=== PATIENT | male | born 1955 | race Caucasian/White ===

== ENCOUNTER 2017-08-26 13:55 | Inpatient (IN) | payer OTHER ==
[2017-08-26] MEDS ORDERED: Morphine INJ* 4 MG/ML 1 ML CARPUJECT IV ONE ×2 (16:24→23:17)
--- NOTE | 2017-08-26 18:00 | RAD ---
INDICATION: Left hip pain after fall COMPARISON: None TECHNIQUE: An AP view of the pelvis and AP views of the hip in neutral and abducted position were obtained FINDINGS: Bones: There are no acute bony findings. Joint spaces: The hips articulate normally. The joint spaces are preserved. SI joints/symphysis: The SI joints and symphysis are intact. Other: None IMPRESSION: NO ACUTE BONY FINDINGS.
--- NOTE | 2017-08-26 19:10 | RAD ---
INDICATION: Left hip pain. COMPARISON: Left hip same date. CT pelvis 2010 TECHNIQUE: Noncontrast axial source images were obtained from the iliac crests through the symphysis pubis. FINDINGS: There is a not significantly displaced fracture of the greater trochanter of the left femur. There are no other acute bony findings. There are apparent old superior and inferior pubic rami fractures. The SI joints and symphysis appear intact. The soft tissue elements about the visualized pelvis appear normal. The visualized intraperitoneal structures are remarkable for aortic intimal calcifications. The bladder and prostate appear normal. IMPRESSION: ISOLATED FRACTURE OF THE LEFT GREATER TROCHANTER.
--- NOTE | 2017-08-26 20:28 | PN ---
Progress Note - Progress Note Date of Service: 08/26/17 Note: Patient signed out by Ny ELY pending xray for disposition 61M presents with left hip pain s/p falling in his bathroom. no other injury. no numbness or tingling. copd, mi with stent PMH PE: right leg: good pulses, tender over left hip, limited ROM of hip chest: lungs CTA heart:RRR xray normal but patient states unable to bear weight so will get CT CT shows isolate fracture of left greater trochanter explained results to patient and he states that can not go home as will not be able to use just crutches. discussed with dr rolon for admission. said to road test and he failed. Dr rolon agrees to admit. He then stated to dr rolon that had a syncopal episode that caused the fall when he original said was just a mechanical fall. Dr del angel 9:00: discharge with crutches, can place some weight on area when stands, will be unable to walk on area Diagnosis: fall, left greater trochanter fracture Disposition: Admitted Condition: stable
[2017-08-26] MEDS ORDERED: oxyCODONE/Acetamin 5/325 MG* TAB PO ONE (21:18)
[2017-08-26] MEDS ORDERED: Ondansetron INJ* 2 MG/ML VIAL IV PRN (23:18)
[2017-08-26] MEDS ORDERED: Acetaminophen TAB* 325 MG PO PRN (23:18)
[2017-08-26] MEDS ORDERED: Al Hydrox/Mg Hydrox/Simet LIQ* 30 ML UDC PO PRN (23:18)
[2017-08-26] MEDS ORDERED: Mouth Piece, Nicotine* 1 EACH CARTRIDGE INH PRN (23:28)
[2017-08-26] MEDS ORDERED: Albuterol HFA INHALER* 8 gm MDI INH PRN (23:28)
[2017-08-26] MEDS ORDERED: Albuterol/Ipratropium NEB.SOL* Albuterol 2.5 MG/Ipratropium 0.5 MG 3 ML INH PRN (23:28)
[2017-08-26] MEDS ORDERED: Nicotine Inhaler* 10 MG AMP INH PRN (23:28)
[2017-08-27 00:43] LABS: Hematocrit 45 % (42-52); Mean Corpuscular HGB Conc 33 g/dl (31-36); Mean Corpuscular Hemoglobin 30 pg (27-31); Mean Corpuscular Volume 91 fL (80-94); Mean Platelet Volume 10 um3 (7.4-10.4); Red Blood Count 4.99 10^6/ul (4.0-5.4); Red Cell Distribution Width 14 % (10.5-15); White Blood Count 15.4 10^3/ul (3.5-10.8)
[2017-08-27] MEDS: oxyCODONE/Acetamin 5/325 MG* TAB PO PRN ×2 (01:50→19:45)
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
[2017-08-27] MEDS: Heparin VIAL(*) 5000 UNITS/ML VIAL (FIVE THOUSAND) SUBCUT SCH ×3 (06:11→22:46)
[2017-08-27] MEDS: Morphine INJ* 2 MG/ML 1 ML SYRINGE (TWO MG - NEW SYRINGE VERSION) IV PRN ×3 (06:12→19:49)
[2017-08-27 06:50] LABS: Urine Bilirubin Negative (Negative); Urine Glucose Negative (Negative); Urine Nitrite Negative (Negative)
[2017-08-27 06:50] LABS: BUN/Creatinine Ratio 7.8 (8-20); Calcium 9.4 mg/dL (8.6-10.3); EGFR African American 109.6 (>60); EGFR Non-African American 85.2 (>60); Globulin 2.6 g/dL (2-4); Total Bilirubin 0.8 mg/dL (0.2-1.0); Total Protein 6.6 g/dL (6.4-8.9)
[2017-08-27] MEDS ORDERED: Influenza VAC *QUAD* 2017-18* 0.5 ML SYRINGE IM ONE (09:00)
[2017-08-27] MEDS ORDERED: Pneumococcal *Vac Polyvalent 0.5 ML VIAL IM ONE (09:00)
[2017-08-27] MEDS: Aspirin EC Low Dose* 81 MG TAB.EC PO SCH (09:51)
--- NOTE | 2017-08-27 10:23 | ED ---
Lower Extremity - HPI Summary HPI Summary: Patient presents to the ED with CC of left hip pain s/p mechanical fall this afternoon. He was unable to get up or ambulate and called ambulance. He denies any other sig injuries including head injury or LOC. He remembers falling per patient. History of COPD and stent placement s/p CT. Denies other complaints at this time. Pain is 8/10 and constant, worse with movement and better with rest. There is no obvious deformity seen. No internal rotation of the leg. He states he is unable to move the extremity. No neuro deficits clearly identified on PE. - History of Current Complaint Chief Complaint: EDExtremityLower Stated Complaint: LEFT HIP PAIN, FALL Time Seen by Provider: 08/26/17 15:49 Hx Obtained From: Patient Mechanism Of Injury: Fall From A Standing Position Onset of Pain: Minutes Onset/Duration: Minutes Severity Initially: Severe Severity Currently: Severe Pain Intensity: 6 Pain Scale Used: 0-10 Numeric Timing: Constant Location: Is Discrete @ - left hip - inner thigh Associated Signs And Symptoms: Positive: Negative Aggravating Factor(s): Standing, Ambulation Alleviating Factor(s): Rest Able to Bear Weight: No - Risk Factors Gout Risk Factors: Age Over 40, Male, Hypertension Septic Arthritis Risk Factor: Negative - Allergies/Home Medications Allergies/Adverse Reactions: Allergies Allergy/AdvReac Type Severity Reaction Status Date / Time No Known Allergies Allergy Verified 05/14/15 19:33 Home Medications: Home Medications Acetylcysteine CAP (RENAL)* 600 mg PO BID 08/27/17 [History Confirmed 08/27/17] Albuterol HFA INHALER* [Ventolin HFA Inhaler*] 2 puff INH Q6H PRN 08/27/17 [ History Confirmed 08/27/17] Atenolol TAB* [Tenormin TAB* 25 MG] 25 mg PO DAILY 08/27/17 [History Confirmed 08/27/17] Carboxymethylcellulos 1% OPTH* [Celluvisc 1% OPTH*] 1 drop RIGHT EYE Q3HR [History Confirmed 08/27/17] DULoxetine DR CAP* [Cymbalta CAP*] 90 mg PO DAILY 08/27/17 [History Confirmed ] Erythromycin OPTH OINT* [Erythromycin 0.5% OPTH OINT*] 1 applic RIGHT EYE BEDTIME 08/27/17 [History Confirmed 08/27/17] Multivitamins/Minerals TAB* [Theragran/minerals TAB*] 1 tab PO DAILY 08/27/17 [ History Confirmed 08/27/17] Nutritional Supplements [Ensure] 1 pow PO TID 08/27/17 [History Confirmed ] QUEtiapine TAB* [SEROquel TAB*] 50 mg PO BEDTIME 08/27/17 [History Confirmed ] hydrOXYzine HCL TAB* [Atarax 25 MG TAB*] 25 mg PO DAILY PRN 08/27/17 [History Confirmed 08/27/17] PMH/Surg Hx/FS Hx/Imm Hx Previously Healthy: Yes Endocrine/Hematology History: Denies: Hx Diabetes Cardiovascular History: Reports: Hx Hypertension Denies: Hx Congestive Heart Failure Respiratory History: Reports: Hx Chronic Obstructive Pulmonary Disease (COPD), Hx Pneumonia, Other Respiratory Problems/Disorders - current smoker GI History: Reports: Other GI Disorders - HEP C History: Denies: Hx Renal Disease Musculoskeletal History: Reports: Hx Back Problems - chronic lower back issues Sensory History: Reports: Hx Contacts or Glasses Denies: Hx Hearing Aid Opthamlomology History: Reports: Hx Contacts or Glasses Neurological History: Reports: Other Neuro Impairments/Disorders - Pedal neuropathy, Aneurysm Psychiatric History: Reports: Hx Depression - Surgical History Surgery Procedure, Year, and Place: MANDIBLE FOR FX, LT LUNG REPAIR FOR PNEUMOTHORAX, tonsilectomy Hx Anesthesia Reactions: No - Immunization History Immunizations Up to Date: Yes Infectious Disease History: Yes Infectious Disease History: Reports: Hx Hepatitis, Hx of Known/Suspected MRSA Denies: Traveled Outside the [place] in Last 30 Days - Social History Occupation: Unemployed Lives: Alone Alcohol Use: None Hx Substance Use: Yes Substance Use Type: Reports: Marijuana Hx Tobacco Use: Yes Smoking Status (MU): Heavy Every Day Tobacco Smoker Type: Cigarettes Have You Smoked in the Last Year: Yes Review of Systems Constitutional: Negative Negative: Fever, Chills, Fatigue Eyes: Negative Cardiovascular: Negative Respiratory: Negative Genitourinary: Negative Positive: no symptoms reported, see HPI Positive: Arthralgia - left lateral hip with inner thigh pain Neurological: Negative All Other Systems Reviewed And Are Negative: Yes Physical Exam Triage Information Reviewed: Yes Vital Signs On Initial Exam: Initial Vitals Temp Pulse Resp BP Pulse Ox 97.8 F 95 17 97/60 96 08/26/17 15:49 08/26/17 15:49 08/26/17 15:49 08/26/17 15:49 08/26/17 15:49 Vital Signs Reviewed: Yes Appearance: Positive: Well-Appearing, Well-Nourished Skin: Positive: Warm, Skin Color Reflects Adequate Perfusion Head/Face: Positive: Normal Head/Face Inspection Eyes: Positive: EOMI, XIAO, Conjunctiva Clear Neck: Positive: No Lymphadenopathy Respiratory/Lung Sounds: Positive: Clear to Auscultation, Breath Sounds Present Cardiovascular: Positive: RRR, Pulses are Symmetrical in both Upper and Lower Extremities Musculoskeletal: Positive: Pain @ - inner thigh and lateral hip Neurological: Positive: Speech Normal Psychiatric: Positive: Normal - Elsi Coma Scale Coma Scale Total: 15 Diagnostics - Vital Signs Vital Signs Temp Pulse Resp BP Pulse Ox 08/26/17 21:47 19 08/26/17 21:05 97.7 F 89 16 97/60 94 08/26/17 16:36 19 08/26/17 15:49 97.8 F 95 17 97/60 96 - Laboratory Lab Results: Lab Results 08/26/17 08/26/17 08/26/17 Range/Units 06:00 16:35 16:35 WBC 15.4 H (3.5-10.8) 10^3/ul RBC 4.99 (4.0-5.4) 10^6/ul Hgb 15.0 (14.0-18.0) g/dl Hct 45 (42-52) % MCV 91 (80-94) fL MCH 30 (27-31) pg MCHC 33 (31-36) g/dl RDW 14 (10.5-15) % Plt Count 264 (150-450) 10^3/ul MPV 10 (7.4-10.4) um3 Neut % (Auto) 78.7 (38-83) % Lymph % (Auto) 12.4 L (25-47) % [place] % (Auto) 7.4 (1-9) % Eos % (Auto) 0.9 (0-6) % Baso % (Auto) 0.6 (0-2) % Absolute Neuts (auto) 12.1 H (1.5-7.7) 10^3/ul Absolute Lymphs (auto) 1.9 (1.0-4.8) 10^3/ul Absolute Monos (auto) 1.1 H (0-0.8) 10^3/ul Absolute Eos (auto) 0.1 (0-0.6) 10^3/ul Absolute Basos (auto) 0.1 (0-0.2) 10^3/ul Absolute Nucleated RBC 0.01 10^3/ul Nucleated RBC % 0 INR (Anticoag Therapy) 0.84 L (0.89-1.11) Urine Color Lexi Urine Appearance Clear Urine pH 5.0 (5-9) Ur Specific Artie 1.020 (1.010-1.030) Urine Protein Negative (Negative) Urine Ketones Trace H (Negative) Urine Blood Negative (Negative) Urine Nitrate Negative (Negative) Urine Bilirubin Negative (Negative) Urine Urobilinogen Negative (Negative) Ur Leukocyte Esterase Negative (Negative) Urine Glucose Negative (Negative) Result Diagrams: 08/26/17 16:35 08/27/17 06:06 Lab Statement: Any lab studies that have been ordered have been reviewed, and results considered in the medical decision making process. Lower Extremity Course/Dx - Course Course Of Treatment: left hip - inner thigh pain s/p fall from standing position. Patient states fall was mechanical. Denies other injuries during fall. Unable to bear weight. 05/08. 07/08 with movement. Xray of hip and pelvis obtained. Awaiting results, signed out to Rin Guallpa PA-C at 5:30pm. - Diagnoses Provider Diagnoses: Hip pain Discharge - Discharge Plan Condition: Stable Disposition: ADMITTED TO [facility]
--- NOTE | 2017-08-27 15:58 | PN ---
Subjective Date of Service: 08/27/17 Interval History: Patient seen this afternoon. Reports pain with L hip with any movement. Understands no plans for surgery at this time. Noted that Ortho placed psych consult for SI. Patient asked about this and says he has been having occasional suicidal ideations, more recently after family members have , says "why bother". Denies active plan at this time, then said "I'm all talk". Family History: Unchanged from Admission Social History: Unchanged from Admission Past Medical History: Unchanged from Admission Objective Active Medications: Acetaminophen (Tylenol Tab*) 650 mg PO Q4H PRN Al Hydrox/Mg Hydrox/Simethicone (Maalox Plus*) 30 ml PO Q6H PRN Albuterol (Ventolin Hfa Inhaler*) 2 puff INH Q4H PRN Albuterol/Ipratropium (Duoneb (Albuterol 2.5 Mg/Ipratropium 0.5 Mg)) 1 neb INH Q4H PRN Aspirin (Aspirin Ec Low Dose*) 81 mg PO DAILY [facility] Device (Nicotine Mouth Piece*) 1 each INH .USE WITH NICOTROL PRN Docusate Sodium (Colace Cap*) 100 mg PO BID PRN Heparin Sodium (Porcine) (Heparin Vial(*)) 5,000 units SUBCUT Q8HR [facility] Morphine Sulfate (Morphine Inj (Syringe)*) 2 mg IV Q4H MO Nicotine (Nicotine Inhaler*) 10 mg INH Q2H PRN Nicotine (Nicotine Patch 21 Mg/24 Hr*) 1 patch TRANSDERM DAILY@0800 [facility] Ondansetron HCl (Zofran Inj*) 4 mg IV Q4H PRN Oxycodone/Acetaminophen (Percocet 5/325 Tab*) 1 tab PO Q4H PRN Pharmacy Profile Note (Nicotine Patch Removal Note*) 1 note FOLLOW UP 2100 [facility] Senna (Senokot Tab*) 1 tab PO BID PRN Vital Signs 08/26/17 08/26/17 08/27/17 23:54 23:57 00:45 Temperature 97.3 F 97.7 F Pulse Rate 88 80 Respiratory 19 19 18 Rate Blood Pressure 99/64 99/53 (mmHg) O2 Sat by Pulse 91 91 Oximetry 08/27/17 08/27/17 08/27/17 00:54 01:50 04:23 Temperature 97.7 F Pulse Rate 82 Respiratory 18 18 20 Rate Blood Pressure 99/53 (mmHg) O2 Sat by Pulse 91 Oximetry 08/27/17 08/27/17 08/27/17 06:12 07:55 08:00 Temperature 96.5 F Pulse Rate 78 Respiratory 20 22 22 Rate Blood Pressure 118/74 (mmHg) O2 Sat by Pulse 91 Oximetry Oxygen Devices in Use Now: None Appearance: Middle-aged, disheveled, M, laying in bed in NAD Eyes: No Scleral Icterus Ears/Nose/Mouth/Throat: Mucous Membranes Moist Neck: NL Appearance and Movements; NL JVP Respiratory: Symmetrical Chest Expansion and Respiratory Effort, Clear to Auscultation Cardiovascular: NL Sounds; No Murmurs; No JVD, RRR Abdominal: NL Sounds; No Tenderness; No Distention Lymphatic: No Cervical Adenopathy Extremities: No Edema, - - Clubbing of fingers, L hip pain with movement Skin: No Rash or Ulcers Neurological: Alert and Oriented x 3 Result Diagrams: 08/26/17 16:35 08/27/17 06:06 Microbiology and Other Data: Microbiology 08/27/17 00:04 Nasal Screen MRSA (PCR)(LOAN) - Final Nasal Mrsa Negative Assess/Plan/Problems-Billing Assessment: Fall, possible syncope, L greater trochanteric fx in a 61 yo M with hx of CAD, COPD, tobacco abuse, depression - Patient Problems (1) Fracture of greater trochanter of left femur Current Visit: Yes Comment: Appreciate Ortho assistance. As per noted will plan for non-operative management. Patient is WBAT. (2) Fall Current Visit: Yes Comment: Possible syncope. Continue to monitor on tele. Cannot check orthostatics due to fx. PT eval is in. Analagesia prn (3) Passive suicidal ideations Current Visit: Yes Comment: Psych consulted (4) CAD (coronary artery disease) Current Visit: Yes Comment: Continue ASA. Holding atenolol with borderline BPs (5) COPD (chronic obstructive pulmonary disease) Current Visit: Yes Comment: Dulera, prn duoneb. No evidence of exacerbation. (6) Depression Current Visit: Yes Comment: Continue home meds (7) Tobacco abuse Current Visit: Yes Comment: NRT (8) DVT prophylaxis Current Visit: Yes Comment: HSQ Status and Disposition: Inpatient for fracture, will likely need CHARLENE
[2017-08-27] MEDS: Nicotine PATCH 21 MG/24 HR* PATCH TRANSDERM SCH (16:02)
--- NOTE | 2017-08-27 19:14 | PN ---
Progress Note - Progress Note Date of Service: 08/27/17 Note: Pt seen earlier today by ortho JHOANA. I had reviewed his x-rays yesterday when he was in the ED and only the CT scan showed the fx. D/W him that there are muscles that attach at that area and this is why it hurts trying to move the leg. The fx'd area is not part of the weight bearing portion of the femur and this is why he can put weight on the leg without restriction. D/w him the most intense period of pain is now and this will fade over the next few days. He should continue to work with PT to be mobile and follow up in the office in 10 days and we will get repeat x-rays to make sure he is still non-displaced.
[2017-08-27] MEDS: Docusate CAP* 100 MG PO PRN (19:45)
[2017-08-27] MEDS: Senna TAB PO PRN (19:45)
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
[2017-08-27] MEDS: QUEtiapine TAB* 25 MG PO SCH (21:11)
[2017-08-27] MEDS: Gabapentin CAP(*) 400 MG PO SCH (21:11)
[2017-08-28] MEDS: Mometasone/Formoter 200/5 MDI INH SCH ×2 (04:57→17:12)
[2017-08-28] MEDS: Nicotine Patch Removal NOTE FOLLOW UP SCH ×2 (04:57→21:03)
[2017-08-28] MEDS: Heparin VIAL(*) 5000 UNITS/ML VIAL (FIVE THOUSAND) SUBCUT SCH ×3 (05:32→21:00)
[2017-08-28] MEDS: Morphine INJ* 2 MG/ML 1 ML SYRINGE (TWO MG - NEW SYRINGE VERSION) IV PRN ×3 (07:26→20:55)
[2017-08-28] MEDS: DULoxetine DR CAP* 30 MG CAP.DR PO SCH (07:27)
[2017-08-28] MEDS: Docusate CAP* 100 MG PO PRN (07:27)
[2017-08-28] MEDS: Gabapentin CAP(*) 400 MG PO SCH ×3 (07:27→20:58)
[2017-08-28] MEDS: Nicotine PATCH 21 MG/24 HR* PATCH TRANSDERM SCH (07:27)
[2017-08-28] MEDS: Aspirin EC Low Dose* 81 MG TAB.EC PO SCH (07:27)
[2017-08-28] MEDS ORDERED: Nicotine PATCH 21 MG/24 HR* PATCH TRANSDERM SCH (08:00)
[2017-08-28 08:01] LABS: Hematocrit 45 % (42-52); Mean Corpuscular HGB Conc 34 g/dl (31-36); Mean Corpuscular Hemoglobin 30 pg (27-31); Mean Corpuscular Volume 90 fL (80-94); Mean Platelet Volume 8 um3 (7.4-10.4); Red Blood Count 4.94 10^6/ul (4.0-5.4); Red Cell Distribution Width 14 % (10.5-15); White Blood Count 9.5 10^3/ul (3.5-10.8)
[2017-08-28 08:27] LABS: BUN/Creatinine Ratio 8.2 (8-20); Calcium 9.2 mg/dL (8.6-10.3); EGFR African American 99.3 (>60); EGFR Non-African American 77.2 (>60); Potassium 4.3 mmol/L (3.5-5.0)
[2017-08-28] MEDS: oxyCODONE/Acetamin 5/325 MG* TAB PO PRN (09:58)
[2017-08-28] MEDS: Atenolol TAB* 25 MG PO SCH (09:59)
[2017-08-28] MEDS ORDERED: NS 0.9% 1000 ML* 1,000 ML IV ONE (10:35)
--- NOTE | 2017-08-28 13:12 | PN ---
Subjective Date of Service: 08/28/17 Interval History: Patient seen this morning. Continues to have pain, nervous about bearing weight. Says appetite has been improving, he ate all of his breakfast. Denies EtOH use. Family History: Unchanged from Admission Social History: Unchanged from Admission Past Medical History: Unchanged from Admission Objective Active Medications: Acetaminophen (Tylenol Tab*) 650 mg PO Q4H PRN PRN Reason: FEVER/PAIN Al Hydrox/Mg Hydrox/Simethicone (Maalox Plus*) 30 ml PO Q6H PRN PRN Reason: INDIGESTION Last Admin: 08/27/17 06:10 Dose: 30 ml Albuterol (Ventolin Hfa Inhaler*) 2 puff INH Q4H PRN PRN Reason: SOB/WHEEZING Albuterol/Ipratropium (Duoneb (Albuterol 2.5 Mg/Ipratropium 0.5 Mg)) 1 neb INH Q4H PRN PRN Reason: SOB/WHEEZING Aspirin (Aspirin Ec Low Dose*) 81 mg PO DAILY [facility] Last Admin: 08/28/17 07:27 Dose: 81 mg Atenolol (Tenormin Tab*) 25 mg PO DAILY [facility] Last Admin: 08/28/17 09:59 Dose: 25 mg Device (Nicotine Mouth Piece*) 1 each INH .USE WITH NICOTROL PRN PRN Reason: CRAVING Docusate Sodium (Colace Cap*) 100 mg PO BID PRN PRN Reason: CONSTIPATION Last Admin: 08/28/17 07:27 Dose: 100 mg Duloxetine HCl (Cymbalta Cap*) 90 mg PO DAILY [facility] Last Admin: 08/28/17 07:27 Dose: 90 mg Gabapentin (Neurontin Cap(*)) 1,200 mg PO TID [facility] Last Admin: 08/28/17 07:27 Dose: 1,200 mg Heparin Sodium (Porcine) (Heparin Vial(*)) 5,000 units SUBCUT Q8HR [facility] Last Admin: 08/28/17 05:32 Dose: 5,000 units Sodium Chloride (Ns 0.9% 1000 Ml*) 1,000 mls @ 1,000 mls/hr IV .PER RATE ONE Stop: 08/28/17 11:34 Mometasone Furoate/Formoterol Fumar (Dulera 200/5 Mdi*) 1 puff INH BID [facility] Last Admin: 08/28/17 04:57 Dose: Not Given Morphine Sulfate (Morphine Inj (Syringe)*) 2 mg IV Q4H PRN PRN Reason: PAIN Last Admin: 08/28/17 07:26 Dose: 2 mg Nicotine (Nicotine Inhaler*) 10 mg INH Q2H PRN PRN Reason: CRAVING Nicotine (Nicotine Patch 21 Mg/24 Hr*) 1 patch TRANSDERM DAILY@0800 [facility] Last Admin: 08/28/17 07:27 Dose: 1 patch Ondansetron HCl (Zofran Inj*) 4 mg IV Q4H PRN PRN Reason: NAUSEA/VOMITING Last Admin: 08/27/17 19:46 Dose: 4 mg Oxycodone/Acetaminophen (Percocet 5/325 Tab*) 1 tab PO Q4H PRN PRN Reason: Pain Last Admin: 08/28/17 09:58 Dose: 1 tab Pharmacy Profile Note (Nicotine Patch Removal Note*) 1 note FOLLOW UP 2100 [facility] Last Admin: 08/28/17 04:57 Dose: Not Given Quetiapine Fumarate (Seroquel Tab*) 50 mg PO BEDTIME [facility] Last Admin: 08/27/17 21:11 Dose: 50 mg Senna (Senokot Tab*) 1 tab PO BID PRN PRN Reason: CONSTIPATION Last Admin: 08/27/17 19:45 Dose: 1 tab Vital Signs 08/27/17 08/27/17 08/27/17 15:21 17:45 19:21 Temperature 97.8 F 97.4 F Pulse Rate 81 73 Respiratory 16 16 16 Rate Blood Pressure 118/64 117/64 (mmHg) O2 Sat by Pulse 94 95 Oximetry 08/28/17 08/28/17 08/28/17 09:44 09:58 10:05 Temperature 98 F Pulse Rate 133 Respiratory 20 18 18 Rate Blood Pressure 99/69 (mmHg) O2 Sat by Pulse 92 Oximetry Oxygen Devices in Use Now: None Appearance: Middle-aged, disheveled M, laying in bed in NAD Eyes: No Scleral Icterus Ears/Nose/Mouth/Throat: - - Dry MM Neck: NL Appearance and Movements; NL JVP Respiratory: Symmetrical Chest Expansion and Respiratory Effort, Clear to Auscultation Cardiovascular: NL Sounds; No Murmurs; No JVD, - - Tachycardic Abdominal: NL Sounds; No Tenderness; No Distention Lymphatic: No Cervical Adenopathy Extremities: No Edema Skin: No Rash or Ulcers Neurological: Alert and Oriented x 3 Result Diagrams: 08/28/17 07:54 08/28/17 07:54 Additional Lab and Data: . Microbiology and Other Data: . Assess/Plan/Problems-Billing Assessment: Fall, possible syncope, L greater trochanteric fx in a 61 yo M with hx of CAD, COPD, tobacco abuse, depression - Patient Problems (1) Fracture of greater trochanter of left femur Current Visit: Yes Comment: Appreciate Ortho assistance. As per noted will plan for non-operative management. Patient is WBAT. PT eval. (2) Tachycardia Current Visit: Yes Comment: Sinus. May be combination of dehydration, pain and rebound-tachycardia from holding beta-kari. Resume Atenolol, will bolus 1L NS. (3) Fall Current Visit: Yes Comment: Possible syncope. Continue to monitor on tele. PT eval. Analagesia prn (4) Passive suicidal ideations Current Visit: Yes Comment: Psych consulted (5) CAD (coronary artery disease) Current Visit: Yes Comment: Continue ASA. Resume atenolol. (6) COPD (chronic obstructive pulmonary disease) Current Visit: Yes Comment: Dulera, prn duoneb. No evidence of exacerbation. (7) Depression Current Visit: Yes Comment: Continue home meds (8) Tobacco abuse Current Visit: Yes Comment: NRT (9) DVT prophylaxis Current Visit: Yes Comment: HSQ Status and Disposition: Inpatient for fracture, will likely need [facility]LEN[facility]
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
[2017-08-28] MEDS: QUEtiapine TAB* 25 MG PO SCH (20:59)
[2017-08-29] MEDS: oxyCODONE/Acetamin 5/325 MG* TAB PO PRN ×2 (04:11→08:10)
[2017-08-29] MEDS ORDERED: NS 0.9% 250 ML* 250 ML IV ONE (05:04)
[2017-08-29] MEDS: Heparin VIAL(*) 5000 UNITS/ML VIAL (FIVE THOUSAND) SUBCUT SCH ×3 (05:17→23:18)
[2017-08-29] MEDS: Mometasone/Formoter 200/5 MDI INH SCH ×4 (07:44→21:39)
[2017-08-29] MEDS: Nicotine PATCH 21 MG/24 HR* PATCH TRANSDERM SCH (08:08)
[2017-08-29] MEDS: Gabapentin CAP(*) 400 MG PO SCH ×3 (08:09→23:13)
[2017-08-29] MEDS: DULoxetine DR CAP* 30 MG CAP.DR PO SCH (08:09)
[2017-08-29] MEDS: Aspirin EC Low Dose* 81 MG TAB.EC PO SCH (08:10)
[2017-08-29] MEDS: Atenolol TAB* 25 MG PO SCH (08:10)
--- NOTE | 2017-08-29 10:29 | PN ---
Subjective Date of Service: 08/29/17 Interval History: HOSPITALIST PROGRESS NOTE Patient seen and examined at bedside. He's trying to work with PT, but experiencing severe thigh pain and spasms. Family History: Unchanged from Admission Social History: Unchanged from Admission Past Medical History: Unchanged from Admission Objective Active Medications: Acetaminophen (Tylenol Tab*) 650 mg PO Q4H PRN PRN Reason: FEVER/PAIN Al Hydrox/Mg Hydrox/Simethicone (Maalox Plus*) 30 ml PO Q6H PRN PRN Reason: INDIGESTION Last Admin: 08/27/17 06:10 Dose: 30 ml Albuterol (Ventolin Hfa Inhaler*) 2 puff INH Q4H PRN PRN Reason: SOB/WHEEZING Albuterol/Ipratropium (Duoneb (Albuterol 2.5 Mg/Ipratropium 0.5 Mg)) 1 neb INH Q4H PRN PRN Reason: SOB/WHEEZING Aspirin (Aspirin Ec Low Dose*) 81 mg PO DAILY [facility] Last Admin: 08/29/17 08:10 Dose: 81 mg Atenolol (Tenormin Tab*) 25 mg PO DAILY [facility] Last Admin: 08/29/17 08:10 Dose: 25 mg Device (Nicotine Mouth Piece*) 1 each INH .USE WITH NICOTROL PRN PRN Reason: CRAVING Docusate Sodium (Colace Cap*) 100 mg PO BID PRN PRN Reason: CONSTIPATION Last Admin: 08/28/17 07:27 Dose: 100 mg Duloxetine HCl (Cymbalta Cap*) 90 mg PO DAILY [facility] Last Admin: 08/29/17 08:09 Dose: 90 mg Gabapentin (Neurontin Cap(*)) 1,200 mg PO TID [facility] Last Admin: 08/29/17 08:09 Dose: 1,200 mg Heparin Sodium (Porcine) (Heparin Vial(*)) 5,000 units SUBCUT Q8HR [facility] Last Admin: 08/29/17 05:17 Dose: 5,000 units Mometasone Furoate/Formoterol Fumar (Dulera 200/5 Mdi*) 1 puff INH BID [facility] Last Admin: 08/29/17 07:44 Dose: Not Given Morphine Sulfate (Morphine Inj (Syringe)*) 2 mg IV Q4H PRN PRN Reason: PAIN Last Admin: 08/28/17 20:55 Dose: 2 mg Nicotine (Nicotine Inhaler*) 10 mg INH Q2H PRN PRN Reason: CRAVING Nicotine (Nicotine Patch 21 Mg/24 Hr*) 1 patch TRANSDERM DAILY@0800 [facility] Last Admin: 08/29/17 08:08 Dose: 1 patch Ondansetron HCl (Zofran Inj*) 4 mg IV Q4H PRN PRN Reason: NAUSEA/VOMITING Last Admin: 08/27/17 19:46 Dose: 4 mg Oxycodone/Acetaminophen (Percocet 5/325 Tab*) 1 tab PO Q4H PRN PRN Reason: Pain Last Admin: 08/29/17 08:10 Dose: 1 tab Pharmacy Profile Note (Nicotine Patch Removal Note*) 1 note FOLLOW UP 2100 [facility] Last Admin: 08/28/17 21:03 Dose: Not Given Quetiapine Fumarate (Seroquel Tab*) 50 mg PO BEDTIME [facility] Last Admin: 08/28/17 20:59 Dose: 50 mg Senna (Senokot Tab*) 1 tab PO BID PRN PRN Reason: CONSTIPATION Last Admin: 08/27/17 19:45 Dose: 1 tab Vital Signs 08/29/17 08/29/17 08/29/17 04:11 07:28 07:43 Temperature 98.8 F Pulse Rate 67 Respiratory 18 14 16 Rate Blood Pressure 104/59 (mmHg) O2 Sat by Pulse 94 Oximetry Oxygen Devices in Use Now: None Appearance: Elderly male lying in bed in moderate distress due to pain. Eyes: No Scleral Icterus Ears/Nose/Mouth/Throat: Mucous Membranes Moist Neck: Trachea Midline Respiratory: Symmetrical Chest Expansion and Respiratory Effort, Clear to Auscultation Cardiovascular: RRR - Normal S1 and S2 Abdominal: NL Sounds; No Tenderness; No Distention Extremities: No Edema Neurological: Alert and Oriented x 3, NL Muscle Strength and Tone Result Diagrams: 08/28/17 07:54 08/28/17 07:54 Assess/Plan/Problems-Billing Assessment: Mr Juares is a 61 yo M with hx of CAD, COPD, tobacco abuse, depression who presented to ED after a fall vs syncope, found to have left greater trochanteric fracture. - Patient Problems (1) Fracture of greater trochanter of left femur Comment: - Appreciate Ortho input - non-operative management. - Continue WBAT and PT as tolerated. - Continue pain management. - Start Robaxin for muscle spasms. (2) Tachycardia Comment: - Secondary to dehydration, pain and rebound-tachycardia - resolved. - Continue Atenolol. (3) Fall Comment: - Fall vs syncope. No significant arrhythmias on Telemetry. - Check echocardiogarm. (4) Passive suicidal ideations Comment: - Psych input appreciated - continue Duloxetine. (5) CAD (coronary artery disease) Comment: - Continue ASA and atenolol. (6) COPD (chronic obstructive pulmonary disease) Comment: - No evidence of exacerbation. - Continue bronchodilators. (7) DVT prophylaxis Comment: - SQ heparin. (8) DNR (do not resuscitate) Status and Disposition: Inpatient for management of great trochanter fracture, will likely need CHARLENE.
[2017-08-29] MEDS: Methocarbamol TAB* 500 MG PO PRN ×2 (13:58→23:29)
--- NOTE | 2017-08-29 14:35 | PN ---
Progress Note - Progress Note Date of Service: 08/29/17 SOAP: Subjective: 61 y/o male s/p fall with greater troch fx, non-op, seen by DR. Velarde. Patient has been trying to walk, howevere increased pain, muscle spasm with walking. vss febrile. Objective: General- well appearing, NAD AO MSK- tenderness over mid femur anteriorly and over greater troch region on L left. + DF/PF b/l, neg homans b/l. Vital Signs Temp Pulse Resp BP Pulse Ox 98.4 F 76 18 85/53 94 08/29/17 12:22 08/29/17 12:22 08/29/17 13:58 08/29/17 12:22 08/29/17 12:22 Assessment: Stable s/p greater troch fx, non-op, day #3 Plan: - Continue pain management. Patient had muscle relaxer added o regimen, has not tried. As well will add lidocaine patches for local pain control. - Patient admitted for muliple over co-morbidities, will continue to follow. Active Medications Generic Name Dose Route Start Last Admin Trade Name Freq PRN Reason Stop Dose Admin Acetaminophen 650 mg 08/26/17 23:18 08/29/17 13:58 Tylenol Tab* PO 650 mg Q4H PRN Administration FEVER/PAIN Al Hydrox/Mg Hydrox/Simethicone 30 ml 08/26/17 23:18 08/27/17 06:10 Maalox Plus* PO 30 ml Q6H PRN Administration INDIGESTION Albuterol 2 puff 08/26/17 23:28 Ventolin Hfa Inhaler* INH Q4H PRN SOB/WHEEZING Albuterol/Ipratropium 1 neb 08/26/17 23:28 Duoneb (Albuterol 2.5 Mg/Ipratropium 0.5 Mg) INH Q4H PRN SOB/WHEEZING Aspirin 81 mg 08/27/17 09:00 08/29/17 08:10 Aspirin Ec Low Dose* PO 81 mg DAILY DAPHNE Administration Atenolol 25 mg 08/28/17 10:00 08/29/17 08:10 Tenormin Tab* PO 25 mg DAILY DAPHNE Administration Device 1 each 08/26/17 23:28 Nicotine Mouth Piece* INH .USE WITH NICOTROL PRN CRAVING Docusate Sodium 100 mg 08/26/17 23:18 11/30/17 07:27 Colace Cap* PO 100 mg BID PRN Administration CONSTIPATION Duloxetine HCl 90 mg 08/28/17 09:00 08/29/17 08:09 Cymbalta Cap* PO 90 mg DAILY DAPHNE Administration Gabapentin 1,200 mg 08/27/17 21:00 08/29/17 13:57 Neurontin Cap(*) PO 1,200 mg TID DAPHNE Administration Heparin Sodium (Porcine) 5,000 units 08/27/17 06:00 08/29/17 13:57 Heparin Vial(*) SUBCUT 5,000 units Q8HR DAPHNE Administration Lidocaine 1 patch 08/30/17 09:00 Lidoderm 5% Patch* TRANSDERM DAILY DAPHNE Methocarbamol 500 mg 08/29/17 10:27 08/29/17 13:58 Robaxin Tab* PO 500 mg TID PRN Administration Muscle spasm Mometasone Furoate/Formoterol Fumar 1 puff 08/29/17 11:00 08/29/17 11:23 Dulera 200/5 Mdi* INH 1 puff BID DAPHNE Administration Morphine Sulfate 2 mg 08/26/17 23:18 08/28/17 20:55 Morphine Inj (Syringe)* IV 2 mg Q4H PRN Administration PAIN Nicotine 10 mg 08/26/17 23:28 Nicotine Inhaler* INH Q2H PRN CRAVING Nicotine 1 patch 08/27/17 15:35 08/29/17 08:08 Nicotine Patch 21 Mg/24 Hr* TRANSDERM 1 patch DAILY@0800 DAPHNE Administration Ondansetron HCl 4 mg 08/26/17 23:18 08/27/17 19:46 Zofran Inj* IV 4 mg Q4H PRN Administration NAUSEA/VOMITING Oxycodone/Acetaminophen 1 tab 08/26/17 23:18 08/29/17 08:10 Percocet 5/325 Tab* PO 1 tab Q4H PRN Administration Pain Pharmacy Profile Note 1 note 08/27/17 21:00 08/28/17 21:03 Nicotine Patch Removal Note* FOLLOW UP Not Given [facility] Pharmacy Profile Note 1 note 08/29/17 21:00 Lidocaine Patch Remove* N/A [address] [facility] Quetiapine Fumarate 50 mg 08/27/17 21:00 08/28/17 20:59 Seroquel Tab* PO 50 mg BEDTIME DAPHNE Administration Senna 1 tab 08/26/17 23:18 08/27/17 19:45 Senokot Tab* PO 1 tab BID PRN Administration CONSTIPATION
[2017-08-29] MEDS: Morphine INJ* 2 MG/ML 1 ML SYRINGE (TWO MG - NEW SYRINGE VERSION) IV PRN ×2 (16:15→23:30)
[2017-08-29] MEDS: Lidocaine PATCH 5%* 1 PATCH TRANSDERM SCH (17:14)
--- NOTE | 2017-08-29 17:16 | ECHO ---
Patient: AQUILES ALEXANDRA [facility] Rec#: [id number] : 1955 Date: 08/29/2017 Age: 61y Height: 167.6 cm / 66.0 in Weight: 45.4 kg / 100.1 lbs Sex: M BSA: 1.5 Room#: [facility] Admit Date#: 08/26/2017 Type: Inpatient Referring: Mercedes Alcala MD Reading: Michael Landaverde DO Reading: Michael Landaverde DO Floor Layer: Raeann Franklin RN RDCS CC: Yonatan Barroso MD Transthoracic Echocardiogram Indication: Syncope, cardiac murmur BP: 85/53 HR: 75 Rhythm: NSR Findings History: CAD S/P PCI 2007, HTN, COPD, smoker Technical Comments: The study is technically limited due to poor acoustic windows. The study is technically limited due to patient body habitus. The study is technically limited due to the patient's history of COPD. The study is technically limited due to the patient's smoking history. No standard parasternal or apical windows were able to be obtained. Images are from low parasternal and subcostal views. Completed at 1650. Left Ventricle: The left ventricular chamber size is normal. There is no left ventricular hypertrophy. Global left ventricular wall motion and contractility are within normal limits. There is normal left ventricular systolic function. The estimated ejection fraction is 55-60%. Normal left ventricular diastolic filling is observed. Left Atrium: The left atrial chamber size is normal. Right Ventricle: The right ventricular chamber size and systolic function are within normal limits. Right Atrium: The right atrial cavity size is normal. Aortic Valve: The aortic valve is trileaflet. The aortic valve leaflets are mildly thickened. There is a trace of aortic regurgitation. There is no evidence of aortic stenosis. Mitral Valve: The mitral valve leaflets are mildly thickened. There is a trace of mitral regurgitation. There is no evidence of mitral stenosis. Tricuspid Valve: The tricuspid valve leaflets are normal. There is trace to mild tricuspid regurgitation. There is evidence of mild pulmonary hypertension. There is no tricuspid stenosis. Pulmonic Valve: The pulmonic valve appears normal. There is a trace pulmonic regurgitation. There is no pulmonic stenosis. Pericardium: There is no significant pericardial effusion. Aorta: The ascending aorta is not well visualized. The aortic arch is not well visualized. There is moderate dilatation of the aortic root.at 4.4 cm Pulmonary Artery: The main pulmonary artery is not well visualized. Venous: The inferior vena cava appears normal in size. There is a greater than 50% respiratory change in the inferior vena cava dimension. Conclusions No standard parasternal or apical windows were able to be obtained. Images are from low parasternal and subcostal views. Study is diagnostic quality. The left ventricular chamber size is normal. Normal LV wall thickness. Global left ventricular wall motion and contractility are within normal limits. There is normal left ventricular systolic function. The estimated ejection fraction is 55-60%. The left atrial chamber size is normal. The right ventricular chamber size and systolic function are within normal limits. No significant valvular abnormalities noted. There is evidence of mild pulmonary hypertension. There is moderate dilatation of the aortic root at 4.4 cm The aortic arch is not well visualized. The ascending aorta is not well visualized. No prior studies available for comparison at time of interpretation. Measurements Name Value Normal Range RVDdMajor (2D) 3.4 cm (2.2 - 4.4) RVAW (2D) 0.8 cm (0.2 - 0.5) RAd ISD 4CH 4.5 cm (3.4 - 4.9) RA (A4C)W 4.5 cm (2.9 - 4.6) IVSd (2D) 1 cm (0.6 - 1) LVPWd (2D) 0.9 cm (0.6 - 1) LVIDd (2D) 4.7 cm (3.6 - 5.4) LVIDs (2D) 3.4 cm - LV FS (2D) 28 % (25 - 45) Aortic Annulus 2.1 cm (1.4 - 2.6) Ao root diameter (2D) 4.4 cm (2.1 - 3.5) LA dimension (AP) 2D 3.2 cm (2.3 - 3.8) LAd ISD 4CH 4.7 cm (2.9 - 5.3) LA ISD 4CH W 4.5 cm (2.5 - 4.5) Name Value Normal Range MV E-wave Vmax 0.48 m/sec - MV deceleration time 179 msec - MV A-wave Vmax 0.5 m/sec - MV E:A ratio 0.98 ratio - LV septal e' Vmax 0.11 m/sec - LV lateral e' Vmax 0.11 m/sec - LV E:e' septal ratio 4.4 ratio - LV E:e' lateral ratio 4.4 ratio - Name Value Normal Range AV Vmax 1.2 m/sec - AV VTI 22 cm - AV peak gradient 6.1 mmHg - AV mean gradient 3.4 mmHg - LVOT Vmax 0.66 m/sec - LVOT VTI 13.5 cm - LVOT peak gradient 1.7 mmHg - LVOT mean gradient 0.84 mmHg - Name Value Normal Range TR Vmax 2.9 m/sec - TR peak gradient 34 mmHg - RAP 3 mmHg - RVSP 37 mmHg - IVC diameter 1.5 cm - Name Value Normal Range PV Vmax 0.62 m/sec -
[2017-08-29] MEDS: Lidocaine Patch REMOVE* 1 NOTE MISC SCH (23:17)
[2017-08-29] MEDS: Nicotine Patch Removal NOTE FOLLOW UP SCH (23:17)
[2017-08-29] MEDS: QUEtiapine TAB* 25 MG PO SCH (23:17)
[2017-08-30] MEDS: Lidocaine PATCH 5%* 1 PATCH TRANSDERM SCH (07:53)
[2017-08-30] MEDS: Morphine INJ* 2 MG/ML 1 ML SYRINGE (TWO MG - NEW SYRINGE VERSION) IV PRN ×2 (07:53→11:58)
[2017-08-30] MEDS: Nicotine PATCH 21 MG/24 HR* PATCH TRANSDERM SCH (07:54)
[2017-08-30] MEDS: DULoxetine DR CAP* 30 MG CAP.DR PO SCH (07:54)
[2017-08-30] MEDS: Atenolol TAB* 25 MG PO SCH ×2 (07:55→11:52)
[2017-08-30] MEDS: Gabapentin CAP(*) 400 MG PO SCH ×3 (07:55→21:02)
[2017-08-30] MEDS: Aspirin EC Low Dose* 81 MG TAB.EC PO SCH (07:55)
[2017-08-30] MEDS: Heparin VIAL(*) 5000 UNITS/ML VIAL (FIVE THOUSAND) SUBCUT SCH ×3 (07:57→21:10)
[2017-08-30] MEDS: Mometasone/Formoter 200/5 MDI INH SCH (07:57)
[2017-08-30] MEDS ORDERED: Lidocaine PATCH 5%* 1 PATCH TRANSDERM SCH (09:00)
--- NOTE | 2017-08-30 11:08 | PN ---
Progress Note - Progress Note Date of Service: 08/30/17 SOAP: Subjective: Pt is doing well. He continues to have pain. Denies F/C, N/T, and calf pain. Objective: PE 61 y/o WDWN M NAD, lying in bed comfortably LLE- skin intact, tender over greater troch, +DF/PF, calf soft NT, +2 DP pulse, SILT Vital Signs Temp Pulse Resp BP Pulse Ox 98.5 F 71 18 107/59 95 08/30/17 07:34 08/30/17 07:34 08/30/17 07:55 08/30/17 07:34 08/30/17 07:34 Assessment: Stable s/p left greater troch fx, non-op, day #4 Plan: - Continue pain management. Cont muscle relaxer and lidocaine patch -WBAT LLE with crutches or walker - Pt admitted for multiple comorbidities - dispo per medicine. Orthopedically stable for DC - will cont to follow
[2017-08-30] MEDS ORDERED: HYDROcodone/ACETAMIN 5-325 MG* 1 TAB PO PRN (13:19)
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
[2017-08-30] MEDS: Morphine INJ* 4 MG/ML 1 ML CARPUJECT IV PRN ×3 (14:37→21:03)
[2017-08-30] MEDS: HYDROcodone/ACETAMIN 5-325 MG* 1 TAB PO PRN (16:01)
[2017-08-30] MEDS: Methocarbamol TAB* 500 MG PO PRN (18:01)
[2017-08-30] MEDS: QUEtiapine TAB* 25 MG PO SCH (21:08)
[2017-08-30] MEDS: Lidocaine Patch REMOVE* 1 NOTE MISC SCH (21:14)
[2017-08-30] MEDS: Nicotine Patch Removal NOTE FOLLOW UP SCH (21:25)
[2017-08-31] MEDS: Morphine INJ* 4 MG/ML 1 ML CARPUJECT IV PRN ×7 (00:36→20:27)
[2017-08-31] MEDS: Mometasone/Formoter 200/5 MDI INH SCH ×3 (06:45→19:35)
[2017-08-31] MEDS: Heparin VIAL(*) 5000 UNITS/ML VIAL (FIVE THOUSAND) SUBCUT SCH ×3 (07:47→20:26)
[2017-08-31] MEDS: Atenolol TAB* 25 MG PO SCH (09:10)
[2017-08-31] MEDS: DULoxetine DR CAP* 30 MG CAP.DR PO SCH (09:34)
[2017-08-31] MEDS: Methocarbamol TAB* 500 MG PO PRN ×2 (09:34→17:26)
[2017-08-31] MEDS: Gabapentin CAP(*) 400 MG PO SCH ×3 (09:35→20:23)
[2017-08-31] MEDS: Aspirin EC Low Dose* 81 MG TAB.EC PO SCH (09:35)
[2017-08-31] MEDS: Nicotine PATCH 21 MG/24 HR* PATCH TRANSDERM SCH (09:36)
[2017-08-31] MEDS: Lidocaine PATCH 5%* 1 PATCH TRANSDERM SCH (09:37)
--- NOTE | 2017-08-31 10:41 | PN ---
Progress Note - Progress Note Date of Service: 08/31/17 SOAP: Subjective: Pt is doing well. Continued pain despite increase in pain medication. Has pain with WB but has been OOB. Denies F/C, CP/SOB or calf pain Objective: PE: 61 M WDWN LLE- SKin intact, tender over greater troch, able F/E knee. +DF/PF ankle, calf soft NT, NVI Vital Signs Temp Pulse Resp BP Pulse Ox 97.7 F 77 20 94/61 93 08/31/17 07:45 08/31/17 07:45 08/31/17 09:35 08/31/17 09:09 08/31/17 04:06 Assessment: Stable s/p left greater troch fx, non-op, day #5 Plan: - Continue pain management. -Ice pack q shift to help with pain -WBAT LLE with crutches or walker - dispo per medicine. Orthopedically stable for DC. Will likely need CHARLENE - will cont to follow
[2017-08-31] MEDS: HYDROcodone/ACETAMIN 5-325 MG* 1 TAB PO PRN (13:21)
--- NOTE | 2017-08-31 18:45 | PN ---
Subjective Date of Service: 08/31/17 Interval History: HOSPITALIST PROGRESS NOTE Patient seen and examined at bedside. He feels better today. Pain is better controlled and he was able to transfer from a chair to bed, although very slowly. Family History: Unchanged from Admission Social History: Unchanged from Admission Past Medical History: Unchanged from Admission Objective Active Medications: Acetaminophen (Tylenol Tab*) 650 mg PO Q4H PRN PRN Reason: FEVER/PAIN Last Admin: 08/29/17 13:58 Dose: 650 mg Hydrocodone Bitart/Acetaminophen ([place] 5-325 Tab*) 2 tab PO Q4H PRN PRN Reason: Moderate Pain Last Admin: 08/31/17 13:21 Dose: 2 tab Hydrocodone Bitart/Acetaminophen ([place] 5-325 Tab*) 1 tab PO Q4H PRN PRN Reason: Mild Pain Al Hydrox/Mg Hydrox/Simethicone (Maalox Plus*) 30 ml PO Q6H PRN PRN Reason: INDIGESTION Last Admin: 08/27/17 06:10 Dose: 30 ml Albuterol (Ventolin Hfa Inhaler*) 2 puff INH Q4H PRN PRN Reason: SOB/WHEEZING Albuterol/Ipratropium (Duoneb (Albuterol 2.5 Mg/Ipratropium 0.5 Mg)) 1 neb INH Q4H PRN PRN Reason: SOB/WHEEZING Aspirin (Aspirin Ec Low Dose*) 81 mg PO DAILY [facility] Last Admin: 08/31/17 09:35 Dose: 81 mg Atenolol (Tenormin Tab*) 25 mg PO DAILY [facility] Last Admin: 08/31/17 09:10 Dose: Not Given Device (Nicotine Mouth Piece*) 1 each INH .USE WITH NICOTROL PRN PRN Reason: CRAVING Docusate Sodium (Colace Cap*) 100 mg PO BID PRN PRN Reason: CONSTIPATION Last Admin: 08/28/17 07:27 Dose: 100 mg Duloxetine HCl (Cymbalta Cap*) 90 mg PO DAILY [facility] Last Admin: 08/31/17 09:34 Dose: 90 mg Gabapentin (Neurontin Cap(*)) 1,200 mg PO TID [facility] Last Admin: 08/31/17 13:20 Dose: 1,200 mg Heparin Sodium (Porcine) (Heparin Vial(*)) 5,000 units SUBCUT Q8HR [facility] Last Admin: 08/31/17 13:21 Dose: 5,000 units Lidocaine (Lidoderm 5% Patch*) 1 patch TRANSDERM DAILY [facility] Last Admin: 08/31/17 09:37 Dose: 1 patch Methocarbamol (Robaxin Tab*) 500 mg PO TID PRN PRN Reason: Muscle spasm Last Admin: 08/31/17 17:26 Dose: 500 mg Mometasone Furoate/Formoterol Fumar (Dulera 200/5 Mdi*) 1 puff INH BID [facility] Last Admin: 08/31/17 08:11 Dose: 1 puff Morphine Sulfate (Morphine Inj (Syringe)*) 4 mg IV Q2H PRN PRN Reason: SEVERE PAIN Last Admin: 08/31/17 17:21 Dose: 4 mg Nicotine (Nicotine Inhaler*) 10 mg INH Q2H PRN PRN Reason: CRAVING Nicotine (Nicotine Patch 21 Mg/24 Hr*) 1 patch TRANSDERM DAILY@0800 [facility] Last Admin: 08/31/17 09:36 Dose: 1 patch Ondansetron HCl (Zofran Inj*) 4 mg IV Q4H PRN PRN Reason: NAUSEA/VOMITING Last Admin: 08/27/17 19:46 Dose: 4 mg Pharmacy Profile Note (Nicotine Patch Removal Note*) 1 note FOLLOW UP 2099 [facility] Last Admin: 08/30/17 21:25 Dose: Not Given Pharmacy Profile Note (Lidocaine Patch Remove*) 1 note N/A 2099 [facility] Last Admin: 08/30/17 21:14 Dose: 1 note Quetiapine Fumarate (Seroquel Tab*) 50 mg PO BEDTIME [facility] Last Admin: 08/30/17 21:08 Dose: 50 mg Senna (Senokot Tab*) 1 tab PO BID PRN PRN Reason: CONSTIPATION Last Admin: 08/27/17 19:45 Dose: 1 tab Vital Signs 08/31/17 08/31/17 08/31/17 13:21 14:55 15:44 Temperature 98.4 F Pulse Rate 86 Respiratory 18 18 16 Rate Blood Pressure 104/66 117/74 (mmHg) O2 Sat by Pulse 95 Oximetry Oxygen Devices in Use Now: None Appearance: Pleasant gentleman lying in bed in [facility]. Eyes: No Scleral Icterus Ears/Nose/Mouth/Throat: Mucous Membranes Moist Neck: Trachea Midline Respiratory: Symmetrical Chest Expansion and Respiratory Effort, Clear to Auscultation Cardiovascular: RRR - Normal S1 and S2 Abdominal: NL Sounds; No Tenderness; No Distention Neurological: Alert and Oriented x 3, NL Muscle Strength and Tone Result Diagrams: 08/28/17 07:54 08/28/17 07:54 Assess/Plan/Problems-Billing Assessment: Mr Juares is a 61 yo M with hx of CAD, COPD, tobacco abuse, depression who presented to ED after a fall vs syncope, found to have left greater trochanteric fracture. - Patient Problems (1) Fracture of greater trochanter of left femur Comment: - Appreciate Ortho input - non-operative management. - Continue WBAT and PT as tolerated. - Continue pain management - continue Robaxin, [place], and IV Morphine. (2) Tachycardia Comment: - Secondary to dehydration, pain and rebound-tachycardia - resolved. - Continue Atenolol. (3) Fall Comment: - Fall vs syncope. No significant arrhythmias on Telemetry. - Echocardiogarm showed EF 55-60% with no wall motion abnormalities. (4) Passive suicidal ideations Comment: - Psych input appreciated - continue Duloxetine. (5) CAD (coronary artery disease) Comment: - Continue ASA and atenolol. (6) COPD (chronic obstructive pulmonary disease) Comment: - No evidence of exacerbation. - Continue bronchodilators. (7) DVT prophylaxis Comment: - SQ heparin. (8) DNR (do not resuscitate) Status and Disposition: Inpatient for management of great trochanter fracture, will need CHARLENE.
[2017-08-31] MEDS: Lidocaine Patch REMOVE* 1 NOTE MISC SCH (20:24)
[2017-08-31] MEDS: QUEtiapine TAB* 25 MG PO SCH (20:25)
[2017-08-31] MEDS: Nicotine Patch Removal NOTE FOLLOW UP SCH (20:25)
[2017-09-01] MEDS: Morphine INJ* 4 MG/ML 1 ML CARPUJECT IV PRN ×8 (00:31→23:27)
[2017-09-01] MEDS: HYDROcodone/ACETAMIN 5-325 MG* 1 TAB PO PRN ×5 (03:34→22:27)
[2017-09-01] MEDS: Heparin VIAL(*) 5000 UNITS/ML VIAL (FIVE THOUSAND) SUBCUT SCH ×3 (05:44→20:55)
[2017-09-01] MEDS: Methocarbamol TAB* 500 MG PO PRN ×2 (05:57→20:56)
[2017-09-01 06:47] LABS: Hematocrit 39 % (42-52); Hemoglobin 12.9 g/dl (14.0-18.0); Mean Corpuscular HGB Conc 33 g/dl (31-36); Mean Corpuscular Hemoglobin 30 pg (27-31); Mean Corpuscular Volume 91 fL (80-94); Mean Platelet Volume 8 um3 (7.4-10.4); Red Cell Distribution Width 14 % (10.5-15); White Blood Count 6.2 10^3/ul (3.5-10.8)
[2017-09-01 07:02] LABS: BUN/Creatinine Ratio 20.5 (8-20); EGFR African American 120.3 (>60); EGFR Non-African American 93.6 (>60); Potassium 4.4 mmol/L (3.5-5.0)
[2017-09-01] MEDS: Mometasone/Formoter 200/5 MDI INH SCH ×2 (08:00→21:05)
[2017-09-01] MEDS: Lidocaine PATCH 5%* 1 PATCH TRANSDERM SCH (08:43)
[2017-09-01] MEDS: Nicotine PATCH 21 MG/24 HR* PATCH TRANSDERM SCH (08:43)
[2017-09-01] MEDS: Gabapentin CAP(*) 400 MG PO SCH ×3 (08:44→20:57)
[2017-09-01] MEDS: DULoxetine DR CAP* 30 MG CAP.DR PO SCH (08:44)
[2017-09-01] MEDS: Aspirin EC Low Dose* 81 MG TAB.EC PO SCH (08:45)
[2017-09-01] MEDS: Atenolol TAB* 25 MG PO SCH (08:45)
--- NOTE | 2017-09-01 09:05 | PN ---
Progress Note - Progress Note Date of Service: 09/01/17 SOAP: Subjective: []Patient seen out of bed in chair. He denies pain currently but pain may become as severe as 8/10 with movement. Objective: [] Vital Signs Temp 97.7 F 09/01/17 07:47 Pulse 80 09/01/17 08:00 Resp 18 09/01/17 11:00 BP 94/55 09/01/17 07:47 Pulse Ox 97 09/01/17 07:47 Intake & Output 08/31/17 09/01/17 09/01/17 18:59 06:59 18:59 Intake Total 1800 500 200 Output Total 1724 2024 225 Balance 75 -1525 -25 Intake: Oral 1800 500 200 Output: Urine 1724 Other: # Bowel Movements 0 # Voids 3 1 Laboratory Last Values WBC 6.2 10^3/ul (3.5-10.8) 09/01/17 06:06 RBC 4.30 10^6/ul (4.0-5.4) 09/01/17 06:06 Hgb 12.9 g/dl (14.0-18.0) L 09/01/17 06:06 Hct 39 % (42-52) L 09/01/17 06:06 MCV 91 fL (80-94) 09/01/17 06:06 MCH 30 pg (27-31) 09/01/17 06:06 MCHC 33 g/dl (31-36) 09/01/17 06:06 RDW 14 % (10.5-15) 09/01/17 06:06 Plt Count 188 10^3/ul (150-450) 09/01/17 06:06 MPV 8 um3 (7.4-10.4) 09/01/17 06:06 Neut % (Auto) 52.4 % (38-83) 09/01/17 06:06 Lymph % (Auto) 27.9 % (25-47) 09/01/17 06:06 [place] % (Auto) 14.3 % (1-9) H 09/01/17 06:06 Eos % (Auto) 5.0 % (0-6) 09/01/17 06:06 Baso % (Auto) 0.4 % (0-2) 09/01/17 06:06 Absolute Neuts (auto) 3.3 10^3/ul (1.5-7.7) 09/01/17 06:06 Absolute Lymphs (auto) 1.7 10^3/ul (1.0-4.8) 09/01/17 06:06 Absolute Monos (auto) 0.9 10^3/ul (0-0.8) H 09/01/17 06:06 Absolute Eos (auto) 0.3 10^3/ul (0-0.6) 09/01/17 06:06 Absolute Basos (auto) 0 10^3/ul (0-0.2) 09/01/17 06:06 Absolute Nucleated RBC 0 10^3/ul 09/01/17 06:06 Nucleated RBC % 0 09/01/17 06:06 INR (Anticoag Therapy) 0.84 (0.89-1.11) L 08/26/17 16:35 Sodium 139 mmol/L (133-145) 09/01/17 06:06 Potassium 4.4 mmol/L (3.5-5.0) 09/01/17 06:06 Chloride 105 mmol/L (101-111) 09/01/17 06:06 Carbon Dioxide 32 mmol/L (22-32) 09/01/17 06:06 Anion Gap 2 mmol/L (2-11) 09/01/17 06:06 BUN 17 mg/dL (6-24) 09/01/17 06:06 Creatinine 0.83 mg/dL (0.67-1.17) 09/01/17 06:06 Est GFR ( Amer) 120.3 (>60) 09/01/17 06:06 Est GFR (Non-Af Amer) 93.6 (>60) 09/01/17 06:06 BUN/Creatinine Ratio 20.5 (8-20) H 09/01/17 06:06 Glucose 84 mg/dL (70-100) 09/01/17 06:06 Calcium 9.0 mg/dL (8.6-10.3) 09/01/17 06:06 Total Bilirubin 0.80 mg/dL (0.2-1.0) 08/27/17 06:06 AST 12 U/L (13-39) L 08/27/17 06:06 ALT 9 U/L (7-52) 08/27/17 06:06 Alkaline Phosphatase 51 U/L (34-104) 08/27/17 06:06 Troponin I 0.00 ng/mL (<0.04) 08/27/17 06:06 Total Protein 6.6 g/dL (6.4-8.9) 08/27/17 06:06 Albumin 4.0 g/dL (3.2-5.2) 08/27/17 06:06 Globulin 2.6 g/dL (2-4) 08/27/17 06:06 Albumin/Globulin Ratio 1.5 (1-3) 08/27/17 06:06 Urine Color [place] 08/26/17 06:00 Urine Appearance Clear 08/26/17 06:00 Urine pH 5.0 (5-9) 08/26/17 06:00 Ur Specific [place] 1.020 (1.010-1.030) 08/26/17 06:00 Urine Protein Negative (Negative) 08/26/17 06:00 Urine Ketones Trace (Negative) H 08/26/17 06:00 Urine Blood Negative (Negative) 08/26/17 06:00 Urine Nitrate Negative (Negative) 08/26/17 06:00 Urine Bilirubin Negative (Negative) 08/26/17 06:00 Urine Urobilinogen Negative (Negative) 08/26/17 06:00 Ur Leukocyte Esterase Negative (Negative) 08/26/17 06:00 Urine Glucose Negative (Negative) 08/26/17 06:00 General: No acute distress. Calm and cooperative LLE- Skin intact, mildly tender over greater trochanter, able to F/E knee. +DF/ PF ankle, calf soft NT, PT pulses 2+ Assessment: []Left greater trochanter fracture, nonsurgical. Plan: []- Continue pain management. -Ice pack q shift to help with pain -WBAT LLE with crutches or walker - dispo per medicine. Orthopedically stable for DC. Will likely need CHARLENE - will continue to follow
[2017-09-01] MEDS: Morphine TAB Extended Release (*) 15 MG TAB.ER PO SCH (12:43)
--- NOTE | 2017-09-01 13:59 | PN ---
Subjective Date of Service: 09/01/17 Interval History: HOSPITALIST PROGRESS NOTE Patient seen and examined at bedside. Pain is better controlled today and he was able to ambulate to his room door. Willing to try PO Morphine as he won't be able to receive IV Morphine at [facility]. Family History: Unchanged from Admission Social History: Unchanged from Admission Past Medical History: Unchanged from Admission Objective Active Medications: Acetaminophen (Tylenol Tab*) 650 mg PO Q4H PRN PRN Reason: FEVER/PAIN Last Admin: 08/29/17 13:58 Dose: 650 mg Hydrocodone Bitart/Acetaminophen ([place] 5-325 Tab*) 2 tab PO Q4H PRN PRN Reason: Moderate Pain Last Admin: 09/01/17 13:15 Dose: 2 tab Hydrocodone Bitart/Acetaminophen ([place] 5-325 Tab*) 1 tab PO Q4H PRN PRN Reason: Mild Pain Al Hydrox/Mg Hydrox/Simethicone (Maalox Plus*) 30 ml PO Q6H PRN PRN Reason: INDIGESTION Last Admin: 08/27/17 06:10 Dose: 30 ml Albuterol (Ventolin Hfa Inhaler*) 2 puff INH Q4H PRN PRN Reason: SOB/WHEEZING Albuterol/Ipratropium (Duoneb (Albuterol 2.5 Mg/Ipratropium 0.5 Mg)) 1 neb INH Q4H PRN PRN Reason: SOB/WHEEZING Aspirin (Aspirin Ec Low Dose*) 81 mg PO DAILY [facility] Last Admin: 09/01/17 08:45 Dose: 81 mg Atenolol (Tenormin Tab*) 25 mg PO DAILY [facility] Last Admin: 09/01/17 08:45 Dose: Not Given Device (Nicotine Mouth Piece*) 1 each INH .USE WITH NICOTROL PRN PRN Reason: CRAVING Docusate Sodium (Colace Cap*) 100 mg PO BID PRN PRN Reason: CONSTIPATION Last Admin: 08/28/17 07:27 Dose: 100 mg Duloxetine HCl (Cymbalta Cap*) 90 mg PO DAILY [facility] Last Admin: 09/01/17 08:44 Dose: 90 mg Gabapentin (Neurontin Cap(*)) 1,200 mg PO TID [facility] Last Admin: 09/01/17 13:15 Dose: 1,200 mg Heparin Sodium (Porcine) (Heparin Vial(*)) 5,000 units SUBCUT Q8HR [facility] Last Admin: 09/01/17 13:16 Dose: 5,000 units Lidocaine (Lidoderm 5% Patch*) 1 patch TRANSDERM DAILY [facility] Last Admin: 09/01/17 08:43 Dose: 1 patch Methocarbamol (Robaxin Tab*) 500 mg PO TID PRN PRN Reason: Muscle spasm Last Admin: 09/01/17 05:57 Dose: 500 mg Mometasone Furoate/Formoterol Fumar (Dulera 200/5 Mdi*) 1 puff INH BID [facility] Last Admin: 09/01/17 08:00 Dose: 1 puff Morphine Sulfate (Morphine Inj (Syringe)*) 4 mg IV Q2H PRN PRN Reason: SEVERE PAIN Last Admin: 09/01/17 11:00 Dose: 4 mg Morphine Sulfate (Ms Contin(*)) 15 mg PO Q12H [facility] Last Admin: 09/01/17 12:43 Dose: 15 mg Nicotine (Nicotine Inhaler*) 10 mg INH Q2H PRN PRN Reason: CRAVING Nicotine (Nicotine Patch 21 Mg/24 Hr*) 1 patch TRANSDERM DAILY@0800 [facility] Last Admin: 09/01/17 08:43 Dose: 1 patch Ondansetron HCl (Zofran Inj*) 4 mg IV Q4H PRN PRN Reason: NAUSEA/VOMITING Last Admin: 08/27/17 19:46 Dose: 4 mg Pharmacy Profile Note (Nicotine Patch Removal Note*) 1 note FOLLOW UP 2099 [facility] Last Admin: 08/31/17 20:25 Dose: Not Given Pharmacy Profile Note (Lidocaine Patch Remove*) 1 note N/A 2099 [facility] Last Admin: 08/31/17 20:24 Dose: 1 note Quetiapine Fumarate (Seroquel Tab*) 50 mg PO BEDTIME [facility] Last Admin: 08/31/17 20:25 Dose: 50 mg Senna (Senokot Tab*) 1 tab PO BID PRN PRN Reason: CONSTIPATION Last Admin: 08/27/17 19:45 Dose: 1 tab Vital Signs 09/01/17 09/01/17 09/01/17 05:58 07:25 07:47 Temperature 97.7 F Pulse Rate 63 Respiratory 19 19 20 Rate Blood Pressure 94/55 (mmHg) O2 Sat by Pulse 97 Oximetry Oxygen Devices in Use Now: None Appearance: Pleasant elderly male lying in bed in NAD. Eyes: No Scleral Icterus Ears/Nose/Mouth/Throat: Mucous Membranes Moist Neck: Trachea Midline Respiratory: Symmetrical Chest Expansion and Respiratory Effort, Clear to Auscultation Cardiovascular: RRR - Normal S1 and S2 Extremities: No Edema Neurological: Alert and Oriented x 3, NL Muscle Strength and Tone Result Diagrams: 09/01/17 06:06 09/01/17 06:06 Assess/Plan/Problems-Billing Assessment: Mr Juares is a 61 yo M with hx of CAD, COPD, tobacco abuse, depression who presented to ED after a fall vs syncope, found to have left greater trochanteric fracture. - Patient Problems (1) Fracture of greater trochanter of left femur Comment: - Appreciate Ortho input - non-operative management. - Continue WBAT and PT as tolerated. - Continue pain management - continue Robaxin, [place], and IV Morphine. Will add MS Strickland in hopes of discontinuing IV Morphine, as he won't be able to receive it in [place]. (2) Tachycardia Comment: - Secondary to dehydration, pain and rebound-tachycardia - resolved. - Continue Atenolol. (3) Fall Comment: - Fall vs syncope. No significant arrhythmias on Telemetry. - Echocardiogarm showed EF 55-60% with no wall motion abnormalities. (4) Passive suicidal ideations Comment: - Psych input appreciated - continue Duloxetine. (5) CAD (coronary artery disease) Comment: - Continue ASA and atenolol. (6) COPD (chronic obstructive pulmonary disease) Comment: - No evidence of exacerbation. - Continue bronchodilators. (7) DVT prophylaxis Comment: - SQ heparin. (8) DNR (do not resuscitate) Status and Disposition: Inpatient for management of great trochanter fracture, will need [facility].
[2017-09-01] MEDS: Docusate CAP* 100 MG PO PRN (20:57)
[2017-09-01] MEDS: QUEtiapine TAB* 25 MG PO SCH (20:57)
[2017-09-01] MEDS: Lidocaine Patch REMOVE* 1 NOTE MISC SCH (21:06)
[2017-09-01] MEDS: Nicotine Patch Removal NOTE FOLLOW UP SCH (21:07)
[2017-09-02] MEDS: Morphine TAB Extended Release (*) 15 MG TAB.ER PO SCH ×2 (03:44→12:17)
[2017-09-02] MEDS: Morphine INJ* 4 MG/ML 1 ML CARPUJECT IV PRN ×5 (03:44→21:34)
[2017-09-02] MEDS: Heparin VIAL(*) 5000 UNITS/ML VIAL (FIVE THOUSAND) SUBCUT SCH ×4 (03:45→21:02)
[2017-09-02] MEDS: HYDROcodone/ACETAMIN 5-325 MG* 1 TAB PO PRN ×3 (05:12→21:04)
[2017-09-02] MEDS: Atenolol TAB* 25 MG PO SCH (08:18)
[2017-09-02] MEDS: Gabapentin CAP(*) 400 MG PO SCH ×3 (08:21→21:01)
[2017-09-02] MEDS: DULoxetine DR CAP* 30 MG CAP.DR PO SCH (08:21)
[2017-09-02] MEDS: Nicotine PATCH 21 MG/24 HR* PATCH TRANSDERM SCH (08:22)
[2017-09-02] MEDS: Aspirin EC Low Dose* 81 MG TAB.EC PO SCH (08:22)
[2017-09-02] MEDS: Lidocaine PATCH 5%* 1 PATCH TRANSDERM SCH (08:22)
[2017-09-02] MEDS: Mometasone/Formoter 200/5 MDI INH SCH ×2 (08:35→21:11)
[2017-09-02] MEDS: Methocarbamol TAB* 500 MG PO PRN (12:16)
--- NOTE | 2017-09-02 12:57 | PN ---
Subjective Date of Service: 09/02/17 Interval History: HOSPITALIST PROGRESS NOTE Patient seen and examined at bedside. His pain is better controlled today. Was able to ambulate with walker, but had a difficult time transferring without assistance. Family History: Unchanged from Admission Social History: Unchanged from Admission Past Medical History: Unchanged from Admission Objective Active Medications: Acetaminophen (Tylenol Tab*) 650 mg PO Q4H PRN PRN Reason: FEVER/PAIN Last Admin: 08/29/17 13:58 Dose: 650 mg Hydrocodone Bitart/Acetaminophen ([place] 5-325 Tab*) 2 tab PO Q4H PRN PRN Reason: Moderate Pain Last Admin: 09/02/17 05:12 Dose: 2 tab Hydrocodone Bitart/Acetaminophen ([place] 5-325 Tab*) 1 tab PO Q4H PRN PRN Reason: Mild Pain Al Hydrox/Mg Hydrox/Simethicone (Maalox Plus*) 30 ml PO Q6H PRN PRN Reason: INDIGESTION Last Admin: 08/27/17 06:10 Dose: 30 ml Albuterol (Ventolin Hfa Inhaler*) 2 puff INH Q4H PRN PRN Reason: SOB/WHEEZING Albuterol/Ipratropium (Duoneb (Albuterol 2.5 Mg/Ipratropium 0.5 Mg)) 1 neb INH Q4H PRN PRN Reason: SOB/WHEEZING Aspirin (Aspirin Ec Low Dose*) 81 mg PO DAILY [facility] Last Admin: 09/02/17 08:22 Dose: 81 mg Atenolol (Tenormin Tab*) 25 mg PO DAILY [facility] Last Admin: 09/02/17 08:18 Dose: Not Given Device (Nicotine Mouth Piece*) 1 each INH .USE WITH NICOTROL PRN PRN Reason: CRAVING Docusate Sodium (Colace Cap*) 100 mg PO BID PRN PRN Reason: CONSTIPATION Last Admin: 09/01/17 20:57 Dose: 100 mg Duloxetine HCl (Cymbalta Cap*) 90 mg PO DAILY [facility] Last Admin: 09/02/17 08:21 Dose: 90 mg Gabapentin (Neurontin Cap(*)) 1,200 mg PO TID [facility] Last Admin: 09/02/17 08:21 Dose: 1,200 mg Heparin Sodium (Porcine) (Heparin Vial(*)) 5,000 units SUBCUT Q8HR [facility] Last Admin: 09/02/17 05:13 Dose: 5,000 units Lidocaine (Lidoderm 5% Patch*) 1 patch TRANSDERM DAILY [facility] Last Admin: 09/02/17 08:22 Dose: 1 patch Methocarbamol (Robaxin Tab*) 500 mg PO TID PRN PRN Reason: Muscle spasm Last Admin: 09/02/17 12:16 Dose: 500 mg Mometasone Furoate/Formoterol Fumar (Dulera 200/5 Mdi*) 1 puff INH BID [facility] Last Admin: 09/02/17 08:35 Dose: 1 puff Morphine Sulfate (Morphine Inj (Syringe)*) 4 mg IV Q2H PRN PRN Reason: SEVERE PAIN Last Admin: 09/02/17 08:27 Dose: 4 mg Morphine Sulfate (Ms Contin(*)) 15 mg PO Q12H [facility] Last Admin: 09/02/17 12:17 Dose: 15 mg Nicotine (Nicotine Inhaler*) 10 mg INH Q2H PRN PRN Reason: CRAVING Nicotine (Nicotine Patch 21 Mg/24 Hr*) 1 patch TRANSDERM DAILY@0800 [facility] Last Admin: 09/02/17 08:22 Dose: 1 patch Ondansetron HCl (Zofran Inj*) 4 mg IV Q4H PRN PRN Reason: NAUSEA/VOMITING Last Admin: 08/27/17 19:46 Dose: 4 mg Pharmacy Profile Note (Nicotine Patch Removal Note*) 1 note FOLLOW UP 2099 [facility] Last Admin: 09/01/17 21:07 Dose: Not Given Pharmacy Profile Note (Lidocaine Patch Remove*) 1 note N/A 2099 [facility] Last Admin: 09/01/17 21:06 Dose: 1 note Quetiapine Fumarate (Seroquel Tab*) 50 mg PO BEDTIME [facility] Last Admin: 09/01/17 20:57 Dose: 50 mg Senna (Senokot Tab*) 1 tab PO BID PRN PRN Reason: CONSTIPATION Last Admin: 08/27/17 19:45 Dose: 1 tab Vital Signs - 8 hr 09/02/17 09/02/17 09/02/17 07:36 08:00 08:21 Temperature 97.9 F Pulse Rate 68 Respiratory 16 16 16 Rate Blood Pressure 100/56 (mmHg) O2 Sat by Pulse 95 Oximetry Oxygen Devices in Use Now: None Appearance: Pleasant gentleman sitting up in a chair in NAD. Eyes: No Scleral Icterus Ears/Nose/Mouth/Throat: Mucous Membranes Moist Neck: Trachea Midline Respiratory: Symmetrical Chest Expansion and Respiratory Effort, Clear to Auscultation Cardiovascular: RRR - Normal S1 and S2 Neurological: Alert and Oriented x 3, NL Muscle Strength and Tone Result Diagrams: 09/01/17 06:06 09/01/17 06:06 Assess/Plan/Problems-Billing Assessment: Mr Juares is a 61 yo M with hx of CAD, COPD, tobacco abuse, depression who presented to ED after a fall vs syncope, found to have left greater trochanteric fracture. - Patient Problems (1) Fracture of greater trochanter of left femur Comment: - Appreciate Ortho input - non-operative management. - Continue WBAT and PT as tolerated. - Continue pain management - continue Robaxin, Nitro, and IV Morphine. Will add MS Strickland in hopes of discontinuing IV Morphine, as he won't be able to receive it in [facility]. - Although he's making progress, he's not safe for discharge home. - Stable for discharge, awaiting bed availability at [facility]. (2) Tachycardia Comment: - Secondary to dehydration, pain and rebound-tachycardia - resolved. - Continue Atenolol. (3) Fall Comment: - Fall vs syncope. No significant arrhythmias on Telemetry. - Echocardiogarm showed EF 55-60% with no wall motion abnormalities. (4) Passive suicidal ideations Comment: - Psych input appreciated - continue Duloxetine. (5) CAD (coronary artery disease) Comment: - Continue ASA and atenolol. (6) COPD (chronic obstructive pulmonary disease) Comment: - No evidence of exacerbation. - Continue bronchodilators. (7) DVT prophylaxis Comment: - SQ heparin. (8) DNR (do not resuscitate) Status and Disposition: Inpatient for management of great trochanter fracture, awaiting [facility] placement.
[2017-09-02] MEDS: Senna TAB PO PRN (14:14)
[2017-09-02] MEDS: Docusate CAP* 100 MG PO PRN (14:14)
[2017-09-02] MEDS: QUEtiapine TAB* 25 MG PO SCH (21:00)
[2017-09-02] MEDS: Lidocaine Patch REMOVE* 1 NOTE MISC SCH (21:19)
[2017-09-02] MEDS: Nicotine Patch Removal NOTE FOLLOW UP SCH (21:42)
[2017-09-03] MEDS: Morphine INJ* 4 MG/ML 1 ML CARPUJECT IV PRN ×4 (00:08→11:19)
[2017-09-03] MEDS: Morphine TAB Extended Release (*) 15 MG TAB.ER PO SCH ×2 (00:08→11:20)
[2017-09-03] MEDS: Heparin VIAL(*) 5000 UNITS/ML VIAL (FIVE THOUSAND) SUBCUT SCH ×2 (05:05→17:37)
[2017-09-03] MEDS: HYDROcodone/ACETAMIN 5-325 MG* 1 TAB PO PRN ×2 (06:09→10:21)
[2017-09-03] MEDS: Mometasone/Formoter 200/5 MDI INH SCH (07:58)
[2017-09-03 09:53] VITALS: BP 92/62
[2017-09-03] MEDS: Nicotine PATCH 21 MG/24 HR* PATCH TRANSDERM SCH (10:13)
[2017-09-03] MEDS: Lidocaine PATCH 5%* 1 PATCH TRANSDERM SCH (10:15)
[2017-09-03] MEDS: Gabapentin CAP(*) 400 MG PO SCH ×2 (10:18→17:37)
[2017-09-03] MEDS: Aspirin EC Low Dose* 81 MG TAB.EC PO SCH (10:22)
[2017-09-03] MEDS: DULoxetine DR CAP* 30 MG CAP.DR PO SCH (10:22)
[2017-09-03] MEDS: Atenolol TAB* 25 MG PO SCH (10:23)
--- NOTE | 2017-09-04 10:20 | DS ---
CC: Dr. Yonatan Barroso, at the [facility]. DISCHARGE SUMMARY: DATE OF ADMISSION: 08/26/17 DATE OF DISCHARGE: To swing status 09/03/17. DISCHARGE DIAGNOSES: 1. Fracture of the greater trochanter of the left femur. 2. Tachycardia secondary to dehydration and pain. 3. Status post fall. 4. Passive suicidal ideation. 5. Intractable pain. SECONDARY DIAGNOSES: 1. Coronary artery disease. 2. Chronic obstructive pulmonary disease. 3. Tobacco abuse. 4. Depression. MEDICATIONS AT THE TIME OF TRANSFER: 1. Acetaminophen 650 mg p.o. q. 4 hours p.r.n. pain or fever. 2. Maalox Plus 30 mL p.o. q. 6 hours p.r.n. indigestion. 3. Albuterol 2 puffs inhaled q. 4 hours p.r.n. shortness of breath and wheezing. 4. DuoNebs 1 neb inhaled q. 4 hours p.r.n. shortness of breath and wheezing. 5. Aspirin 81 mg p.o. daily. 6. Atenolol 25 mg p.o. daily. 7. Colace 100 mg p.o. b.i.d. as needed for constipation. 8. Duloxetine 90 mg p.o. daily. 9. Gabapentin 1200 p.o. t.i.d. 10. Heparin 5000 units subcutaneously q. 8 hours. 11. [place] 5/325 mg 1 tablet p.o. q. 4 hours p.r.n. mild pain, 2 tablets p.o. q. 4 hours p.r.n. moder ate to severe pain. 12. Lidocaine patch to left hip daily. 13. Methocarbamol 500 mg p.o. t.i.d. as needed for muscle spasms. 14. Dulera 2 puffs inhaled b.i.d. 15. MS Contin 15 mg p.o. q. 12 hours. 16. Morphine 4 mg IV q. 4 hours p.r.n. severe pain. 17. Nicotine inhaler 10 mg inhaled q. 2 hours p.r.n. cravings. 18. Nicotine patch 21 mg topical daily. 19. Seroquel 50 mg p.o. at bedtime. 20. Senna 1 tablet p.o. b.i.d. p.r.n. constipation. HOSPITAL COURSE: Mr. Juares is a 61-year-old male with past medical history as stated above that pr esented to the emergency room after a fall. The patient had gotten up to go to the bathroom, he felt lightheaded, and the next thing he knew he was on the floor laying on his left side. For more detai ls about his presentation I refer you to his history and physical. In the emergency room, the patien t had hip and pelvis x-ray that showed no acute bony findings and a pelvis CT that showed an isolated fracture of the left greater trochanter. The patient had severe pain and was admitted for pain [facility]. He was seen in consultation by orthopedist (Dr. Velarde) and the recommendation was just for medical management. That the fracture area is not part of the weightbearing portion of the femur, h e was allowed to be weightbearing on that extremity as tolerated and no surgery was indicated. He fel t that he should continue to work with PT and could followup in the office 10 days after to repeat x- ray to make sure that the fracture is still nondisplaced. The patient received multiple different pain medications until he was able to work with [employer]. On admission, there was suspicion for possible syncope, but he had no syncope or weakness on telemetr y. His echocardiogram showed ejection fraction 55% to 60% with no wall motion abnormalities. The patient is medically stable for discharge at this point and he is awaiting a bed at [facility] to continue his rehabilitation process. PHYSICAL EXAM: Vital Signs: Temperature 98.7, heart rate is 82, respiratory rate is 16, oxygen satu ration is 93% on room air, blood pressure 104/61. General: Patient is a pleasant gentleman sitting u p in a chair in no acute distress. CVS: Normal S1 and S2, regular rate and rhythm. Chest: Breath s ounds bilaterally decreased with no added sounds. Extremities: No edema. Neuro: He is alert and or iented x3. Able to move all 4 extremities. DIET: Regular diet. ACTIVITY: As tolerated. Weightbearing on the left lower extremity as tolerated. DISPOSITION: To swing status. Please keep in mind this is a summarized version of this patient's hos pital stay. If you need more information, please feel free to call me at [phone] or please obtai n the full medical records. TIME SPENT: Approximately 45 minutes was spent to complete this discharge. [id number]/[facility] #: [id number]
== END 2017-09-03 14:18 | disposition swing bed (61) | DRG 340 ==
LOC: ED 13:55 → MEDTELE 23:18 → MED 09-01 23:58
PROVIDERS: ADMIT Pediatrics; ATTEND Internal Medicine
DX: S72.115A Nondisplaced fracture of greater trochanter of left femur, initial encounter for closed fracture (principal); E46 Unspecified protein-calorie malnutrition; R45.851 Suicidal ideations; F33.0 Major depressive disorder, recurrent, mild; G62.9 Polyneuropathy, unspecified; Z68.1 Body mass index [BMI] 19.9 or less, adult; W18.30XA Fall on same level, unspecified, initial encounter; Y92.031 Bathroom in apartment as the place of occurrence of the external cause; R00.0 Tachycardia, unspecified; E86.0 Dehydration; M79.662 Pain in left lower leg; I25.10 Atherosclerotic heart disease of native coronary artery without angina pectoris; J44.9 Chronic obstructive pulmonary disease, unspecified; Z66 Do not resuscitate; F17.210 Nicotine dependence, cigarettes, uncomplicated; Z80.0 Family history of malignant neoplasm of digestive organs; Z95.5 Presence of coronary angioplasty implant and graft; I25.2 Old myocardial infarction
CPT/HCPCS: 36415; 72192; 80048; 80053; 81003; 82272; 84484; 85025; 85610; 87641; 93005; 93306; 94640; 94667; 94760; A9270-GY; J1644; J2270; J2405

== ENCOUNTER 2017-09-03 14:06 | Inpatient (IN) | payer OTHER ==
[2017-09-03] MEDS ORDERED: Acetaminophen TAB* 325 MG PO PRN (14:53)
[2017-09-03] MEDS ORDERED: Al Hydrox/Mg Hydrox/Simet LIQ* 30 ML UDC PO PRN (14:53)
[2017-09-03] MEDS ORDERED: Albuterol/Ipratropium NEB.SOL* Albuterol 2.5 MG/Ipratropium 0.5 MG 3 ML INH PRN (14:54)
[2017-09-03] MEDS ORDERED: Albuterol HFA INHALER* 8 gm MDI INH PRN (14:54)
[2017-09-03] MEDS ORDERED: Nicotine Inhaler* 10 MG AMP INH PRN (14:55)
[2017-09-03] MEDS ORDERED: Morphine INJ* 2 MG/ML 1 ML CARPUJECT IV PRN (15:02)
[2017-09-03] MEDS: Gabapentin CAP(*) 300 MG PO SCH ×2 (16:04→21:25)
[2017-09-03] MEDS: HYDROcodone/ACETAMIN 5-325 MG* 1 TAB PO PRN (16:05)
[2017-09-03] MEDS: Heparin VIAL(*) 5000 UNITS/ML VIAL (FIVE THOUSAND) SUBCUT SCH ×2 (16:06→21:28)
[2017-09-03] MEDS: Docusate CAP* 100 MG PO PRN (16:06)
[2017-09-03] MEDS: Morphine INJ* 4 MG/ML 1 ML CARPUJECT IV PRN (16:49)
[2017-09-03] MEDS: QUEtiapine TAB* 25 MG PO SCH (21:25)
[2017-09-03] MEDS: Morphine TAB Extended Release (*) 15 MG TAB.ER PO SCH (21:28)
[2017-09-03] MEDS: Mometasone/Formoter 200/5 MDI INH SCH (21:35)
[2017-09-04] MEDS: HYDROcodone/ACETAMIN 5-325 MG* 1 TAB PO PRN ×5 (00:10→20:14)
[2017-09-04] MEDS: Heparin VIAL(*) 5000 UNITS/ML VIAL (FIVE THOUSAND) SUBCUT SCH ×3 (06:02→21:33)
[2017-09-04] MEDS: Morphine INJ* 4 MG/ML 1 ML CARPUJECT IV PRN ×4 (09:17→21:32)
[2017-09-04] MEDS: Nicotine PATCH 21 MG/24 HR* PATCH TRANSDERM SCH (09:21)
[2017-09-04] MEDS: Lidocaine PATCH 5%* 1 PATCH TRANSDERM SCH (09:22)
[2017-09-04] MEDS: Gabapentin CAP(*) 300 MG PO SCH ×3 (09:22→20:12)
[2017-09-04] MEDS: DULoxetine DR CAP* 30 MG CAP.DR PO SCH (09:22)
[2017-09-04] MEDS: Morphine TAB Extended Release (*) 15 MG TAB.ER PO SCH ×2 (09:26→20:13)
[2017-09-04] MEDS: Aspirin EC Low Dose* 81 MG TAB.EC PO SCH (09:26)
[2017-09-04] MEDS: Mometasone/Formoter 200/5 MDI INH SCH ×2 (09:56→19:56)
[2017-09-04] MEDS: Atenolol TAB* 25 MG PO SCH (10:39)
[2017-09-04] MEDS ORDERED: Mouth Piece, Nicotine* 1 EACH CARTRIDGE ONE (11:31)
[2017-09-04] MEDS: Methocarbamol TAB* 500 MG PO PRN (15:31)
[2017-09-04] MEDS: QUEtiapine TAB* 25 MG PO SCH (20:12)
[2017-09-04] MEDS: Lidocaine Patch REMOVE* 1 NOTE MISC PATCH OFF SCH (20:18)
[2017-09-04] MEDS: Nicotine Patch Removal NOTE PATCH OFF SCH (21:10)
[2017-09-05] MEDS: HYDROcodone/ACETAMIN 5-325 MG* 1 TAB PO PRN ×6 (01:41→21:43)
[2017-09-05] MEDS: Heparin VIAL(*) 5000 UNITS/ML VIAL (FIVE THOUSAND) SUBCUT SCH ×3 (05:53→21:38)
[2017-09-05] MEDS: Morphine INJ* 4 MG/ML 1 ML CARPUJECT IV PRN ×4 (07:25→19:39)
[2017-09-05] MEDS: Nicotine PATCH 21 MG/24 HR* PATCH TRANSDERM SCH (07:26)
[2017-09-05] MEDS: Lidocaine PATCH 5%* 1 PATCH TRANSDERM SCH (07:33)
[2017-09-05] MEDS: Mometasone/Formoter 200/5 MDI INH SCH ×2 (08:37→20:32)
[2017-09-05] MEDS: Aspirin EC Low Dose* 81 MG TAB.EC PO SCH (08:56)
[2017-09-05] MEDS: Gabapentin CAP(*) 300 MG PO SCH ×3 (08:56→21:33)
[2017-09-05] MEDS: DULoxetine DR CAP* 30 MG CAP.DR PO SCH (08:56)
[2017-09-05] MEDS: Methocarbamol TAB* 500 MG PO PRN ×2 (08:57→13:08)
[2017-09-05] MEDS: Morphine TAB Extended Release (*) 15 MG TAB.ER PO SCH ×2 (08:57→21:34)
[2017-09-05] MEDS: Atenolol TAB* 25 MG PO SCH (09:00)
[2017-09-05] MEDS: Lidocaine Patch REMOVE* 1 NOTE MISC PATCH OFF SCH (21:34)
[2017-09-05] MEDS: QUEtiapine TAB* 25 MG PO SCH (21:34)
[2017-09-05] MEDS: Nicotine Patch Removal NOTE PATCH OFF SCH (21:35)
[2017-09-05] MEDS: Docusate CAP* 100 MG PO PRN (21:37)
[2017-09-05] MEDS: Senna TAB PO PRN (21:37)
[2017-09-06] MEDS: HYDROcodone/ACETAMIN 5-325 MG* 1 TAB PO PRN ×4 (02:05→22:04)
[2017-09-06] MEDS: Heparin VIAL(*) 5000 UNITS/ML VIAL (FIVE THOUSAND) SUBCUT SCH ×3 (07:14→22:04)
[2017-09-06] MEDS: DULoxetine DR CAP* 30 MG CAP.DR PO SCH (08:59)
[2017-09-06] MEDS: Aspirin EC Low Dose* 81 MG TAB.EC PO SCH (08:59)
[2017-09-06] MEDS: Atenolol TAB* 25 MG PO SCH (08:59)
[2017-09-06] MEDS: Morphine TAB Extended Release (*) 15 MG TAB.ER PO SCH ×2 (08:59→20:17)
[2017-09-06] MEDS: Docusate CAP* 100 MG PO PRN (09:00)
[2017-09-06] MEDS: Gabapentin CAP(*) 300 MG PO SCH ×3 (09:00→20:17)
[2017-09-06] MEDS: Mometasone/Formoter 200/5 MDI INH SCH ×2 (09:02→19:46)
[2017-09-06] MEDS: Morphine INJ* 4 MG/ML 1 ML CARPUJECT IV PRN ×2 (09:05→14:20)
[2017-09-06] MEDS: Lidocaine PATCH 5%* 1 PATCH TRANSDERM SCH (09:09)
[2017-09-06] MEDS: Nicotine PATCH 21 MG/24 HR* PATCH TRANSDERM SCH (09:10)
[2017-09-06] MEDS: QUEtiapine TAB* 25 MG PO SCH (20:17)
[2017-09-06] MEDS: Lidocaine Patch REMOVE* 1 NOTE MISC PATCH OFF SCH (20:21)
[2017-09-06] MEDS: Nicotine Patch Removal NOTE PATCH OFF SCH (20:21)
[2017-09-07] MEDS: HYDROcodone/ACETAMIN 5-325 MG* 1 TAB PO PRN ×4 (05:38→19:27)
[2017-09-07] MEDS: Heparin VIAL(*) 5000 UNITS/ML VIAL (FIVE THOUSAND) SUBCUT SCH ×3 (05:39→21:11)
[2017-09-07] MEDS: Nicotine PATCH 21 MG/24 HR* PATCH TRANSDERM SCH (08:08)
[2017-09-07] MEDS: Lidocaine PATCH 5%* 1 PATCH TRANSDERM SCH (08:08)
[2017-09-07] MEDS: Aspirin EC Low Dose* 81 MG TAB.EC PO SCH (08:09)
[2017-09-07] MEDS: DULoxetine DR CAP* 30 MG CAP.DR PO SCH (08:09)
[2017-09-07] MEDS: Gabapentin CAP(*) 300 MG PO SCH ×3 (08:09→21:10)
[2017-09-07] MEDS: Morphine TAB Extended Release (*) 15 MG TAB.ER PO SCH ×2 (08:10→21:09)
[2017-09-07] MEDS: Docusate CAP* 100 MG PO PRN ×2 (09:39→21:09)
[2017-09-07] MEDS: Senna TAB PO PRN ×2 (09:39→21:09)
[2017-09-07] MEDS: Mometasone/Formoter 200/5 MDI INH SCH ×2 (10:14→20:40)
[2017-09-07] MEDS: Morphine INJ* 4 MG/ML 1 ML CARPUJECT IV PRN ×2 (15:42→21:11)
[2017-09-07] MEDS: QUEtiapine TAB* 25 MG PO SCH (21:10)
[2017-09-07] MEDS: Lidocaine Patch REMOVE* 1 NOTE MISC PATCH OFF SCH (21:12)
[2017-09-07] MEDS: Nicotine Patch Removal NOTE PATCH OFF SCH (21:12)
[2017-09-08 04:05] VITALS: BP 81/46
[2017-09-08] MEDS: HYDROcodone/ACETAMIN 5-325 MG* 1 TAB PO PRN ×2 (05:47→10:45)
[2017-09-08] MEDS: Heparin VIAL(*) 5000 UNITS/ML VIAL (FIVE THOUSAND) SUBCUT SCH ×2 (05:47→14:47)
[2017-09-08] MEDS: Mometasone/Formoter 200/5 MDI INH SCH (08:50)
[2017-09-08] MEDS: Nicotine PATCH 21 MG/24 HR* PATCH TRANSDERM SCH (09:00)
[2017-09-08] MEDS: Morphine TAB Extended Release (*) 15 MG TAB.ER PO SCH (09:01)
[2017-09-08] MEDS: DULoxetine DR CAP* 30 MG CAP.DR PO SCH (09:01)
[2017-09-08] MEDS: Aspirin EC Low Dose* 81 MG TAB.EC PO SCH (09:01)
[2017-09-08] MEDS: Gabapentin CAP(*) 300 MG PO SCH ×2 (09:01→14:48)
[2017-09-08] MEDS: Lidocaine PATCH 5%* 1 PATCH TRANSDERM SCH (09:02)
[2017-09-08] MEDS ORDERED: Morphine INJ* 10 MG/ML 1 ML CARPUJECT IV PRN (14:04)
--- NOTE | 2017-09-08 14:12 | RAD ---
Indication: Follow-up LEFT femur greater trochanteric fracture. Comparison: August 26, 2017 CT. August 26, 2017 radiographs. Technique: AP pelvis, AP and lateral LEFT femur, and AP and crosstable lateral views of the LEFT knee. Report: Intratrochanteric fracture of the LEFT femur with varus angulation. Previous avulsion fracture of the greater trochanter noted without gross change. The femoral head remains located at the acetabulum. 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 Negative for pelvic fracture or joint diastases. No additional fracture of the femur. Normal articular alignment at the LEFT knee. Negative for joint effusion, fracture, or significant arthropathic change. Soft tissue swelling about the proximal thigh. IMPRESSION: New intratrochanteric fracture of the LEFT femur with varus angulation. Results discussed with Nurse Mccollum on 09/08/2017 2:07 PM EST
[2017-09-08] MEDS ORDERED: Morphine TAB Extended Release (*) 30 MG TAB.ER PO SCH (21:00)
--- NOTE | 2017-09-09 10:40 | DS ---
DISCHARGE SUMMARY: DATE OF ADMISSION TO SWING STATUS: 09/03/17 DATE OF DISCHARGE FROM SWING STATUS: 09/08/17 HOSPITAL COURSE: The patient is a 61-year-old male who was admitted initially on 08/26/17 after a fa ll, found to have a left greater trochanter fracture that did not require surgical management. The p atient was receiving pain medication and waiting for SNF placement for rehab, and for that reason, he was transferred to swing status while he waited for a bed. The patient continued to have persistent pain and was not making significant progress with physical t herapy. So for that reason, his x-ray was repeated and now it shows that he has a left intertrochant thao femur fracture that will require surgical repair. For that reason, the patient is being dischar ged from swing status and being readmitted to acute status. For more details, I refer you to his his tory and physical from the same date. [id number]/[facility] #: [id number]
== END 2017-09-08 15:36 | disposition short-term general hospital (02) | DRG 340 ==
LOC: MED 14:18
PROVIDERS: ADMIT Internal Medicine; ATTEND Internal Medicine
DX: S72.115A Nondisplaced fracture of greater trochanter of left femur, initial encounter for closed fracture (principal); F33.9 Major depressive disorder, recurrent, unspecified; W18.30XA Fall on same level, unspecified, initial encounter; Y92.039 Unspecified place in apartment as the place of occurrence of the external cause; R00.0 Tachycardia, unspecified; E86.0 Dehydration; I25.10 Atherosclerotic heart disease of native coronary artery without angina pectoris; J44.9 Chronic obstructive pulmonary disease, unspecified; F17.210 Nicotine dependence, cigarettes, uncomplicated
CPT/HCPCS: 72170; 94640; 94760; A9270-GY; J1644; J2270

== ENCOUNTER 2017-09-08 15:36 | Inpatient (IN) | payer OTHER ==
[2017-09-08] MEDS ORDERED: Acetaminophen TAB* 325 MG PO PRN (16:09)
[2017-09-08] MEDS ORDERED: Al Hydrox/Mg Hydrox/Simet LIQ* 30 ML UDC PO PRN (16:10)
[2017-09-08] MEDS ORDERED: Albuterol HFA INHALER* 8 gm MDI INH PRN (16:10)
[2017-09-08] MEDS ORDERED: Albuterol/Ipratropium NEB.SOL* Albuterol 2.5 MG/Ipratropium 0.5 MG 3 ML INH PRN (16:11)
[2017-09-08] MEDS ORDERED: Docusate CAP* 100 MG PO PRN (16:11)
[2017-09-08] MEDS ORDERED: HYDROcodone/ACETAMIN 5-325 MG* 1 TAB PO PRN (16:12)
[2017-09-08] MEDS ORDERED: Methocarbamol TAB* 500 MG PO PRN ×2 (16:13→17:15)
[2017-09-08] MEDS ORDERED: Nicotine Inhaler* 10 MG AMP INH PRN (16:15)
[2017-09-08] MEDS ORDERED: Senna TAB PO PRN (16:15)
[2017-09-08] MEDS: HYDROcodone/ACETAMIN 5-325 MG* 1 TAB PO PRN ×2 (16:38→20:42)
[2017-09-08] MEDS ORDERED: Mouth Piece, Nicotine* 1 EACH CARTRIDGE INH ONE (17:00)
[2017-09-08] MEDS ORDERED: Morphine TAB Extended Release (*) 30 MG TAB.ER PO SCH ×2 (18:00→21:00)
[2017-09-08] MEDS: Morphine TAB Extended Release (*) 15 MG TAB.ER PO SCH (18:12)
[2017-09-08] MEDS: Morphine INJ* 10 MG/ML 1 ML CARPUJECT IV PRN ×2 (19:22→23:27)
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
[2017-09-08] MEDS: QUEtiapine TAB* 25 MG PO SCH (20:42)
[2017-09-08] MEDS: Nicotine Patch Removal NOTE FOLLOW UP SCH (20:44)
[2017-09-08] MEDS: Mometasone/Formoter 200/5 MDI INH SCH (20:57)
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
[2017-09-09] MEDS: Morphine TAB Extended Release (*) 15 MG TAB.ER PO SCH ×3 (02:38→23:23)
[2017-09-09 06:46] LABS: Hematocrit 38 % (42-52); Hemoglobin 12.8 g/dl (14.0-18.0); Mean Corpuscular HGB Conc 33 g/dl (31-36); Mean Corpuscular Hemoglobin 30 pg (27-31); Mean Corpuscular Volume 90 fL (80-94); Mean Platelet Volume 8 um3 (7.4-10.4); Red Blood Count 4.27 10^6/ul (4.0-5.4); Red Cell Distribution Width 14 % (10.5-15)
[2017-09-09 07:09] LABS: BUN/Creatinine Ratio 30.3 (8-20); Calcium 9.5 mg/dL (8.6-10.3); EGFR African American 133.2 (>60); EGFR Non-African American 103.6 (>60); Potassium 4.2 mmol/L (3.5-5.0)
[2017-09-09] MEDS: Mometasone/Formoter 200/5 MDI INH SCH ×2 (08:17→20:04)
--- NOTE | 2017-09-09 09:16 | PN ---
Subjective Date of Service: 09/09/17 Interval History: HOSPITALIST PROGRESS NOTE Patient seen and examined at bedside. Pain is still uncontrolled, anxious about surgery. Family History: Unchanged from Admission Social History: Unchanged from Admission Past Medical History: Unchanged from Admission Objective Active Medications: Acetaminophen (Tylenol Tab*) 650 mg PO Q4H PRN PRN Reason: pain/fever Hydrocodone Bitart/Acetaminophen ([place] 5-325 Tab*) 1 tab PO Q4H PRN PRN Reason: Moderate Pain Hydrocodone Bitart/Acetaminophen ([place] 5-325 Tab*) 2 tab PO Q4H PRN PRN Reason: SEVERE PAIN Last Admin: 09/08/17 20:42 Dose: 2 tab Al Hydrox/Mg Hydrox/Simethicone (Maalox Plus*) 30 ml PO Q6H PRN PRN Reason: INDIGESTION Albuterol (Ventolin Hfa Inhaler*) 2 puff INH Q4H PRN PRN Reason: SOB/WHEEZING Albuterol/Ipratropium (Duoneb (Albuterol 2.5 Mg/Ipratropium 0.5 Mg)) 1 neb INH Q4H PRN PRN Reason: SOB/WHEEZING Aspirin (Aspirin Ec Low Dose*) 81 mg PO DAILY [facility] Docusate Sodium (Colace Cap*) 100 mg PO BID PRN PRN Reason: CONSTIPATION Duloxetine HCl (Cymbalta Cap*) 90 mg PO DAILY [facility] Sodium Chloride (Ns 0.9% 1000 Ml*) 1,000 mls @ 75 mls/hr IV PER RATE [facility] Methocarbamol (Robaxin Tab*) 750 mg PO Q6H PRN PRN Reason: Muscle spasms Mometasone Furoate/Formoterol Fumar (Dulera 200/5 Mdi*) 2 puff INH BID [facility] Last Admin: 09/09/17 08:17 Dose: 2 puff Morphine Sulfate (Morphine Inj (Syringe)*) 6 mg IV Q4H PRN PRN Reason: SEVERE PAIN Last Admin: 09/08/17 23:27 Dose: 6 mg Morphine Sulfate (Ms Contin(*)) 15 mg PO Q8H [facility] Last Admin: 09/09/17 02:38 Dose: Not Given Nicotine (Nicotine Inhaler*) 10 mg INH Q2H PRN PRN Reason: CRAVING Nicotine (Nicotine Patch 21 Mg/24 Hr*) 1 patch TRANSDERM DAILY@0800 [facility] Pharmacy Profile Note (Nicotine Patch Removal Note*) 1 note FOLLOW UP 2100 [facility] Last Admin: 09/08/17 20:44 Dose: Not Given Quetiapine Fumarate (Seroquel Tab*) 50 mg PO BEDTIME [facility] Last Admin: 09/08/17 20:42 Dose: 50 mg Senna (Senokot Tab*) 1 tab PO BID PRN PRN Reason: CONSTIPATION Vital Signs - 8 hr 09/09/17 11:47 Temperature 98.0 F Pulse Rate 65 Respiratory 16 Rate Blood Pressure 104/62 (mmHg) O2 Sat by Pulse 96 Oximetry Oxygen Devices in Use Now: None Appearance: Thin gentleman lying in bed in NAD. Eyes: No Scleral Icterus Ears/Nose/Mouth/Throat: Mucous Membranes Moist Neck: Trachea Midline Respiratory: Symmetrical Chest Expansion and Respiratory Effort, Clear to Auscultation Cardiovascular: RRR - Normal S1 and S2 Neurological: Alert and Oriented x 3, NL Muscle Strength and Tone Result Diagrams: 09/09/17 06:19 09/09/17 06:19 Assess/Plan/Problems-Billing Assessment: Mr Juares is a 61 yo M with hx of CAD, COPD, tobacco abuse, depression who presented to ED after a fall vs syncope, found to have left greater trochanteric fracture. Discharged to Swing status, but had persistent pain and failed to make progress with PT, so xray was repeated and showed Left intratrochanteric fracture with varus angulation. - Patient Problems (1) Closed left hip fracture Comment: - Management as per Ortho. - Patient is optimized for surgical procedure. - Pain management input appreciated - increase MS Contin to 15mg po TID, continue Butler and IV Morphine. (2) CAD (coronary artery disease) Comment: - Stable. - Continue ASA. (3) COPD (chronic obstructive pulmonary disease) Comment: - No evidence of exacerbation. - Continue bronchodilators. (4) DVT prophylaxis Comment: - SCDs. (5) DNR (do not resuscitate) Status and Disposition: Inpatient.
[2017-09-09] MEDS: NS 0.9% 1000 ML* 1,000 ML IV SCH ×2 (10:04→21:59)
[2017-09-09] MEDS: Nicotine PATCH 21 MG/24 HR* PATCH TRANSDERM SCH (10:04)
[2017-09-09] MEDS: DULoxetine DR CAP* 30 MG CAP.DR PO SCH (10:05)
[2017-09-09] MEDS: Aspirin EC Low Dose* 81 MG TAB.EC PO SCH ×2 (10:05→10:29)
[2017-09-09] MEDS: HYDROcodone/ACETAMIN 5-325 MG* 1 TAB PO PRN (10:06)
[2017-09-09] MEDS: Morphine INJ* 10 MG/ML 1 ML CARPUJECT IV PRN (12:48)
[2017-09-09] MEDS ORDERED: Bupivacaine 0.25% SDV* 30 ML ONE (16:43)
[2017-09-09] MEDS ORDERED: ceFAZolin 2 GM PREMIX (*) 2 GM/50 ML BAG IVPB ONE (17:04)
[2017-09-09] MEDS ORDERED: Morphine PF AMP (0.5MG/ML)* 5 MG/10 ML AMP ONE (17:24)
[2017-09-09] MEDS ORDERED: fentaNYL* 50 MCG/ML 2 ML VIAL (100 MCG VIAL) ONE (17:24)
[2017-09-09] MEDS ORDERED: Midazolam* 1 MG/ML 2 ML VIAL (2 MG) ONE ×2 (17:24→17:36)
[2017-09-09] MEDS ORDERED: KETAMINE HCL* 50 MG/ML 10 ML VIAL ONE (17:32)
[2017-09-09] MEDS ORDERED: Bupivacaine 0.5% SDV PF* 30 ML VIAL ONE (17:49)
[2017-09-09] MEDS ORDERED: Famotidine IV* 10 MG/ML 2 ML (20 mg) ONE (17:49)
[2017-09-09] MEDS ORDERED: diPHENhydraMINE IV* 50 MG/ML 1 ml VIAL (BENADRYL) ONE (17:49)
[2017-09-09] MEDS ORDERED: Propofol* 10 MG/ML 20 ML BTL IV PUSH ONE ×2 (17:49→17:56)
[2017-09-09] MEDS ORDERED: Dexamethasone IV* 4 MG/ML 1 ML (4 MG) ONE (17:57)
[2017-09-09] MEDS ORDERED: Ondansetron INJ* 2 MG/ML VIAL IV PRN (18:28)
[2017-09-09] MEDS ORDERED: DiMENhydriNATE IV* 50 MG/ML VIAL IV PUSH PRN ×2 (18:28→18:32)
[2017-09-09] MEDS ORDERED: fentaNYL* 50 MCG/ML 2 ML VIAL (100 MCG VIAL) IV PRN (18:28)
[2017-09-09] MEDS ORDERED: Levalbuterol 0.63MG/3ML NEB* UNIT OF USE INH PRN (18:28)
[2017-09-09] MEDS ORDERED: Acetaminophen TAB* 325 MG PO PRN (18:28)
[2017-09-09] MEDS ORDERED: diPHENhydraMINE IV* 50 MG/ML 1 ml VIAL (BENADRYL) IV PRN (18:32)
[2017-09-09] MEDS ORDERED: Naloxone* 0.4 MG/ML 1 ML VIAL IV PRN (18:32)
[2017-09-09] MEDS ORDERED: Nalbuphine* 20 MG/ML 1 ML VIAL IV PRN ×2 (18:32)
[2017-09-09] MEDS ORDERED: PROCHLORPERAZINE INJ 5 MG/ML 2 ML VIAL IV PRN (18:32)
[2017-09-09] MEDS ORDERED: HYDROcodone/ACETAMIN 5-325 MG* 1 TAB PO PRN (18:32)
[2017-09-09] MEDS: QUEtiapine TAB* 25 MG PO SCH (22:01)
[2017-09-09] MEDS: Acetaminophen TAB* 325 MG PO SCH ×2 (22:01→23:23)
[2017-09-09] MEDS: Nicotine Patch Removal NOTE FOLLOW UP SCH (23:23)
[2017-09-10] MEDS: Morphine TAB Extended Release (*) 15 MG TAB.ER PO SCH ×3 (01:28→16:44)
[2017-09-10] MEDS: Acetaminophen TAB* 325 MG PO SCH ×2 (02:49→08:33)
--- NOTE | 2017-09-10 04:22 | OP ---
DATE OF OPERATION: 09/09/17 - ROOM #340 DATE OF : 51 SURGEON: Shoaib Velarde MD CHAMPION OF [employer]AINABLE DES[employer]: JHOANA Zayas ANESTHESIOLOGIST: Dr. Corrales ANESTHESIA: Spinal sedation. PRE-OP DIAGNOSIS: Displaced left intertrochanteric fracture. POST-OP DIAGNOSIS: Displaced left intertrochanteric fracture. OPERATIVE PROCEDURE: ORIF, left hip fracture. INDICATIONS: Mr. Juares is a 61-year-old male who had fallen back on . He presented to the emergency room, unable to walk, but without a shortened rotated leg. X-rays were taken, which were read as normal and a CAT scan found a very mildly displaced greater trochanteric fracture. I had seen him the next day as he was unable to walk and was admitted, and I discussed with him that over the next few days, this should improve. It did not. He tried to work with physical therapy to weight bear and had significant difficulties with doing so. He went to the swing bed service and because of his inability to participate with PT, x-rays were taken again yesterday and these found a displaced intertrochanteric fracture. Even with looking back at the CAT scan and knowing where the fracture is now, I cannot identify a fracture line through the bone. I asked him if he had felt a snap or pop or anything had happened since his CAT scan and he reports that hip just hurt, but never had anything else happen to it. I discussed with him that this is something we can fix and that should improve his pain. Risks of surgery such as infection, scar formation, stiffness, DVT, pulmonary embolism, hardware failure, and the need for revision surgery were some of the risks discussed. He had wished to proceed. ESTIMATED BLOOD LOSS: 75 cc. COMPLICATIONS: None. HARDWARE: S[employer] DHS 135-degree 4-hole plate with locking screw. DESCRIPTION OF PROCEDURE: The patient was brought to the OR and spinal anesthesia was introduced. He was then positioned on the fracture table and traction was placed on the leg. Traction was adjusted and leg moved until his fracture had lined up perfectly; traction was locked into place. Left hip area was prepped and then draped. Incision was made laterally over the proximal femur, was carried down through the skin and subcutaneous tissues. Fascia was encountered and was sharply incised, and fascia over the muscle laterally was also sharply incised. Blunt dissection and a Mckeon were used to split the muscle right down to the lateral aspect of the femur. Scraping of muscle off the femur allowed for placement of 135-degree guide. Guide was adjusted until it appeared it would run nicely up the neck and into the head of the femur. Guidewire was run and adjusted until it was perfectly up the neck and into the head. Positioning was excellent on the lateral view as well. Portion of the tip of the screw came right to the subchondral bone and measured just a little bit over 90 mm in length. 85-mm screw was called for and a triple reamer was set at 85 mm. Triple reamer was run and screw was then placed. Nice bite was obtained and the head did not twist with getting that bite. Four-hole 135- degree side plate was then placed and in standard A/O fashion, holes were drilled, measured, and screws were placed. Traction was taken off the leg and the compression screw was then placed. Final C-arm pictures were then saved. Wound was irrigated using a bulb syringe and the fracture on the muscle was repaired using a running 0 Vicryl. Fascia was repaired using a running #1 Vicryl and the subcutaneous tissues were approximated with 2-0 Vicryl. Skin was closed using jayy. Sterile dressing was applied. The patient was then transferred to the hospital, was stable on transfer to the recovery room. [id number]/[facility] #: [id number] SRINIVAS
[2017-09-10 05:46] LABS: Hematocrit 37 % (42-52); Hemoglobin 12.1 g/dl (14.0-18.0); Mean Corpuscular HGB Conc 33 g/dl (31-36); Mean Corpuscular Hemoglobin 30 pg (27-31); Mean Corpuscular Volume 90 fL (80-94); Mean Platelet Volume 8 um3 (7.4-10.4); Red Blood Count 4.08 10^6/ul (4.0-5.4); Red Cell Distribution Width 14 % (10.5-15)
[2017-09-10 06:12] LABS: Calcium 9.2 mg/dL (8.6-10.3); EGFR African American 144.1 (>60); EGFR Non-African American 112.1 (>60); Potassium 4.6 mmol/L (3.5-5.0)
--- NOTE | 2017-09-10 07:12 | RAD ---
INDICATION: Traumatic left hip fracture operative reduction internal fixation. COMPARISON: Comparison is made with a prior x-ray study of the pelvis from September 08, 2017. TECHNIQUE: 32.9 seconds of intermitted fluoroscopic were provided and 4 spot films of the left hip were obtained in the AP and lateral projections. FINDINGS: The films demonstrate operative reduction internal fixation of an intertrochanteric fracture of the proximal left femur. There is a femoral head nail and sliding sideplate transfixed with multiple screws. The bones are in normal alignment. IMPRESSION: INTRAOPERATIVE CONTROL FILMS. CPT II Codes: 6045F
--- NOTE | 2017-09-10 07:35 | PN ---
Progress Note - Progress Note Date of Service: 09/10/17 SOAP: Subjective: Pt underwent an ORIF of the left hip yesterday evening. Reports better night sleep and hip not that bad. Objective: VSS- afebrile. Labs: H/H: 12.1/37, WBC 14, Chemistry benign Left hip: dressing clean/dry/intact, can roll leg some with minimal discomfort. Assessment: [S/P ORIF left IT hip fx Plan: cont -OOB/PT, 50% WB left leg -dvt prophylaxis
[2017-09-10] MEDS: Mometasone/Formoter 200/5 MDI INH SCH ×2 (08:17→20:17)
[2017-09-10] MEDS: Nicotine PATCH 21 MG/24 HR* PATCH TRANSDERM SCH (08:38)
[2017-09-10] MEDS: Aspirin EC Low Dose* 81 MG TAB.EC PO SCH (08:38)
[2017-09-10] MEDS: DULoxetine DR CAP* 30 MG CAP.DR PO SCH (08:38)
[2017-09-10] MEDS: HYDROcodone/ACETAMIN 5-325 MG* 1 TAB PO PRN ×3 (09:58→21:29)
[2017-09-10] MEDS: Morphine INJ* 10 MG/ML 1 ML CARPUJECT IV PRN ×3 (13:12→23:47)
--- NOTE | 2017-09-10 13:29 | PN ---
Subjective Date of Service: 09/10/17 Interval History: HOSPITALIST PROGRESS NOTE Patient seen and examined at bedside. His pain is less intense today, but he has not gotten out of bed yet. Denies chest pain, palpitations, or dyspnea. Family History: Unchanged from Admission Social History: Unchanged from Admission Past Medical History: Unchanged from Admission Objective Active Medications: Acetaminophen (Tylenol Tab*) 650 mg PO Q4H PRN PRN Reason: pain/fever Hydrocodone Bitart/Acetaminophen ([place] 5-325 Tab*) 1 tab PO Q4H PRN PRN Reason: Moderate Pain Last Admin: 09/10/17 02:46 Dose: 1 tab Hydrocodone Bitart/Acetaminophen ([place] 5-325 Tab*) 2 tab PO Q4H PRN PRN Reason: SEVERE PAIN Last Admin: 09/10/17 09:58 Dose: 2 tab Al Hydrox/Mg Hydrox/Simethicone (Maalox Plus*) 30 ml PO Q6H PRN PRN Reason: INDIGESTION Albuterol (Ventolin Hfa Inhaler*) 2 puff INH Q4H PRN PRN Reason: SOB/WHEEZING Albuterol/Ipratropium (Duoneb (Albuterol 2.5 Mg/Ipratropium 0.5 Mg)) 1 neb INH Q4H PRN PRN Reason: SOB/WHEEZING Aspirin (Aspirin Ec Low Dose*) 81 mg PO DAILY [facility] Last Admin: 09/10/17 08:38 Dose: 81 mg Docusate Sodium (Colace Cap*) 100 mg PO BID PRN PRN Reason: CONSTIPATION Duloxetine HCl (Cymbalta Cap*) 90 mg PO DAILY [facility] Last Admin: 09/10/17 08:38 Dose: 90 mg Heparin Sodium (Porcine) (Heparin Vial(*)) 5,000 units SUBCUT Q12H [facility] Sodium Chloride (Ns 0.9% 1000 Ml*) 1,000 mls @ 75 mls/hr IV PER RATE [facility] Last Admin: 09/09/17 21:59 Dose: 75 mls/hr Levalbuterol HCl (Xopenex 0.63mg/3ml Neb*) 0.63 mg INH ONCE PRN PRN Reason: SOB/WHEEZING Stop: 09/10/17 18:27 Methocarbamol (Robaxin Tab*) 750 mg PO Q6H PRN PRN Reason: Muscle spasms Mometasone Furoate/Formoterol Fumar (Dulera 200/5 Mdi*) 2 puff INH BID [facility] Last Admin: 09/10/17 08:17 Dose: 2 puff Morphine Sulfate (Morphine Inj (Syringe)*) 6 mg IV Q4H PRN PRN Reason: SEVERE PAIN Last Admin: 09/10/17 13:12 Dose: 6 mg Morphine Sulfate (Ms Contin(*)) 15 mg PO Q8H [facility] Last Admin: 09/10/17 09:58 Dose: 15 mg Nicotine (Nicotine Inhaler*) 10 mg INH Q2H PRN PRN Reason: CRAVING Nicotine (Nicotine Patch 21 Mg/24 Hr*) 1 patch TRANSDERM DAILY@0800 [facility] Last Admin: 09/10/17 08:38 Dose: 1 patch Pharmacy Profile Note (Nicotine Patch Removal Note*) 1 note FOLLOW UP 2100 [facility] Last Admin: 09/09/17 23:23 Dose: Not Given Quetiapine Fumarate (Seroquel Tab*) 50 mg PO BEDTIME [facility] Last Admin: 09/09/17 22:01 Dose: 50 mg Senna (Senokot Tab*) 1 tab PO BID PRN PRN Reason: CONSTIPATION Vital Signs - 8 hr 09/10/17 09/10/17 09/10/17 05:55 07:32 08:00 Temperature 98.2 F Pulse Rate 66 Respiratory 18 18 16 Rate Blood Pressure 97/57 (mmHg) O2 Sat by Pulse 98 Oximetry Oxygen Devices in Use Now: None Appearance: Pleasant gentleman lying in bed in NAD. Eyes: No Scleral Icterus Ears/Nose/Mouth/Throat: Mucous Membranes Moist Neck: Trachea Midline Respiratory: Symmetrical Chest Expansion and Respiratory Effort, - - BS+ bilaterally decreased with no added sounds Cardiovascular: RRR - Normal S1 and S2 Extremities: No Edema Neurological: Alert and Oriented x 3, NL Muscle Strength and Tone Result Diagrams: 09/10/17 04:57 09/10/17 04:57 Assess/Plan/Problems-Billing Assessment: Mr Juares is a 61 yo M with hx of CAD, COPD, tobacco abuse, depression who presented to ED after a fall vs syncope, found to have left greater trochanteric fracture. Discharged to Swing status, but had persistent pain and failed to make progress with PT, so xray was repeated and showed Left intratrochanteric fracture with varus angulation. - Patient Problems (1) Closed left hip fracture Comment: - Management as per Ortho. - S/p ORIF 09/09/17. - Continue pain management. - PT as tolerated. (2) CAD (coronary artery disease) Comment: - Stable. - Continue ASA. (3) COPD (chronic obstructive pulmonary disease) Comment: - Stable. - Continue bronchodilators. (4) DVT prophylaxis Comment: - SQ heparin. (5) DNR (do not resuscitate) Status and Disposition: Inpatient.
[2017-09-10] MEDS: Artificial Tears* 15 ML BTL BOTH EYES PRN ×3 (18:25→23:47)
[2017-09-10] MEDS: QUEtiapine TAB* 25 MG PO SCH (21:28)
[2017-09-10] MEDS: Heparin VIAL(*) 5000 UNITS/ML VIAL (FIVE THOUSAND) SUBCUT SCH (21:28)
[2017-09-10] MEDS: Nicotine Patch Removal NOTE FOLLOW UP SCH (21:45)
[2017-09-11] MEDS: Morphine TAB Extended Release (*) 15 MG TAB.ER PO SCH ×2 (01:50→10:12)
[2017-09-11] MEDS: Artificial Tears* 15 ML BTL BOTH EYES PRN (01:51)
[2017-09-11] MEDS: HYDROcodone/ACETAMIN 5-325 MG* 1 TAB PO PRN ×2 (05:37→09:58)
[2017-09-11 07:32] VITALS: BP 101/61
[2017-09-11] MEDS: Heparin VIAL(*) 5000 UNITS/ML VIAL (FIVE THOUSAND) SUBCUT SCH (08:09)
--- NOTE | 2017-09-11 08:32 | PN ---
Subjective Date of Service: 09/11/17 Interval History: HOSPITALIST PROGRESS NOTE Patient seen and examined at bedside. Family History: Unchanged from Admission Social History: Unchanged from Admission Past Medical History: Unchanged from Admission Objective Active Medications: Acetaminophen (Tylenol Tab*) 650 mg PO Q4H PRN PRN Reason: pain/fever Hydrocodone Bitart/Acetaminophen ([place] 5-325 Tab*) 1 tab PO Q4H PRN PRN Reason: Moderate Pain Last Admin: 09/10/17 02:46 Dose: 1 tab Hydrocodone Bitart/Acetaminophen ([place] 5-325 Tab*) 2 tab PO Q4H PRN PRN Reason: SEVERE PAIN Last Admin: 09/11/17 05:37 Dose: 2 tab Al Hydrox/Mg Hydrox/Simethicone (Maalox Plus*) 30 ml PO Q6H PRN PRN Reason: INDIGESTION Albuterol (Ventolin Hfa Inhaler*) 2 puff INH Q4H PRN PRN Reason: SOB/WHEEZING Albuterol/Ipratropium (Duoneb (Albuterol 2.5 Mg/Ipratropium 0.5 Mg)) 1 neb INH Q4H PRN PRN Reason: SOB/WHEEZING Aspirin (Aspirin Ec Low Dose*) 81 mg PO DAILY [facility] Last Admin: 09/10/17 08:38 Dose: 81 mg Docusate Sodium (Colace Cap*) 100 mg PO BID PRN PRN Reason: CONSTIPATION Last Admin: 09/10/17 21:30 Dose: 100 mg Duloxetine HCl (Cymbalta Cap*) 90 mg PO DAILY [facility] Last Admin: 09/10/17 08:38 Dose: 90 mg Heparin Sodium (Porcine) (Heparin Vial(*)) 5,000 units SUBCUT Q12H [facility] Last Admin: 09/11/17 08:09 Dose: 5,000 units Methocarbamol (Robaxin Tab*) 750 mg PO Q6H PRN PRN Reason: Muscle spasms Last Admin: 09/10/17 21:32 Dose: 750 mg Mometasone Furoate/Formoterol Fumar (Dulera 200/5 Mdi*) 2 puff INH BID [facility] Last Admin: 09/10/17 20:17 Dose: 2 puff Morphine Sulfate (Morphine Inj (Syringe)*) 6 mg IV Q4H PRN PRN Reason: SEVERE PAIN Last Admin: 09/10/17 23:47 Dose: 6 mg Morphine Sulfate (Ms Contin(*)) 15 mg PO Q8H [facility] Last Admin: 09/11/17 01:50 Dose: 15 mg Nicotine (Nicotine Inhaler*) 10 mg INH Q2H PRN PRN Reason: CRAVING Nicotine (Nicotine Patch 21 Mg/24 Hr*) 1 patch TRANSDERM DAILY@0800 [facility] Last Admin: 09/10/17 08:38 Dose: 1 patch Pharmacy Profile Note (Nicotine Patch Removal Note*) 1 note FOLLOW UP 2100 [facility] Last Admin: 09/10/17 21:45 Dose: Not Given Polyvinyl Alcohol (Polyvinyl Alcohol 1.4% Opth*) 1 drop BOTH EYES Q2H PRN PRN Reason: DRYNESS Last Admin: 09/11/17 01:51 Dose: 1 drop Quetiapine Fumarate (Seroquel Tab*) 50 mg PO BEDTIME [facility] Last Admin: 09/10/17 21:28 Dose: 50 mg Senna (Senokot Tab*) 1 tab PO BID PRN PRN Reason: CONSTIPATION Vital Signs - 8 hr 09/11/17 09/11/17 09/11/17 00:51 01:50 03:26 Temperature 98.4 F Pulse Rate 84 Respiratory 16 16 18 Rate Blood Pressure 99/56 (mmHg) O2 Sat by Pulse 95 Oximetry 09/11/17 09/11/17 09/11/17 04:19 05:37 07:26 Temperature 97.0 F Pulse Rate 76 Respiratory 16 14 16 Rate Blood Pressure 101/61 (mmHg) O2 Sat by Pulse 93 Oximetry 09/11/17 08:09 Temperature Pulse Rate Respiratory 14 Rate Blood Pressure (mmHg) O2 Sat by Pulse Oximetry Oxygen Devices in Use Now: None Result Diagrams: 09/10/17 04:57 09/10/17 04:57 Assess/Plan/Problems-Billing Assessment: Mr Juares is a 61 yo M with hx of CAD, COPD, tobacco abuse, depression who presented to ED after a fall vs syncope, found to have left greater trochanteric fracture. Discharged to Swing status, but had persistent pain and failed to make progress with PT, so xray was repeated and showed Left intratrochanteric fracture with varus angulation. - Patient Problems (1) Closed left hip fracture Comment: - Management as per Ortho. - S/p ORIF 09/09/17. - Continue pain management. - PT as tolerated. (2) CAD (coronary artery disease) Comment: - Stable. - Continue ASA. (3) COPD (chronic obstructive pulmonary disease) Comment: - Stable. - Continue bronchodilators. (4) DVT prophylaxis Comment: - SQ heparin. (5) DNR (do not resuscitate) Status and Disposition: Inpatient.
[2017-09-11] MEDS: Nicotine PATCH 21 MG/24 HR* PATCH TRANSDERM SCH (08:54)
[2017-09-11] MEDS: Aspirin EC Low Dose* 81 MG TAB.EC PO SCH (08:55)
[2017-09-11] MEDS: DULoxetine DR CAP* 30 MG CAP.DR PO SCH (08:56)
[2017-09-11] MEDS: Mometasone/Formoter 200/5 MDI INH SCH (09:02)
--- NOTE | 2017-09-11 09:53 | PN ---
Progress Note - Progress Note Date of Service: 09/11/17 SOAP: Subjective: []Patient seen at bedside. He is feeling well today but confirms pain of operative site. Denies chest pain, shortness of breath, dizziness, nausea. Objective: [] Vital Signs Temp 97.0 F 09/11/17 07:26 Pulse 76 09/11/17 07:26 Resp 14 09/11/17 08:09 BP 101/61 09/11/17 07:26 Pulse Ox 93 09/11/17 07:26 Intake & Output 09/10/17 09/11/17 09/11/17 18:59 06:59 18:59 Intake Total 450 890 Output Total 975 1450 Balance -525 -560 Intake: Oral 450 890 Output: Urine 975 1450 Other: # Bowel Movements 0 0 Laboratory Last Values WBC 14.0 10^3/ul (3.5-10.8) H 09/10/17 04:57 RBC 4.08 10^6/ul (4.0-5.4) 09/10/17 04:57 Hgb 12.1 g/dl (14.0-18.0) L 09/10/17 04:57 Hct 37 % (42-52) L 09/10/17 04:57 MCV 90 fL (80-94) 09/10/17 04:57 MCH 30 pg (27-31) 09/10/17 04:57 MCHC 33 g/dl (31-36) 09/10/17 04:57 RDW 14 % (10.5-15) 09/10/17 04:57 Plt Count 283 10^3/ul (150-450) 09/10/17 04:57 MPV 8 um3 (7.4-10.4) 09/10/17 04:57 Neut % (Auto) 78.2 % (38-83) 09/10/17 04:57 Lymph % (Auto) 13.9 % (25-47) L 09/10/17 04:57 Hunt % (Auto) 7.5 % (1-9) 09/10/17 04:57 Eos % (Auto) 0.1 % (0-6) 09/10/17 04:57 Baso % (Auto) 0.3 % (0-2) 09/10/17 04:57 Absolute Neuts (auto) 10.9 10^3/ul (1.5-7.7) H 09/10/17 04:57 Absolute Lymphs (auto) 1.9 10^3/ul (1.0-4.8) 09/10/17 04:57 Absolute Monos (auto) 1.0 10^3/ul (0-0.8) H 09/10/17 04:57 Absolute Eos (auto) 0 10^3/ul (0-0.6) 09/10/17 04:57 Absolute Basos (auto) 0 10^3/ul (0-0.2) 09/10/17 04:57 Absolute Nucleated RBC 0 10^3/ul 09/10/17 04:57 Nucleated RBC % 0 09/10/17 04:57 INR (Anticoag Therapy) 0.98 (0.77-1.02) 09/09/17 10:43 APTT 31.8 seconds (26.0-36.3) 09/09/17 10:43 Sodium 136 mmol/L (133-145) 09/10/17 04:57 Potassium 4.6 mmol/L (3.5-5.0) 09/10/17 04:57 Chloride 104 mmol/L (101-111) 09/10/17 04:57 Carbon Dioxide 25 mmol/L (22-32) 09/10/17 04:57 Anion Gap 7 mmol/L (2-11) 09/10/17 04:57 BUN 22 mg/dL (6-24) 09/10/17 04:57 Creatinine 0.71 mg/dL (0.67-1.17) 09/10/17 04:57 Est GFR ( Amer) 144.1 (>60) 09/10/17 04:57 Est GFR (Non-Af Amer) 112.1 (>60) 09/10/17 04:57 BUN/Creatinine Ratio 31.0 (8-20) H 09/10/17 04:57 Glucose 99 mg/dL (70-100) 09/10/17 04:57 Calcium 9.2 mg/dL (8.6-10.3) 09/10/17 04:57 General: Patient is well appearing, NAD. LLE: Dressing changed, incision CDI. BL LE: calves supple and nontender without erythema, edema or palpable cords. DF /PF intact. Sensation intact distally. DP/PT pulses 2+. Assessment: [] left greater trochanteric fracture. Discharged to Swing status, but had persistent pain and failed to make progress with PT, so xray was repeated and showed Left intratrochanteric fracture with varus angulation with ORIF 09/09/17 Plan: []50% WB LLE PMRU today Heparin had been listed to restart after surgery, not seen in med list. DVT prophylaxis needs to be evaluated today
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
== END 2017-09-11 10:45 | DRG 308 ==
LOC: MED 15:36 → SSU 09-09 20:40
PROVIDERS: ADMIT Internal Medicine; ATTEND Internal Medicine
PROC: 0QS734Z Reposition Left Upper Femur with Internal Fixation Device, Percutaneous Approach (ICD-10-PCS; principal; 2017-09-09 17:00)
DX: S72.142A Displaced intertrochanteric fracture of left femur, initial encounter for closed fracture (principal); G62.9 Polyneuropathy, unspecified; W18.39XA Other fall on same level, initial encounter; Y92.039 Unspecified place in apartment as the place of occurrence of the external cause; I25.10 Atherosclerotic heart disease of native coronary artery without angina pectoris; F17.210 Nicotine dependence, cigarettes, uncomplicated; J44.9 Chronic obstructive pulmonary disease, unspecified; B19.20 Unspecified viral hepatitis C without hepatic coma; F32.9 Major depressive disorder, single episode, unspecified; Z66 Do not resuscitate; F10.21 Alcohol dependence, in remission; I25.2 Old myocardial infarction; Z98.61 Coronary angioplasty status; Z79.1 Long term (current) use of non-steroidal anti-inflammatories (NSAID); Z79.82 Long term (current) use of aspirin; Z79.899 Other long term (current) drug therapy; Z80.0 Family history of malignant neoplasm of digestive organs
CPT/HCPCS: 36415; 76000; 80048; 85025; 85610; 85730; 94640; 99406; A9270-GY; C1713; C1776; J0690; J1100; J1200; J1644; J2250; J2270; J2704; J3010

== ENCOUNTER 2017-09-11 08:59 | Inpatient (IN) | payer OTHER ==
[2017-09-11] MEDS ORDERED: Magnesium Hydroxide LIQ* 30 ML UDC PO PRN (12:46)
[2017-09-11] MEDS ORDERED: Bisacodyl SUPP* 10 MG SUPP PR PRN (12:46)
[2017-09-11] MEDS ORDERED: Senna TAB PO PRN (12:46)
[2017-09-11] MEDS ORDERED: Acetaminophen TAB* 325 MG PO PRN (12:46)
[2017-09-11] MEDS ORDERED: HYDROcodone/ACETAMIN 5-325 MG* 1 TAB PO PRN (12:54)
[2017-09-11] MEDS ORDERED: Nicotine Inhaler* 10 MG AMP INH PRN (12:57)
[2017-09-11] MEDS ORDERED: Mouth Piece, Nicotine* 1 EACH CARTRIDGE INH ONE (13:00)
[2017-09-11] MEDS: Morphine TAB Extended Release (*) 15 MG TAB.ER PO SCH ×2 (13:09→20:58)
[2017-09-11] MEDS: HYDROcodone/ACETAMIN 5-325 MG* 1 TAB PO PRN ×2 (13:09→18:16)
[2017-09-11] MEDS: Artificial Tears* 15 ML BTL BOTH EYES PRN (18:23)
--- NOTE | 2017-09-11 20:04 | HP ---
ADMISSION HISTORY AND PHYSICAL: DATE OF ADMISSION: 09/11/17 REASON FOR ADMISSION: Left hip fracture. HISTORY OF ILLNESS: Franco Juares is a 61-year-old white male. He has a medical history significant for alcoholism, but he has been sober for 6 years. He has a history of COPD as well, but he continues to smoke 2 packs a day. The patient was in his own bathroom on 08/26/17 when he fell. He had lot of pain in his left leg after he fell. He was having trouble walking, so he called an ambulance. He came to the emergency room at [facility]. He was found to have a fracture of the greater trochanter of his left hip. He was seen by Orthopedics who felt that this fracture was in a part of the bone that was nonweightbearing, so that he would be able to ambulate. He was told to weight bear as tolerated and ambulate with crutches. He had a lot of difficulty with pain control as he tried to walk around on his leg. Orthopedics felt that he may need followup x-rays in 7 to 10 days. The patient had difficulty ambulating on 09/07/17. A new x-ray was done and a CAT scan showing intertrochanteric fracture of his left hip. He was taken to the operating room by Dr. Velarde on 09/09/17. He underwent a open reduction and internal fixation of the left hip fracture. Postoperatively, his course was relatively benign. He is now being admitted for inpatient rehab so that he may return to independent living. PAST MEDICAL HISTORY: Significant for COPD, as mentioned, he continues to smoke. He has had history of coronary artery disease, had an CT in 2007, underwent percutaneous coronary intervention. He has a history of hepatitis C, depression, peripheral neuropathy, and alcoholism. CURRENT MEDICATIONS: Include: 1. MS Contin as well as Ch[place]rant for pain relief. 2. He is on aspirin 81 mg daily. 3. Dulera inhaler. 4. Nicotine patch and nicotine inhaler. 5. Seroquel 50 mg at bedtime. ALLERGIES: The patient has no known drug allergies. SOCIAL HISTORY: He lives by himself. He has very little family in the area. He lives in a 1-story apartment in [place]. There is a half step to enter. He is a 6-jfla-j-day smoker, as mentioned he has been sober for 6 years. REVIEW OF SYSTEMS: The patient reports no shortness of breath or chest pain. PHYSICAL EXAMINATION VITAL SIGNS: The patient's temperature is 97.9, blood pressure is 96/51, pulse 75, and respirations 18. HEENT: His extraocular movements, tongue is midline. NECK: Supple. LUNGS: Sounded mostly clear with scattered wheezes. HEART: Sounds were regular, S1 and S2 are audible. ABDOMEN: Soft and nontender. EXTREMITIES: His left hip had a wound which was clean and dry. Peripheral pulses were intact. NEUROLOGIC: He was awake, alert, oriented. Muscle strength about 5/5 except left hip which is 3/5 secondary to pain. FUNCTIONAL EXAM: He transfers with 50% weightbearing with min assist. ASSESSMENT: Left hip fracture. PLAN: Integrate him into a comprehensive and therapeutic rehab program on the following goals: 1. Physical Therapy will work with the patient. They are going to work on functional transfer training, ambulation training with a walker. 2. Occupational Therapy will see the patient, work on his activities of daily living including toileting and toilet transfers. 3. Heparin for DVT prophylaxis. 4. Adequate analgesia. 5. His bowels will be regulated. 6. director of residential services will be closely involved to make sure that any services and equipment that the patient requires are in place prior to discharge. He may need Meals On Wheels to go home with he says. He may have fallen on the bathroom floor because he passed out from hunger. 7. For nicotine addiction, we will continue a nicotine patch. 8. For COPD, we will continue the Dulera inhaler. Consider a trial of Spiriva. 9. Advance directives: The patient has a MOLST form, but now he states he wants to be full code. ESTIMATED LENGTH OF STAY: 10 days. [id number] #: [id number] SRINIVAS
[2017-09-11] MEDS: Mometasone/Formoter 200/5 MDI INH SCH (20:56)
[2017-09-11] MEDS: QUEtiapine TAB* 25 MG PO SCH (20:58)
[2017-09-11] MEDS: Docusate CAP* 100 MG PO SCH (20:59)
[2017-09-11] MEDS: Nicotine Patch Removal NOTE FOLLOW UP SCH (21:09)
[2017-09-11] MEDS: Heparin VIAL(*) 5000 UNITS/ML VIAL (FIVE THOUSAND) SUBCUT SCH (21:40)
[2017-09-12] MEDS: HYDROcodone/ACETAMIN 5-325 MG* 1 TAB PO PRN ×4 (02:36→19:12)
[2017-09-12] MEDS: Heparin VIAL(*) 5000 UNITS/ML VIAL (FIVE THOUSAND) SUBCUT SCH ×3 (05:32→21:05)
[2017-09-12] MEDS: Morphine TAB Extended Release (*) 15 MG TAB.ER PO SCH ×3 (05:35→20:59)
[2017-09-12 06:57] LABS: Hematocrit 36 % (42-52); Hemoglobin 12.2 g/dl (14.0-18.0); Mean Corpuscular HGB Conc 34 g/dl (31-36); Mean Corpuscular Hemoglobin 30 pg (27-31); Mean Corpuscular Volume 90 fL (80-94); Mean Platelet Volume 8 um3 (7.4-10.4); Red Blood Count 4.04 10^6/ul (4.0-5.4); Red Cell Distribution Width 14 % (10.5-15); White Blood Count 7.3 10^3/ul (3.5-10.8)
[2017-09-12 07:24] LABS: Albumin 3.5 g/dL (3.2-5.2); BUN/Creatinine Ratio 23.6 (8-20); Calcium 9.2 mg/dL (8.6-10.3); EGFR African American 141.8 (>60); EGFR Non-African American 110.3 (>60); Total Bilirubin 0.6 mg/dL (0.2-1.0); Total Protein 6.5 g/dL (6.4-8.9)
[2017-09-12] MEDS: Aspirin EC Low Dose* 81 MG TAB.EC PO SCH (08:43)
[2017-09-12] MEDS: Docusate CAP* 100 MG PO SCH ×2 (08:43→20:58)
[2017-09-12] MEDS: Mometasone/Formoter 200/5 MDI INH SCH ×2 (08:43→20:46)
[2017-09-12] MEDS: Nicotine PATCH 21 MG/24 HR* PATCH TRANSDERM SCH (08:44)
[2017-09-12] MEDS: Methocarbamol TAB* 500 MG PO PRN ×2 (10:43→17:03)
--- NOTE | 2017-09-12 12:26 | PMRUTEAM ---
PMRU: Goals Current Status: Nursing: Current Status Skin Deviations [Left Lateral Incision Hip] Skin Deviations [Bilateral Arm Bruise ] Skin Deviations [Right Heel] Other Skin Deviations [Left Heel] Blister Skin Deviation Description [ red, elevated on pillow Right Heel] Skin Deviation Description [ dried Left Heel] Physical Therapy: Current Status Bed Mobility Assistance Supervision Transfer Moblility Assistance Contact guard Transfer/Bed Mobility Rolling Walker Recommended Devices Ambulation Assistance contact guard Ambulation Assistive Devices Rolling Walker Stairs Assistance N/A Stairs Recommended Devices Two Rails Number of Stairs 4 Occupational Therapy: Current Status Upper Body Dressing Supervision Lower Body Dressing Max Asst Bathing Min Assist Toileting Contact Guard Assist Toilet Transfer Contact Guard Assist Shower Transfer Contact Guard Assist Eating Ind with Adaptive Equip Rec Therapy: Current Status Summary of Assessment and Patient was open to meeting, was euthymic and had Clinical Impression a sense of humor. 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 Patient requesting paint brushes which will be provided. Treatment Goals Patient will engage in leisure and recreational activities while on the unit. Treatment Plan Provide and encourage involvement in RT services. Social Work: Current Status Discharge Plan return home with home care svs and support from friends Potential for Family Training n/a pt lives alone Anticipated Discharge Home Destination Discharge With home care svs and support from friends Goals: Physical Therapy: Updated Goals Transfer/Bed Mobility Rolling Walker Recommended Devices Occupational Therapy: Initial Goals Goals to be Completed in (Days 7-10 days ) Upper Body Bathing Routine Modified Independent with Lower Body Bathing Routine Modified Independent with Upper Body Dressing Routine Independent Lower Body Dressing Routine Modified Independent with Toilet Hygeine and Clothing Modified Independent with Management Routine Toilet Transfer Routine Modified Independent with Tub Transfer Routine Modified Independent with Functional Transfers for ADL Modified Independent with Grooming Routine Independent Feeding Routine Modified Independent with Light Housekeeping Tasks Modified Independent with Social Work: Goals Discharge Plan return home with home care svs and support from friends Potential for Family Training n/a pt lives alone Anticipated Discharge Home Destination Discharge With home care svs and support from friends Care Plan: Care Plan Cardiovascular- Improve/Maintain Start: 09/11/17 19:23 Freq: QSHIFT Status: Active Target: Protocol: Activity Type Activity Date Activity User E-Sign Co-Sign Detail Recorded Client Recorded Date Recorded By Document 09/12/17 12:00 [id number] 09/12/17 12:00 09/12/17 12:00 PMRU Outcome: Cardiovascular Vital Signs q Shift for 48hrs Then BID Yes Daily Weight Ordered No Current Cardiovascular Outcome/Goal Maintain/ Achieve Baseline HR, BP , Perfusion Maintain/ Achieve Hemodynamic Stability Improve/ Maintain Cardiac Output Progression Toward Outcome/Goal Progressing Communication-Improve/Maintain Start: 09/11/17 19:23 Freq: QSHIFT Status: Active Target: Protocol: Activity Type Activity Date Activity User E-Sign Co-Sign Detail Recorded Client Recorded Date Recorded By Document 09/12/17 12:00 [id number] 09/12/17 12:00 09/12/17 12:00 PMRU Outcome: Communication/Cognitive Status Outcome/Goals Use Comm Tools/ Devices Makes Needs Known Effectively Progression Toward Outcomes/Goals Progressing Coping/Psych-Improve/Maintain Start: 09/11/17 19:23 Freq: QSHIFT Status: Active Target: Protocol: Activity Type Activity Date Activity User E-Sign Co-Sign Detail Recorded Client Recorded Date Recorded By Document 09/12/17 12:00 [id number] 09/12/17 12:00 09/12/17 12:00 PMRU Outcome: Coping/Psychosocial Coping Outcome/Goals Verbalization of Acceptance of Rehab Admit Verbalization of Sense of Control Over Health Status Utilization of Appropriate Problem Solving Techniques Willingness to Participate in Treatment Plan and Basic Needs Utilization of Available Support Systems Absence of Destructive Behavior to Self/Others Psychosocial Outcome/Goals Maintain/ Improve Emotional Health Demonstrates Knowledge of Healthy Coping Mechanisms Available Cooperate/ Participate in Plan Progression Toward Outcome/Goals - Progressing Coping Progression Toward Outcome/Goals - Progressing Psychosocial DVT Prophylaxis- Improve/Maintain Start: 09/11/17 19:23 Freq: QSHIFT Status: Active Target: Protocol: Activity Type Activity Date Activity User E-Sign Co-Sign Detail Recorded Client Recorded Date Recorded By Document 09/12/17 12:00 [id number] 09/12/17 12:00 09/12/17 12:00 PMRU Outcome: DVT Prophylaxis Outcome/Goals Remains Free of DVT TEDS Stockings on Every AM, Off at HS Progression Toward Outcome/Goals Progressing Discharge Planning - Improve/Maintain Start: 09/11/17 19:23 Freq: QSHIFT Status: Active Target: Protocol: Activity Type Activity Date Activity User E-Sign Co-Sign Detail Recorded Client Recorded Date Recorded By Document 09/12/17 12:00 [id number] 09/12/17 12:00 [id number] 09/12/17 12:00 PMRU Outcome: Discharge Planning Identify Patient Needs yes Update Patient Family No Outcome/Goals Demonstrates Understanding of Discharge Plan Progression Toward Outcome/Goals Progressing Education-Improve/Maintain Start: 09/11/17 19:23 Freq: QSHIFT Status: Active Target: Protocol: Activity Type Activity Date Activity User E-Sign Co-Sign Detail Recorded Client Recorded Date Recorded By Document 09/12/17 12:00 [id number] 09/12/17 12:00 [id number] 09/12/17 12:00 PMRU Outcome: Education Outcome/Goals Demonstrate/ Verbalize Understanding of Written Discharge Instructions Encourage Questions Progression Toward Outcome/Goals Progressing /GI-Improve/Maintain Start: 09/11/17 19:23 Freq: QSHIFT Status: Active Target: Protocol: Activity Type Activity Date Activity User E-Sign Co-Sign Detail Recorded Client Recorded Date Recorded By Document 09/12/17 12:00 [id number] 09/12/17 12:00 [id number] 09/12/17 12:00 PMRU Outcome: Genitourinary/ Gastrointestinal Genitourinary- Outcome/Goals Maintain/ Achieve Urinary Continence Maintain/ Achieve Adequate Urinary Output Remain Free of Hospital- Acquired UTI Gastrointestinal-Outcome/Goals Maintain/ Achieve Bowel Regularity in Accordance with Pt's Baseline Prevent Constipation Progression Toward Outcome/Goals - Progressing Progression Toward Outcome/Goals - GI Progressing Mobility- Improve/Maintain Start: 09/11/17 11:33 Freq: QSHIFT Status: Active Target: Protocol: Activity Type Activity Date Activity User E-Sign Co-Sign Detail Recorded Client Recorded Date Recorded By Document 09/11/17 11:33 [id number] 09/11/17 11:33 [id number] 09/11/17 11:33 PMRU Outcome: Mobility Physical Therapy Evaluation and Yes Treatment Activity OOB with Assistance Yes WBAT PWB 50% Device Yes Assistance Yes Patient to be seen 5x/wk for 60-120 min/ Therex day for: Mobility Training Gait Training Balance Outcome/Goals Maintain/ Achieve Baseline Mobility Status Improve Mobility Status Demonstrates Proper Use of Assistive Devices Free from Complications of Immobility Bed Mobility Yes: Independent Transfers Yes: Modified independent with RW Gait x ft Yes: Modified independent 150 ' with RW Up/Down Stairs Yes: Independent 4 steps 2 rails With HEP Yes: Independent Pain/Comfort- Improve/Maintain Start: 09/11/17 19:23 Freq: QSHIFT Status: Active Target: Protocol: Activity Type Activity Date Activity User E-Sign Co-Sign Detail Recorded Client Recorded Date Recorded By Document 09/12/17 12:00 [email or web address] 09/12/17 12:00 09/12/17 12:00 PMRU Outcome: Pain/Comfort Outcome/Goals Demonstrates Knowledge and Use of Available Comfort Measures Achieves Acceptable Comfort/Pain Level as Determined by Patient/Condit Maintain Comfort Level Allowing Patient to Fully Participate in Rehab Progression Toward Outcome/Goals Progressing Respiratory - Improve/Maintain Start: 09/11/17 19:23 Freq: QSHIFT Status: Active Target: Protocol: Activity Type Activity Date Activity User E-Sign Co-Sign Detail Recorded Client Recorded Date Recorded By Document 09/12/17 12:00 [email or web address] 09/12/17 12:00 09/12/17 12:00 PMRU Outcome: Respiratory Does Patient Have a Trach No Outcome/Goals Maintain/ Improve O2 Sat per MD Order Maintain/ Improve Activity Tolerance Progression Toward Outcome/Goals Progressing Safety- Improve/Maintain Start: 09/11/17 19:23 Freq: QSHIFT Status: Active Target: Protocol: Activity Type Activity Date Activity User E-Sign Co-Sign Detail Recorded Client Recorded Date Recorded By Document 09/12/17 12:00 [email or web address] 09/12/17 12:00 09/12/17 12:00 PMRU Outcome: Safety Outcome/Goals Remain Free of Injury or Harm Cooperates with Safety Measures for Least Restrictive Environment Prevent Falls/ Injury Progression Toward Outcome/Goals Progressing Skin- Improve/Maintain Start: 09/11/17 19:23 Freq: QSHIFT Status: Active Target: Protocol: Activity Type Activity Date Activity User E-Sign Co-Sign Detail Recorded Client Recorded Date Recorded By Document 09/12/17 12:00 [id number] 09/12/17 12:00 09/12/17 12:00 PMRU Outcome: Skin Skin Risk Level Medium Skin Orders Dressing Change Heels Off Bed Turn/Position q2hr While in Bed Outcome/Goals Maintain/ Improve Skin Intergrity Surgical Incisions Healing Progression Toward Outcome/Goals Progressing Medicine Note: Length of Stay: 6 days Anticipated Discharge Destination: Home Tentative Discharge Date: 09/18/17 Discharged to: home
--- NOTE | 2017-09-12 16:42 | PN ---
Progress Note - Progress Note Date of Service: 09/12/17 Note: Franco visited. He was discussed in interdisciplinary plan of care rounds. He is having less pain since his surgery and is moving better. Current Medications Acetaminophen (Tylenol Tab*) 650 mg PO Q6H PRN PRN Reason: FEVER/PAIN Hydrocodone Bitart/Acetaminophen (Vaughn 5-325 Tab*) 1 tab PO Q4H PRN PRN Reason: PAIN Last Admin: 09/11/17 23:02 Dose: 1 tab Hydrocodone Bitart/Acetaminophen (Vaughn 5-325 Tab*) 2 tab PO Q4H PRN PRN Reason: PAIN - SEVERE Last Admin: 09/12/17 14:33 Dose: 2 tab Aspirin (Aspirin Ec Low Dose*) 81 mg PO DAILY [facility] Last Admin: 09/12/17 08:43 Dose: 81 mg Bisacodyl (Dulcolax Supp*) 10 mg IA DAILY PRN PRN Reason: CONSTIPATION Docusate Sodium (Colace Cap*) 100 mg PO BID [facility] Last Admin: 09/12/17 08:43 Dose: 100 mg Heparin Sodium (Porcine) (Heparin Vial(*)) 5,000 units SUBCUT Q8HR [facility] Last Admin: 09/12/17 12:45 Dose: 5,000 units Magnesium Hydroxide (Milk Of Magnesia Liq*) 30 ml PO Q6H PRN PRN Reason: CONSTIPATION Methocarbamol (Robaxin Tab*) 750 mg PO Q6H PRN PRN Reason: SPASMS Last Admin: 09/12/17 10:43 Dose: 750 mg Mometasone Furoate/Formoterol Fumar (Dulera 200/5 Mdi*) 2 puff INH BID [facility] Last Admin: 09/12/17 08:43 Dose: 2 puff Morphine Sulfate (Ms Contin(*)) 15 mg PO Q8H [facility] Last Admin: 09/12/17 12:44 Dose: 15 mg Nicotine (Nicotine Inhaler*) 10 mg INH Q2H PRN PRN Reason: CRAVING Last Admin: 09/11/17 15:31 Dose: 10 mg Nicotine (Nicotine Patch 21 Mg/24 Hr*) 1 patch TRANSDERM DAILY@0800 [facility] Last Admin: 09/12/17 08:44 Dose: 1 patch Pharmacy Profile Note (Nicotine Patch Removal Note*) 1 note FOLLOW UP 2100 [facility] Last Admin: 09/11/17 21:09 Dose: 1 note Polyvinyl Alcohol (Polyvinyl Alcohol 1.4% Opth*) 1 drop BOTH EYES Q2H PRN PRN Reason: DRY EYE Last Admin: 09/11/17 18:23 Dose: 1 drop Quetiapine Fumarate (Seroquel Tab*) 50 mg PO 2100 [facility] Last Admin: 09/11/17 20:58 Dose: 50 mg Senna (Senokot Tab*) 2 tab PO BEDTIME PRN PRN Reason: CONSTIPATION Laboratory Results - last 24 hr 09/12/17 09/12/17 09/12/17 06:51 06:51 06:51 WBC 7.3 RBC 4.04 Hgb 12.2 L Hct 36 L MCV 90 MCH 30 MCHC 34 RDW 14 Plt Count 287 MPV 8 Neut % (Auto) 61.4 Lymph % (Auto) 22.6 L Reagan % (Auto) 11.4 H Eos % (Auto) 4.0 Baso % (Auto) 0.6 Absolute Neuts (auto) 4.5 Absolute Lymphs (auto) 1.7 Absolute Monos (auto) 0.8 Absolute Eos (auto) 0.3 Absolute Basos (auto) 0 Absolute Nucleated RBC 0 Nucleated RBC % 0 INR (Anticoag Therapy) 1.06 H Sodium 139 Potassium 4.0 Chloride 104 Carbon Dioxide 30 Anion Gap 5 BUN 17 Creatinine 0.72 Est GFR ( Amer) 141.8 Est GFR (Non-Af Amer) 110.3 BUN/Creatinine Ratio 23.6 H Glucose 96 Calcium 9.2 Total Bilirubin 0.60 AST 15 ALT 14 Alkaline Phosphatase 69 Total Protein 6.5 Albumin 3.5 Globulin 3.0 Albumin/Globulin Ratio 1.2 Vital Signs Temp Pulse Resp BP Pulse Ox 98.4 F 67 16 110/57 96 09/12/17 15:53 09/12/17 15:53 09/12/17 15:53 09/12/17 15:53 09/12/17 15:53 EXAM: LUNGS: Scattered wheezes HEART: Reg rhythm ABDOMEN: Soft, +BS EXTREMITIES: left hip wound clean ASSESSMENT/PLAN: 1. Left Hip Fracture: PT/OT. 2. COPD: Dulera. May need Spiriva 3. Analgesia: MS Contin/Vaughn. May try to taper MS Contin 4. Nicotine Addiction: Nicotine Patch 5. Advanced directives: has MOLST. Wants full Code 6. DVT Prophylaxis: Heparin S/Q
[2017-09-12] MEDS: QUEtiapine TAB* 25 MG PO SCH (20:59)
[2017-09-12] MEDS: Nicotine Patch Removal NOTE FOLLOW UP SCH (21:05)
[2017-09-12] MEDS: Artificial Tears* 15 ML BTL BOTH EYES PRN (22:40)
[2017-09-13] MEDS: HYDROcodone/ACETAMIN 5-325 MG* 1 TAB PO PRN ×3 (00:05→14:25)
[2017-09-13] MEDS: Morphine TAB Extended Release (*) 15 MG TAB.ER PO SCH ×3 (05:25→20:53)
[2017-09-13] MEDS: Heparin VIAL(*) 5000 UNITS/ML VIAL (FIVE THOUSAND) SUBCUT SCH ×3 (05:26→21:45)
[2017-09-13] MEDS: Aspirin EC Low Dose* 81 MG TAB.EC PO SCH (09:20)
[2017-09-13] MEDS: Docusate CAP* 100 MG PO SCH ×2 (09:20→20:53)
[2017-09-13] MEDS: Mometasone/Formoter 200/5 MDI INH SCH ×2 (09:20→20:10)
[2017-09-13] MEDS: Nicotine PATCH 21 MG/24 HR* PATCH TRANSDERM SCH (09:21)
--- NOTE | 2017-09-13 14:10 | PN ---
Progress Note - Progress Note Date of Service: 09/13/17 Note: Franco visited. Therapy notes reviewed. He is doing better overall and moving fairly well. No other complaints. Current Medications Acetaminophen (Tylenol Tab*) 650 mg PO Q6H PRN PRN Reason: FEVER/PAIN Hydrocodone Bitart/Acetaminophen (Huslia 5-325 Tab*) 1 tab PO Q4H PRN PRN Reason: PAIN Last Admin: 09/11/17 23:02 Dose: 1 tab Hydrocodone Bitart/Acetaminophen (Huslia 5-325 Tab*) 2 tab PO Q4H PRN PRN Reason: PAIN - SEVERE Last Admin: 09/13/17 09:20 Dose: 2 tab Aspirin (Aspirin Ec Low Dose*) 81 mg PO DAILY [facility] Last Admin: 09/13/17 09:20 Dose: 81 mg Bisacodyl (Dulcolax Supp*) 10 mg OR DAILY PRN PRN Reason: CONSTIPATION Docusate Sodium (Colace Cap*) 100 mg PO BID [facility] Last Admin: 09/13/17 09:20 Dose: 100 mg Heparin Sodium (Porcine) (Heparin Vial(*)) 5,000 units SUBCUT Q8HR [facility] Last Admin: 09/13/17 05:26 Dose: 5,000 units Magnesium Hydroxide (Milk Of Magnesia Liq*) 30 ml PO Q6H PRN PRN Reason: CONSTIPATION Methocarbamol (Robaxin Tab*) 750 mg PO Q6H PRN PRN Reason: SPASMS Last Admin: 09/12/17 17:03 Dose: 750 mg Mometasone Furoate/Formoterol Fumar (Dulera 200/5 Mdi*) 2 puff INH BID [facility] Last Admin: 09/13/17 09:20 Dose: 2 puff Morphine Sulfate (Ms Contin(*)) 15 mg PO Q8H [facility] Last Admin: 09/13/17 12:03 Dose: 15 mg Nicotine (Nicotine Inhaler*) 10 mg INH Q2H PRN PRN Reason: CRAVING Last Admin: 09/11/17 15:31 Dose: 10 mg Nicotine (Nicotine Patch 21 Mg/24 Hr*) 1 patch TRANSDERM DAILY@0800 [facility] Last Admin: 09/13/17 09:21 Dose: 1 patch Pharmacy Profile Note (Nicotine Patch Removal Note*) 1 note FOLLOW UP 2100 [facility] Last Admin: 09/12/17 21:05 Dose: 1 note Polyvinyl Alcohol (Polyvinyl Alcohol 1.4% Opth*) 1 drop BOTH EYES Q2H PRN PRN Reason: DRY EYE Last Admin: 09/12/17 22:40 Dose: 1 drop Quetiapine Fumarate (Seroquel Tab*) 50 mg PO 2100 [facility] Last Admin: 09/12/17 20:59 Dose: 50 mg Senna (Senokot Tab*) 2 tab PO BEDTIME PRN PRN Reason: CONSTIPATION Last Admin: 09/12/17 21:06 Dose: 2 tab Vital Signs Temp Pulse Resp BP Pulse Ox 98.5 F 71 18 99/54 96 09/13/17 05:26 09/13/17 05:26 09/13/17 12:03 09/13/17 05:26 09/13/17 09:28 EXAM: LUNGS: Scattered wheezes HEART: Reg rhythm ABDOMEN: Soft, +BS EXTREMITIES: left hip wound clean ASSESSMENT/PLAN: 1. Left Hip Fracture: PT/OT. 2. COPD: Dulera. May need Spiriva 3. Analgesia: MS Contin/Huslia. May try to taper MS Contin 4. Nicotine Addiction: Nicotine Patch 5. Advanced directives: has MOLST. Wants full Code 6. DVT Prophylaxis: Heparin S/Q
[2017-09-13] MEDS: Methocarbamol TAB* 500 MG PO PRN (16:20)
[2017-09-13] MEDS: QUEtiapine TAB* 25 MG PO SCH (20:54)
[2017-09-13] MEDS: Nicotine Patch Removal NOTE FOLLOW UP SCH (21:57)
[2017-09-14] MEDS: Morphine TAB Extended Release (*) 15 MG TAB.ER PO SCH ×3 (05:08→21:08)
[2017-09-14] MEDS: Heparin VIAL(*) 5000 UNITS/ML VIAL (FIVE THOUSAND) SUBCUT SCH ×3 (05:08→21:09)
[2017-09-14] MEDS: Mometasone/Formoter 200/5 MDI INH SCH ×2 (09:04→21:08)
[2017-09-14] MEDS: Aspirin EC Low Dose* 81 MG TAB.EC PO SCH (10:04)
[2017-09-14] MEDS: Docusate CAP* 100 MG PO SCH ×2 (10:04→21:08)
[2017-09-14] MEDS: HYDROcodone/ACETAMIN 5-325 MG* 1 TAB PO PRN (10:05)
[2017-09-14] MEDS: Nicotine PATCH 21 MG/24 HR* PATCH TRANSDERM SCH (10:06)
[2017-09-14] MEDS: Methocarbamol TAB* 500 MG PO PRN (11:23)
--- NOTE | 2017-09-14 16:46 | PN ---
Progress Note - Progress Note Date of Service: 09/14/17 Note: Franco visited. We had a discussion about his fall at home, possibly from hunger that led to his fracture. He will accept Meals on Wheels after discharge. Current Medications Acetaminophen (Tylenol Tab*) 650 mg PO Q6H PRN PRN Reason: FEVER/PAIN Hydrocodone Bitart/Acetaminophen ([place] 5-325 Tab*) 1 tab PO Q4H PRN PRN Reason: PAIN Last Admin: 09/11/17 23:02 Dose: 1 tab Hydrocodone Bitart/Acetaminophen ([place] 5-325 Tab*) 2 tab PO Q4H PRN PRN Reason: PAIN - SEVERE Last Admin: 09/14/17 10:05 Dose: 2 tab Aspirin (Aspirin Ec Low Dose*) 81 mg PO DAILY [facility] Last Admin: 09/14/17 10:04 Dose: 81 mg Bisacodyl (Dulcolax Supp*) 10 mg NC DAILY PRN PRN Reason: CONSTIPATION Docusate Sodium (Colace Cap*) 100 mg PO BID [facility] Last Admin: 09/14/17 10:04 Dose: 100 mg Heparin Sodium (Porcine) (Heparin Vial(*)) 5,000 units SUBCUT Q8HR [facility] Last Admin: 09/14/17 13:17 Dose: 5,000 units Magnesium Hydroxide (Milk Of Magnesia Liq*) 30 ml PO Q6H PRN PRN Reason: CONSTIPATION Methocarbamol (Robaxin Tab*) 750 mg PO Q6H PRN PRN Reason: SPASMS Last Admin: 09/14/17 11:23 Dose: 750 mg Mometasone Furoate/Formoterol Fumar (Dulera 200/5 Mdi*) 2 puff INH BID [facility] Last Admin: 09/14/17 09:04 Dose: 2 puff Morphine Sulfate (Ms Contin(*)) 15 mg PO Q8H [facility] Last Admin: 09/14/17 13:17 Dose: 15 mg Nicotine (Nicotine Inhaler*) 10 mg INH Q2H PRN PRN Reason: CRAVING Last Admin: 09/11/17 15:31 Dose: 10 mg Nicotine (Nicotine Patch 21 Mg/24 Hr*) 1 patch TRANSDERM DAILY@0800 [facility] Last Admin: 09/14/17 10:06 Dose: 1 patch Pharmacy Profile Note (Nicotine Patch Removal Note*) 1 note FOLLOW UP 2100 [facility] Last Admin: 09/13/17 21:57 Dose: Not Given Polyvinyl Alcohol (Polyvinyl Alcohol 1.4% Opth*) 1 drop BOTH EYES Q2H PRN PRN Reason: DRY EYE Last Admin: 09/12/17 22:40 Dose: 1 drop Quetiapine Fumarate (Seroquel Tab*) 50 mg PO 2100 [facility] Last Admin: 09/13/17 20:54 Dose: 50 mg Senna (Senokot Tab*) 2 tab PO BEDTIME PRN PRN Reason: CONSTIPATION Last Admin: 09/12/17 21:06 Dose: 2 tab Vital Signs Temp Pulse Resp BP Pulse Ox 98.1 F 79 20 97/53 99 09/14/17 16:35 09/14/17 16:35 09/14/17 16:35 09/14/17 16:35 09/14/17 16:35 EXAM: LUNGS: Scattered wheezes HEART: Reg rhythm ABDOMEN: Soft, +BS EXTREMITIES: left hip wound clean ASSESSMENT/PLAN: 1. Left Hip Fracture: PT/OT. 2. COPD: Dulera. May need Spiriva 3. Analgesia: MS Contin/[place]. Will taper MS Contin 4. Nicotine Addiction: Nicotine Patch 5. Advanced directives: has MOLST. Wants full Code 6. DVT Prophylaxis: Heparin S/Q
[2017-09-14] MEDS: QUEtiapine TAB* 25 MG PO SCH (21:09)
[2017-09-14] MEDS: Nicotine Patch Removal NOTE FOLLOW UP SCH (21:09)
[2017-09-15] MEDS: Heparin VIAL(*) 5000 UNITS/ML VIAL (FIVE THOUSAND) SUBCUT SCH ×3 (05:41→21:49)
[2017-09-15] MEDS: Nicotine PATCH 21 MG/24 HR* PATCH TRANSDERM SCH (09:38)
[2017-09-15] MEDS: Docusate CAP* 100 MG PO SCH ×2 (09:40→20:03)
[2017-09-15] MEDS: Aspirin EC Low Dose* 81 MG TAB.EC PO SCH (09:40)
[2017-09-15] MEDS: Morphine TAB Extended Release (*) 15 MG TAB.ER PO SCH ×2 (09:41→20:03)
[2017-09-15] MEDS: Mometasone/Formoter 200/5 MDI INH SCH ×2 (09:42→21:48)
[2017-09-15] MEDS: HYDROcodone/ACETAMIN 5-325 MG* 1 TAB PO PRN ×2 (12:45→17:25)
--- NOTE | 2017-09-15 16:29 | PN ---
Progress Note - Progress Note Date of Service: 09/15/17 Note: Franco visited. He thinks he is supposed to be on medicine for depression but unable to say what the medicines are. [facility] Therapy notes read and reviewed. Current Medications Acetaminophen (Tylenol Tab*) 650 mg PO Q6H PRN PRN Reason: FEVER/PAIN Hydrocodone Bitart/Acetaminophen ([place] 5-325 Tab*) 1 tab PO Q4H PRN PRN Reason: PAIN Last Admin: 09/11/17 23:02 Dose: 1 tab Hydrocodone Bitart/Acetaminophen ([place] 5-325 Tab*) 2 tab PO Q4H PRN PRN Reason: PAIN - SEVERE Last Admin: 09/15/17 12:45 Dose: 2 tab Aspirin (Aspirin Ec Low Dose*) 81 mg PO DAILY [facility] Last Admin: 09/15/17 09:40 Dose: 81 mg Bisacodyl (Dulcolax Supp*) 10 mg IA DAILY PRN PRN Reason: CONSTIPATION Docusate Sodium (Colace Cap*) 100 mg PO BID [facility] Last Admin: 09/15/17 09:40 Dose: 100 mg Heparin Sodium (Porcine) (Heparin Vial(*)) 5,000 units SUBCUT Q8HR [facility] Last Admin: 09/15/17 15:30 Dose: 5,000 units Magnesium Hydroxide (Milk Of Magnesia Liq*) 30 ml PO Q6H PRN PRN Reason: CONSTIPATION Methocarbamol (Robaxin Tab*) 750 mg PO Q6H PRN PRN Reason: SPASMS Last Admin: 09/14/17 11:23 Dose: 750 mg Mometasone Furoate/Formoterol Fumar (Dulera 200/5 Mdi*) 2 puff INH BID [facility] Last Admin: 09/15/17 09:42 Dose: 2 puff Morphine Sulfate (Ms Contin(*)) 15 mg PO Q12H [facility] Last Admin: 09/15/17 09:41 Dose: 15 mg Nicotine (Nicotine Inhaler*) 10 mg INH Q2H PRN PRN Reason: CRAVING Last Admin: 09/11/17 15:31 Dose: 10 mg Nicotine (Nicotine Patch 21 Mg/24 Hr*) 1 patch TRANSDERM DAILY@0800 [facility] Last Admin: 09/15/17 09:38 Dose: 1 patch Pharmacy Profile Note (Nicotine Patch Removal Note*) 1 note FOLLOW UP [address]100 [facility] Last Admin: 09/14/17 21:09 Dose: Not Given Polyvinyl Alcohol (Polyvinyl Alcohol 1.4% Opth*) 1 drop BOTH EYES Q2H PRN PRN Reason: DRY EYE Last Admin: 09/12/17 22:40 Dose: 1 drop Quetiapine Fumarate (Seroquel Tab*) 50 mg PO 2100 [facility] Last Admin: 09/14/17 21:09 Dose: 50 mg Senna (Senokot Tab*) 2 tab PO BEDTIME PRN PRN Reason: CONSTIPATION Last Admin: 09/12/17 21:06 Dose: 2 tab Vital Signs Temp Pulse Resp BP Pulse Ox 98.5 F 62 16 130/64 99 09/15/17 05:38 09/15/17 05:38 09/15/17 12:46 09/15/17 05:38 09/15/17 05:38 EXAM: LUNGS: Scattered wheezes HEART: Reg rhythm ABDOMEN: Soft, +BS EXTREMITIES: left hip wound clean ASSESSMENT/PLAN: 1. Left Hip Fracture: PT/OT. 2. COPD: Dulera. May need Spiriva 3. Analgesia: MS Contin/[place]. Will taper MS Contin 4. Nicotine Addiction: Nicotine Patch 5. Advanced directives: has MOLST. Wants full Code 6. DVT Prophylaxis: Heparin S/Q
[2017-09-15] MEDS: QUEtiapine TAB* 25 MG PO SCH (20:04)
[2017-09-15] MEDS: Nicotine Patch Removal NOTE FOLLOW UP SCH (21:06)
[2017-09-16] MEDS: Heparin VIAL(*) 5000 UNITS/ML VIAL (FIVE THOUSAND) SUBCUT SCH ×3 (05:15→21:29)
[2017-09-16] MEDS: HYDROcodone/ACETAMIN 5-325 MG* 1 TAB PO PRN ×2 (05:16→21:12)
[2017-09-16] MEDS: Morphine TAB Extended Release (*) 15 MG TAB.ER PO SCH (10:24)
[2017-09-16] MEDS: Aspirin EC Low Dose* 81 MG TAB.EC PO SCH (10:24)
[2017-09-16] MEDS: Docusate CAP* 100 MG PO SCH ×2 (10:24→21:12)
[2017-09-16] MEDS: Mometasone/Formoter 200/5 MDI INH SCH ×2 (10:25→21:30)
[2017-09-16] MEDS: Nicotine PATCH 21 MG/24 HR* PATCH TRANSDERM SCH (12:16)
--- NOTE | 2017-09-16 13:05 | PMRUTEAM ---
PMRU: Goals Current Status: Nursing: Current Status Skin Deviations [Left Lateral Incision Hip] Skin Deviations [Bilateral Arm Bruise ] Skin Deviations [Right Heel] Other Skin Deviations [Left Heel] Blister Skin Deviation Description [ intact with clips and left open to air Left Lateral Hip] Skin Deviation Description [ redness blanchable'heels elevated off chair Right Heel] Skin Deviation Description [ meplex Left Heel] Physical Therapy: Current Status Bed Mobility Assistance Supervision Transfer Moblility Assistance Supervision Transfer/Bed Mobility Rolling Walker Recommended Devices Ambulation Assistance Supervision Ambulation Assistive Devices Rolling Walker Number of Feet Patient 110' Ambulated Stairs Assistance Supervision Stairs Recommended Devices Two Rails Number of Stairs 3 Occupational Therapy: Current Status Upper Body Dressing Independent Lower Body Dressing Ind with Adaptive Equip Bathing Ind with Adaptive Equip Toileting Independent Toilet Transfer Ind with Adaptive Equip Shower Transfer Ind with Adaptive Equip Eating Ind with Adaptive Equip Rec Therapy: Current Status Summary of Assessment and RT assessment complete and pt. is aware of RT Clinical Impression services. Pt. has recreation and leisure material that was provided to him and he engages in painting on the unit daily. Treatment Goals Pt. will continue to engage in leisure activities while on the unit. Treatment Plan Provide RT services and enourage involvement. Social Work: Current Status Discharge Plan return home with home care svs and support from friends Potential for Family Training n/a (pt lives alone) Anticipated Discharge Home Destination Discharge With home care svs and support from friends Nutrition: Current Status Monitoring now w/pressure ulcer to left heel; left hip incision intact and healing. Low risk for further skin breakdown. Eating well (75-100% of regular diet). Supplements added and adjusted 09/12 to promote gradual wt repletion and healing of left heel breakdown. Bowel function ok w/daily BMs. Goals: Physical Therapy: Initial Goals Bed Mobility Assistance Independent Transfer Mobility Assistance Independent Transfer/Bed Mobility Rolling Walker Recommended Devices Ambulation Independent Ambulation Recommended Devices Rolling Walker Ambulation Distance 150 Stairs Assistance Independent Stair Recommended Devices Two Rails Number of Stairs 3 Home Exercise Program Independent Assistance Physical Therapy: Updated Goals Bed Mobility Assistance Supervision Transfer Mobility Assistance Supervision Transfer/Bed Mobility Rolling Walker Recommended Devices Ambulation Assistance Supervision Ambulation Assistive Devices Rolling Walker Ambulation Distance (ft) 150' Stairs Assistance Supervision Stairs Recommended Devices Two Rails Number of Stairs 5 Home Exercise Program Independent Assistance Occupational Therapy: Initial Goals Goals to be Completed in (Days 7-10 days ) Upper Body Bathing Routine Modified Independent with Lower Body Bathing Routine Modified Independent with Upper Body Dressing Routine Independent Lower Body Dressing Routine Modified Independent with Toilet Hygeine and Clothing Modified Independent with Management Routine Toilet Transfer Routine Modified Independent with Tub Transfer Routine Modified Independent with Functional Transfers for ADL Modified Independent with Grooming Routine Independent Feeding Routine Modified Independent with Light Housekeeping Tasks Modified Independent with Nutrition: Goals Intervention Goals 1. Adequate po intake to support weight repletion and prevent loss of lean body mass 2. High protein meals/snacks as able 3. Pt will tolerate diet w/o exacerbation of GI s/ sx (nausea) 4. Skin will remain intact w/o evidence of breakdown 5. Maintain regularity of BM w/o constipation or diarrhea Social Work: Goals Discharge Plan return home with home care svs and support from friends Potential for Family Training n/a (pt lives alone) Anticipated Discharge Home Destination Discharge With home care svs and support from friends Care Plan: Care Plan ADL's - Improve/Maintain Start: 09/11/17 19:23 Freq: QSHIFT Status: Active Target: Protocol: Activity Type Activity Date Activity User E-Sign Co-Sign Detail Recorded Client Recorded Date Recorded By Document 09/13/17 12:12 [id number] 09/13/17 12:13 [id number] 09/13/17 12:12 PMRU Outcome: ADL's/ADL Transfers Orders/Interventions Occupational Therapy Evaluation & Treatment Communication Tool in Patient Room Patient to receive OT 5x/wk for 60-120 Therex min/day Self Care Management Group Therapy Neuromuscular ReEducation UE/LE ADL's with Assist Yes: Mod I with AE as needed ADL Transfers with Assist Yes: Mod I with FWW Toileting: Transfers,Clothing Management Yes: Mod I with ,Hygeine w/Assist FWW Light Kitchen/Laundry w/Assist Yes: Mod with FWW Progression Toward Outcome/Goals Progressing Outcome/Goals Met Pt making notable gains today re: LB dressing as a result of improved pain control and increased hip flexion. He is likely not to need AE by his d/c date. Cardiovascular- Improve/Maintain Start: 09/11/17 19:23 Freq: QSHIFT Status: Active Target: Protocol: Activity Type Activity Date Activity User E-Sign Co-Sign Detail Recorded Client Recorded Date Recorded By Document 09/16/17 01:20 [id number] 09/16/17 01:20 [id number] 09/16/17 01:20 PMRU Outcome: Cardiovascular Vital Signs q Shift for 48hrs Then BID Yes Daily Weight Ordered No Current Cardiovascular Outcome/Goal Maintain/ Achieve Baseline HR, BP , Perfusion Maintain/ Achieve Hemodynamic Stability Improve/ Maintain Cardiac Output Progression Toward Outcome/Goal Progressing Communication-Improve/Maintain Start: 09/11/17 19:23 Freq: QSHIFT Status: Active Target: Protocol: Activity Type Activity Date Activity User E-Sign Co-Sign Detail Recorded Client Recorded Date Recorded By Document 09/16/17 01:20 [id number] 09/16/17 01:20 [id number] 09/16/17 01:20 PMRU Outcome: Communication/Cognitive Status Outcome/Goals Use Comm Tools/ Devices Makes Needs Known Effectively Progression Toward Outcomes/Goals Progressing Coping/Psych-Improve/Maintain Start: 09/11/17 19:23 Freq: QSHIFT Status: Active Target: Protocol: Activity Type Activity Date Activity User E-Sign Co-Sign Detail Recorded Client Recorded Date Recorded By Document 09/16/17 01:20 [id number] 09/16/17 01:20 [id number] 09/16/17 01:20 PMRU Outcome: Coping/Psychosocial Coping Outcome/Goals Verbalization of Acceptance of Rehab Admit Verbalization of Sense of Control Over Health Status Utilization of Appropriate Problem Solving Techniques Willingness to Participate in Treatment Plan and Basic Needs Utilization of Available Support Systems Absence of Destructive Behavior to Self/Others Psychosocial Outcome/Goals Maintain/ Improve Emotional Health Demonstrates Knowledge of Healthy Coping Mechanisms Available Cooperate/ Participate in Plan Progression Toward Outcome/Goals - Progressing Coping Progression Toward Outcome/Goals - Progressing Psychosocial DVT Prophylaxis- Improve/Maintain Start: 09/11/17 19:23 Freq: QSHIFT Status: Active Target: Protocol: Activity Type Activity Date Activity User E-Sign Co-Sign Detail Recorded Client Recorded Date Recorded By Document 09/16/17 01:20 [id number] 09/16/17 01:20 [id number] 09/16/17 01:20 PMRU Outcome: DVT Prophylaxis Outcome/Goals Remains Free of DVT Complies with DVT Prophylaxis /Treatment TEDS Stockings on Every AM, Off at HS Progression Toward Outcome/Goals Progressing Discharge Planning - Improve/Maintain Start: 09/11/17 19:23 Freq: QSHIFT Status: Active Target: Protocol: Activity Type Activity Date Activity User E-Sign Co-Sign Detail Recorded Client Recorded Date Recorded By Document 09/16/17 01:20 [id number] 09/16/17 01:20 [id number] 09/16/17 01:20 PMRU Outcome: Discharge Planning Identify Patient Needs yes Update Patient Family No Outcome/Goals Demonstrates Understanding of Discharge Plan Progression Toward Outcome/Goals Progressing Education-Improve/Maintain Start: 09/11/17 19:23 Freq: QSHIFT Status: Active Target: Protocol: Activity Type Activity Date Activity User E-Sign Co-Sign Detail Recorded Client Recorded Date Recorded By Document 09/16/17 01:20 [id number] 09/16/17 01:20 [id number] 09/16/17 01:20 PMRU Outcome: Education Outcome/Goals Demonstrate/ Verbalize Understanding of Written Discharge Instructions Encourage Questions Progression Toward Outcome/Goals Progressing /GI-Improve/Maintain Start: 09/11/17 19:23 Freq: QSHIFT Status: Active Target: Protocol: Activity Type Activity Date Activity User E-Sign Co-Sign Detail Recorded Client Recorded Date Recorded By Document 09/16/17 01:20 [id number] 09/16/17 01:20 [id number] 09/16/17 01:20 PMRU Outcome: Genitourinary/ Gastrointestinal Genitourinary- Outcome/Goals Maintain/ Achieve Urinary Continence Maintain/ Achieve Adequate Urinary Output Remain Free of Hospital- Acquired UTI Gastrointestinal-Outcome/Goals Maintain/ Achieve Bowel Regularity in Accordance with Pt's Baseline Prevent Constipation Progression Toward Outcome/Goals - Progressing Progression Toward Outcome/Goals - GI Progressing Mobility- Improve/Maintain Start: 09/11/17 11:33 Freq: QSHIFT Status: Active Target: Protocol: Activity Type Activity Date Activity User E-Sign Co-Sign Detail Recorded Client Recorded Date Recorded By Document 09/15/17 12:34 [id number] 09/15/17 12:34 [id number] 09/15/17 12:34 PMRU Outcome: Mobility Physical Therapy Evaluation and Yes Treatment Activity OOB with Assistance Yes WBAT PWB 50% Device Yes Assistance Yes Patient to be seen 5x/wk for 60-120 min/ Therex day for: Mobility Training Gait Training Balance Outcome/Goals Maintain/ Achieve Baseline Mobility Status Improve Mobility Status Demonstrates Proper Use of Assistive Devices Free from Complications of Immobility Progression Toward Outcome/Goals Progressing Bed Mobility Yes: Independent Transfers Yes: Modified independent with RW Gait x ft Yes: Modified independent 150 ' with RW Up/Down Stairs Yes: Independent 4 steps 2 rails With HEP Yes: Independent Pain/Comfort- Improve/Maintain Start: 09/11/17 19:23 Freq: QSHIFT Status: Active Target: Protocol: Activity Type Activity Date Activity User E-Sign Co-Sign Detail Recorded Client Recorded Date Recorded By Document 09/16/17 01:20 [id number] 09/16/17 01:20 [id number] 09/16/17 01:20 PMRU Outcome: Pain/Comfort Outcome/Goals Demonstrates Knowledge and Use of Available Comfort Measures Achieves Acceptable Comfort/Pain Level as Determined by Patient/Condit Maintain Comfort Level Allowing Patient to Fully Participate in Rehab Progression Toward Outcome/Goals Progressing Outcome/Goals Met Comment pt sleeping Respiratory - Improve/Maintain Start: 09/11/17 19:23 Freq: QSHIFT Status: Active Target: Protocol: Activity Type Activity Date Activity User E-Sign Co-Sign Detail Recorded Client Recorded Date Recorded By Document 09/16/17 01:20 [id number] 09/16/17 01:20 [id number] 09/16/17 01:20 PMRU Outcome: Respiratory Does Patient Have a Trach No Outcome/Goals Maintain/ Improve O2 Sat per MD Order Maintain/ Improve Activity Tolerance Progression Toward Outcome/Goals Progressing Safety- Improve/Maintain Start: 09/11/17 19:23 Freq: QSHIFT Status: Active Target: Protocol: Activity Type Activity Date Activity User E-Sign Co-Sign Detail Recorded Client Recorded Date Recorded By Document 09/16/17 01:20 [id number] 09/16/17 01:20 [id number] 09/16/17 01:20 PMRU Outcome: Safety Outcome/Goals Remain Free of Injury or Harm Cooperates with Safety Measures for Least Restrictive Environment Prevent Falls/ Injury Progression Toward Outcome/Goals Progressing Skin- Improve/Maintain Start: 09/11/17 19:23 Freq: QSHIFT Status: Active Target: Protocol: Activity Type Activity Date Activity User E-Sign Co-Sign Detail Recorded Client Recorded Date Recorded By Document 09/16/17 01:20 [id number] 09/16/17 01:20 [id number] 09/16/17 01:20 PMRU Outcome: Skin Skin Risk Level Medium Skin Orders Spenco Boots Heels Off Bed Turn/Position q2hr While in Bed Outcome/Goals Maintain/ Improve Skin Intergrity Surgical Incisions Healing Progression Toward Outcome/Goals Progressing Medicine Note: Length of Stay: 1 day Anticipated Discharge Destination: Home Tentative Discharge Date: 09/17/17 Discharged to: home
--- NOTE | 2017-09-16 17:53 | PN ---
Progress Note - Progress Note Date of Service: 09/16/17 Note: Franco visited. He was discussed in interdisciplinary team rounds. He is ready for discharge tomorrow. Current Medications Acetaminophen (Tylenol Tab*) 650 mg PO Q6H PRN PRN Reason: FEVER/PAIN Hydrocodone Bitart/Acetaminophen ([place] 5-325 Tab*) 1 tab PO Q4H PRN PRN Reason: PAIN Last Admin: 09/11/17 23:02 Dose: 1 tab Hydrocodone Bitart/Acetaminophen ([place] 5-325 Tab*) 2 tab PO Q4H PRN PRN Reason: PAIN - SEVERE Last Admin: 09/16/17 05:16 Dose: 2 tab Aspirin (Aspirin Tab*) 325 mg PO DAILY [facility] Bisacodyl (Dulcolax Supp*) 10 mg [place] DAILY PRN PRN Reason: CONSTIPATION Docusate Sodium (Colace Cap*) 100 mg PO BID [facility] Last Admin: 09/16/17 10:24 Dose: 100 mg Duloxetine HCl (Cymbalta Cap*) 90 mg PO DAILY [facility] Heparin Sodium (Porcine) (Heparin Vial(*)) 5,000 units SUBCUT Q8HR [facility] Last Admin: 09/16/17 14:26 Dose: 5,000 units Magnesium Hydroxide (Milk Of Magnesia Liq*) 30 ml PO Q6H PRN PRN Reason: CONSTIPATION Methocarbamol (Robaxin Tab*) 750 mg PO Q6H PRN PRN Reason: SPASMS Last Admin: 09/14/17 11:23 Dose: 750 mg Mometasone Furoate/Formoterol Fumar (Dulera 200/5 Mdi*) 2 puff INH BID [facility] Last Admin: 09/16/17 10:25 Dose: 2 puff Nicotine (Nicotine Inhaler*) 10 mg INH Q2H PRN PRN Reason: CRAVING Last Admin: 09/11/17 15:31 Dose: 10 mg Nicotine (Nicotine Patch 21 Mg/24 Hr*) 1 patch TRANSDERM DAILY@0800 [facility] Last Admin: 09/16/17 12:16 Dose: 1 patch Pharmacy Profile Note (Nicotine Patch Removal Note*) 1 note FOLLOW UP 2100 [facility] Last Admin: 09/15/17 21:06 Dose: Not Given Polyvinyl Alcohol (Polyvinyl Alcohol 1.4% Opth*) 1 drop BOTH EYES Q2H PRN PRN Reason: DRY EYE Last Admin: 09/12/17 22:40 Dose: 1 drop Quetiapine Fumarate (Seroquel Tab*) 50 mg PO [address] Last Admin: 09/15/17 20:04 Dose: 50 mg Senna (Senokot Tab*) 2 tab PO BEDTIME PRN PRN Reason: CONSTIPATION Last Admin: 09/12/17 21:06 Dose: 2 tab Vital Signs Temp Pulse Resp BP Pulse Ox 98.4 F 76 18 111/59 97 09/16/17 16:03 09/16/17 16:03 09/16/17 16:03 09/16/17 16:03 09/16/17 16:03 EXAM: LUNGS: Scattered wheezes HEART: Reg rhythm ABDOMEN: Soft, +BS EXTREMITIES: left hip wound clean ASSESSMENT/PLAN: 1. Left Hip Fracture: PT/OT. 2. COPD: Dulera. May need Spiriva 3. Analgesia: Stopping MS Contin will continue [place]. 4. Nicotine Addiction: Nicotine Patch 5. Advanced directives: has MOLST. Wants full Code 6. DVT Prophylaxis: Heparin S/Q. Home on ASA
[2017-09-16] MEDS: QUEtiapine TAB* 25 MG PO SCH (21:12)
[2017-09-16] MEDS: Artificial Tears* 15 ML BTL BOTH EYES PRN (21:29)
[2017-09-16] MEDS: Nicotine Patch Removal NOTE FOLLOW UP SCH (21:30)
[2017-09-17] MEDS: HYDROcodone/ACETAMIN 5-325 MG* 1 TAB PO PRN (05:43)
[2017-09-17] MEDS: Heparin VIAL(*) 5000 UNITS/ML VIAL (FIVE THOUSAND) SUBCUT SCH (05:44)
[2017-09-17 05:54] VITALS: BP 106/57
[2017-09-17] MEDS ORDERED: Aspirin TAB* 325 MG PO SCH (09:00)
[2017-09-17] MEDS ORDERED: DULoxetine DR CAP* 30 MG CAP.DR PO SCH (09:00)
[2017-09-17] MEDS: Docusate CAP* 100 MG PO SCH (09:15)
[2017-09-17] MEDS: Mometasone/Formoter 200/5 MDI INH SCH (09:15)
[2017-09-17] MEDS: Nicotine PATCH 21 MG/24 HR* PATCH TRANSDERM SCH (09:16)
--- NOTE | 2017-09-18 10:11 | DS ---
CC: Dr. Yonatan Barroso, [facility]* DISCHARGE SUMMARY: DATE OF ADMISSION: 09/11/17 DATE OF DISCHARGE: 09/17/17 DISCHARGE DIAGNOSES: 1. Left hip fracture. 2. Nicotine addiction. 3. Coronary artery disease. 4. History of hepatitis C. 5. Depression. 6. Peripheral neuropathy. 7. Alcoholism, remote. HISTORY OF ILLNESS AND HOSPITAL COURSE: For complete history of the events leading up to his rehab stay, please see the history and physical dictated by me on 09/11/17. While on the rehab unit, the patient's pain was in good control. His long-acting morphine, MS Contin, was tapered off while it was on the rehab unit. He continued to receive hydrocodone, but did get good relief. The patient was restarted on his psychiatric medicines including Cymbalta 90 mg daily in addition to Seroquel 50 mg at bedtime. The patient was otherwise medically stable. The patient was seen by both physical and occupational therapy and made good gains with both disciplines. With physical therapy at the time of admission, the patient required contact guard to do transfers, able to ambulate with contact guard with about 40 feet. With occupational therapy, he required max assist for lower body dressing, supervision for upper body dressing, min assist for bathing, toileting was contact guard and to transfers with contact guard. By the time of discharge, the patient was independent in transfers, independent ambulation. He was able to ambulate 150 feet with a rolling walker. He was independent in his activities of daily living. He was discharged home 09/17/17. DISCHARGE DIET: Regular. DISCHARGE MEDICATIONS: Include: 1. Aspirin 325 mg daily. 2. Cymbalta 90 mg daily. 3. [place] 5/325, 1 to 2 tablets every 4 hours as needed. 4. Dulera 200/5, 2 puffs twice daily. 5. Seroquel 50 mg at bedtime. SERVICES AFTER DISCHARGE: Through the visiting nurse service. The patient will have home nursing, home physical therapy and homehealth aide. He is 50% weightbearing on the left lower extremity. He will also follow up with Dr. Yonatan Barroso at the [facility] and Dr. Shoaib Velarde in 1 to 2 weeks for suture removal. [id number]/[facility] #: [id number] [facility]
== END 2017-09-17 11:40 | disposition home or self-care (01) | DRG 860 ==
LOC: PMRU 10:41
PROVIDERS: ADMIT Physical Medicine & Rehabilitation; ATTEND Physical Medicine & Rehabilitation
PROC: F07Z5ZZ Bed Mobility Treatment (ICD-10-PCS; principal; 2017-09-11)
PROC: F07Z9ZZ Gait Training/Functional Ambulation Treatment (ICD-10-PCS; 2017-09-11)
PROC: F07Z8ZZ Transfer Training Treatment (ICD-10-PCS; 2017-09-11)
PROC: F08Z0ZZ Bathing/Showering Techniques Treatment (ICD-10-PCS; 2017-09-11)
PROC: F08Z1ZZ Dressing Techniques Treatment (ICD-10-PCS; 2017-09-11)
PROC: F08Z3ZZ Feeding/Eating Treatment (ICD-10-PCS; 2017-09-11)
DX: S72.142D Displaced intertrochanteric fracture of left femur, subsequent encounter for closed fracture with routine healing (principal); G62.9 Polyneuropathy, unspecified; W18.30XD Fall on same level, unspecified, subsequent encounter; J44.9 Chronic obstructive pulmonary disease, unspecified; F17.210 Nicotine dependence, cigarettes, uncomplicated; I25.10 Atherosclerotic heart disease of native coronary artery without angina pectoris; Z98.61 Coronary angioplasty status; F32.9 Major depressive disorder, single episode, unspecified; F10.21 Alcohol dependence, in remission; Z86.19 Personal history of other infectious and parasitic diseases; Z79.82 Long term (current) use of aspirin; Z79.899 Other long term (current) drug therapy; R20.0 Anesthesia of skin
CPT/HCPCS: 36415; 80053; 85025; 85610; 87641; 94640; 94760; A9270-GY; J1644

== ENCOUNTER 2019-03-22 09:33 | Inpatient (IN) | payer MEDICARE, OTHER ==
--- NOTE | 2019-03-22 09:44 | ED ---
Shortness of Breath - HPI Summary HPI Summary: The patient is a 63 y/o M arriving by ambulance to [facility] accompanied by neighbor with a chief complaint of sudden onset of SOB this morning. Per EMS, the patient had initial respiratory rate of 40, 95% O2 sat%, and bilateral rales , but he has since improved to RR of 24 with Duoneb and Dexamethasone in the ambulance. Most recent BP was 106/96 upon arrival. The patient is not currently in pain. He states that his happens when he has PNA, but he reports no recent dx of PNA. He additionally c/o productive cough with change in usual phlegm color. He denies fever, chills, erythema of eyes, sore throat, CP, abdominal pain, N/V, dysuria, hematuria, myalgia, edema, rash, or dizziness. He states he sleeps on one pillow at night. No O2 use at home. Hx of HTN, COPD, PNA. Surgical hx of left lung repair from pneumothorax. Heavy every day cigarette smoker, no EtOH, marijuana use. - History of Current Complaint Hx Obtained From: Patient, EMS Onset/Duration: Sudden Onset, Lasting Minutes, Still Present - improved Current Severity: Moderate Dyspnea At: Rest Aggravating Factors: Nothing Alleviating Factors: Bronchodilators - Duoneb and Dexamethasone in the ambulance , Oxygen Associated Signs & Symptoms: Cough (Productive) - new change in sputum color - Allergy/Home Medications Allergies/Adverse Reactions: Allergies Allergy/AdvReac Type Severity Reaction Status Date / Time No Known Allergies Allergy Verified 05/14/15 19:33 Home Medications: Home Medications Albuterol 2.5MG/3ML (0.083%)* [Ventolin 2.5 MG/3 ML NEB.AYO*] 2.5 mg INH QID PRN 03/22/19 [History Confirmed 03/22/19] Albuterol HFA INHALER* [Ventolin HFA Inhaler*] 2 puff INH QID PRN 03/22/19 [ History Confirmed 03/22/19] Aspirin EC TAB* [Ecotrin EC Low Dose 81 MG*] 81 mg PO DAILY 03/22/19 [History Confirmed 03/22/19] Atenolol TAB* [Tenormin TAB* 25 MG] 25 mg PO DAILY 03/22/19 [History Confirmed 03/22/19] Calcium Carbonate/Vitamin D3 [Calcium Carbonate/Vitamin] 1 tab PO BID 03/22/19 [ History Confirmed 03/22/19] DULoxetine DR CAP* [Cymbalta CAP*] 30 mg PO DAILY 03/22/19 [History Confirmed ] Gabapentin CAP(*) [Neurontin 300 CAP(*)] 1,200 mg PO TID 03/22/19 [History Confirmed 03/22/19] Multivitamins/Minerals TAB* [Theragran/minerals TAB*] 1 tab PO DAILY 03/22/19 [ History Confirmed 03/22/19] PMH/Surg Hx/FS Hx/Imm Hx Endocrine/Hematology History: Denies: Hx Diabetes Cardiovascular History: Reports: Hx Hypertension Denies: Hx Congestive Heart Failure Respiratory History: Reports: Hx Chronic Obstructive Pulmonary Disease (COPD) - long time smoker, Hx Pneumonia, Other Respiratory Problems/Disorders - current smoker GI History: Reports: Other GI Disorders - HEP C History: Denies: Hx Renal Disease Musculoskeletal History: Reports: Hx Back Problems - chronic lower back issues Sensory History: Denies: Hx Contacts or Glasses, Hx Hearing Aid Opthamlomology History: Denies: Hx Contacts or Glasses Neurological History: Reports: Other Neuro Impairments/Disorders - Pedal neuropathy, Aneurysm Psychiatric History: Reports: Hx Depression - Surgical History Surgery Procedure, Year, and Place: MANDIBLE FOR FX, LT LUNG REPAIR FOR PNEUMOTHORAX, tonsilectomy Hx Anesthesia Reactions: No Infectious Disease History: Reports: Hx Hepatitis, Hx of Known/Suspected MRSA - Family History Known Family History: Positive: Hypertension - Social History Alcohol Use: None Hx Substance Use: Yes Substance Use Type: Reports: Marijuana Hx Tobacco Use: Yes Smoking Status (MU): Heavy Every Day Tobacco Smoker Type: Cigarettes Have You Smoked in the Last Year: Yes Review of Systems Negative: Fever, Chills Negative: Erythema Negative: Sore Throat Negative: Chest Pain Positive: Shortness Of Breath, Cough - productive with new change in phlegm color Negative: Abdominal Pain, Vomiting, Nausea Negative: dysuria, hematuria Negative: Myalgia, Edema Negative: Rash Neurological: Other - NEGATIVE: dizziness All Other Systems Reviewed And Are Negative: Yes Physical Exam - Summary Physical Exam Summary: Constitutional: Well-developed, Well-nourished, Alert. (-) Distressed Skin: Warm, Dry HENT: Normocephalic; Atraumatic Eyes: Conjunctiva normal Neck: Musculoskeletal ROM normal neck. (-) JVD, (-) Stridor, (-) Tracheal deviation Cardio: Rhythm regular, rate normal, Heart sounds normal; Intact distal pulses; The pedal pulses are 2+ and symmetric. Radial pulses are 2+ and symmetric. (-) Murmur Pulmonary/Chest wall: Effort normal. (-) Respiratory distress, (+) Expiratory Wheezes, (-) Rales Abd: Soft, (-) tenderness, (-) Distension, (-) Guarding, (-) Rebound Musculoskeletal: (-) Edema Lymph: (-) Cervical adenopathy Neuro: Alert, Oriented x3 Psych: Mood and affect Normal Triage Information Reviewed: Yes Vital Signs Reviewed: Yes Diagnostics - Laboratory Result Diagrams: 03/22/19 10:18 03/22/19 10:18 Lab Statement: Any lab studies that have been ordered have been reviewed, and results considered in the medical decision making process. - Radiology CXR Radiology Interpretation Completed By: Radiologist Summary of Radiographic Findings: Hyperinflation. No active cardiopulmonary disease. ED physician has reviewed this report. - EKG 1044 Cardiac Rate: NL - 79 BPM EKG Rhythm: Sinus Rhythm Summary of EKG Findings: No STEMI. Re-Evaluation - Re-Evaluation First Eval Re-Evaluation Time: 12:35 Comment: The patient's symptoms have improved, but I advised that admission is best for his condition. He agrees with this plan. Course/Dx - Course Course Of Treatment: The patient is a 63 y/o M arriving by ambulance to [facility] accompanied by neighbor with a chief complaint of sudden onset of SOB this morning. Per EMS, the patient had initial respiratory rate of 40, 95% O2 sat%, and bilateral rales, but he has since improved to RR of 24 with Duoneb and Dexamethasone in the ambulance. Most recent BP was 106/96 upon arrival. The patient is not currently in pain. He states that his happens when he has PNA, but he reports no recent dx of PNA. He additionally c/o productive cough with change in usual phlegm color. He denies fever, chills, erythema of eyes, sore throat, CP, abdominal pain, N/V, dysuria, hematuria, myalgia, edema, rash, or dizziness. He states he sleeps on one pillow at night. Hx of HTN, COPD, PNA. Surgical hx of left lung repair from pneumothorax. Heavy every day cigarette smoker, no EtOH, marijuana use. Upon physical exam, the patient exhibits expiratory wheezes. EKG reveals NSR at 79 BPM. CXR impression: Hyperinflation. No active cardiopulmonary disease. I spoke with Dr. Noble, hospitalist, at 1240 , and she accepts the patient for admission. He is diagnosed with COPD exacerbation and hypoxemia. He agrees with and understands plan for admission. CCT of 35 minutes. - Diagnoses Provider Diagnoses: COPD exacerbation, Hypoxemia - Physician Notifications Discussed Care of Patient With: Jaqueline Noble - hospitalist Time Discussed With Above Provider: 12:40 Instructed by Provider To: Other - I discussed the case with Dr. Noble, and she accepts the patient for admission. - Critical Care Time Critical Care Time: 30-74 min - 35 minutes CCT Discharge - Sign-Out/Discharge Documenting (check all that apply): Patient Departure - Patient is accepted for admission by Dr. Noble. Patient Received Moderate/Deep Sedation with Procedure: No - Discharge Plan Condition: Stable Disposition: ADMITTED TO [facility] - Billing Disposition and Condition Condition: STABLE Disposition: Admitted to [facility] - Attestation Statements Document Initiated by Scribe: Yes Documenting Scribe: Tash Martinez Provider For Whom Scribe is Documenting (Include Credential): Dr. Toney Bertrand MD Scribe Attestation: Tash Lerma, scribed for Dr. Toney Bertrand MD on 03/22/19 at 1922. Status of Scribe Document: Ready
[2019-03-22 10:31] LABS: ABS Lymphocytes 0.7 10^3/ul (1.0-4.8); ABS Monocytes 0.7 10^3/ul (0-0.8); Eosinophil % 0.3 %; Hematocrit 38 % (42-52); Hemoglobin 12.9 g/dL (14.0-18.0); Lymphocyte % 6.9 %; Mean Corpuscular HGB Conc 34 g/dL (31-36); Mean Corpuscular Hemoglobin 29 pg (27-31); Mean Corpuscular Volume 87 fL (80-94); Mean Platelet Volume 7.5 fL (7.4-10.4); Platelet Count 219 10^3/uL (150-450); Red Blood Count 4.43 10^6 /uL (4.18-5.48); Red Cell Distribution Width 14 % (10-15); White Blood Count 10.5 10^3/uL (3.5-10.8)
[2019-03-22 10:44] LABS: Albumin 3.8 g/dL (3.2-5.2); Albumin/Globulin Ratio 1.2 (1-3); BUN/Creatinine Ratio 8.8 (8-20); Calcium 8.5 mg/dL (8.6-10.3); EGFR African American 117.4 (>60); Globulin 3.1 g/dL (2-4); Potassium 3.8 mmol/L (3.5-5.0); Total Bilirubin 0.5 mg/dL (0.2-1.0); Total Protein 6.9 g/dL (6.4-8.9)
[2019-03-22 10:46] LABS: Troponin I 0.01 ng/mL (<0.04)
[2019-03-22] MEDS ORDERED: Albuterol/Ipratropium NEB.SOL* Albuterol 2.5 MG/Ipratropium 0.5 MG 3 ML INH ONE (12:34)
[2019-03-22] MEDS ORDERED: Albuterol/Ipratropium NEB.SOL* Albuterol 2.5 MG/Ipratropium 0.5 MG 3 ML INH PRN (14:17)
[2019-03-22] MEDS ORDERED: Albuterol HFA INHALER* 8 gm MDI INH PRN (14:18)
[2019-03-22] MEDS ORDERED: Acetaminophen TAB* 325 MG PO PRN (14:20)
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
[2019-03-22] MEDS: Gabapentin CAP(*) 300 MG PO SCH (20:11)
[2019-03-22] MEDS: Heparin VIAL(*) 5000 UNITS/ML VIAL (FIVE THOUSAND) SUBCUT SCH (20:12)
[2019-03-22] MEDS: hydrOXYzine HCL TAB* 25 MG PO PRN (20:12)
[2019-03-22] MEDS: Nicotine PATCH 21 MG/24 HR* PATCH TRANSDERM SCH (20:29)
[2019-03-23] MEDS: Heparin VIAL(*) 5000 UNITS/ML VIAL (FIVE THOUSAND) SUBCUT SCH ×3 (05:21→21:03)
[2019-03-23] MEDS: hydrOXYzine HCL TAB* 25 MG PO PRN (07:38)
[2019-03-23] MEDS: Atenolol TAB* 25 MG PO SCH (07:40)
[2019-03-23] MEDS: Multivitamins/Minerals TAB PO SCH (07:40)
[2019-03-23] MEDS: DULoxetine DR CAP* 30 MG CAP.DR PO SCH (07:40)
[2019-03-23] MEDS: Aspirin EC TAB* 81 MG TAB.EC PO SCH (07:40)
[2019-03-23] MEDS: Gabapentin CAP(*) 300 MG PO SCH ×3 (07:40→21:03)
[2019-03-23] MEDS: Nicotine PATCH 21 MG/24 HR* PATCH TRANSDERM SCH (07:42)
[2019-03-23] MEDS: Nicotine Patch Removal NOTE PATCH OFF SCH ×2 (07:42→21:05)
[2019-03-23] MEDS ORDERED: predniSONE TAB* 20 MG PO SCH (09:00)
[2019-03-23] MEDS ORDERED: Nicotine* 2MG (FRUIT FLAVOR) GUM PO PRN (09:54)
[2019-03-23] MEDS ORDERED: methylPREDNISolone 125 MG* 2 ML VIAL IV ONE ×2 (10:10→10:47)
[2019-03-23] MEDS: guaiFENesin ER TAB 600 MG PO SCH ×2 (11:22→21:02)
[2019-03-23] MEDS: Azithromycin 500 mg/250 ml NS 500 MG/250 ML BAG IVPB SCH (12:13)
[2019-03-23] MEDS: Albuterol/Ipratropium NEB.SOL* Albuterol 2.5 MG/Ipratropium 0.5 MG 3 ML INH SCH ×2 (13:02→15:03)
[2019-03-23] MEDS: hydrOXYzine HCL TAB* 25 MG PO SCH ×2 (14:05→19:34)
--- NOTE | 2019-03-23 17:12 | PN ---
Subjective Date of Service: 03/23/19 Interval History: Patient seen and examined. Per RN, patient became very agitated and felt like he was having a panic attack brought on by coughing and SOB. Patient was reporting symptoms of air hunger with increased cough and sputum production. RN states that O2 sat remained stable on O2 and RR was slightly increased. At this time, patient states he feels his anxiety brings on his "attacks" of shortness of breath. Denies fevers or chills, no chest pain. Course cough with yellow productive sputum. Objective Active Medications: Acetaminophen (Tylenol Tab*) 650 mg PO Q6H PRN PRN Reason: PAIN Last Admin: 03/22/19 20:12 Dose: 650 mg Albuterol (Ventolin Hfa Inhaler*) 2 puff INH QID PRN PRN Reason: SHORTNESS OF BREATH Albuterol/Ipratropium (Duoneb (Albuterol 2.5 Mg/Ipratropium 0.5 Mg)) 1 neb INH [id number] AWAKE [facility] Last Admin: 03/23/19 15:03 Dose: 1 neb Aspirin (Aspirin Ec Tab*) 81 mg PO DAILY [facility] Last Admin: 03/23/19 07:40 Dose: 81 mg Atenolol (Tenormin Tab*) 25 mg PO DAILY [facility] Last Admin: 03/23/19 07:40 Dose: 25 mg Duloxetine HCl (Cymbalta Cap*) 30 mg PO DAILY [facility] Last Admin: 03/23/19 07:40 Dose: 30 mg Gabapentin (Neurontin Cap(*)) 1,200 mg PO TID [facility] Last Admin: 03/23/19 14:11 Dose: 1,200 mg Guaifenesin (Mucinex*) 1,200 mg PO BID [facility] Last Admin: 03/23/19 11:22 Dose: 1,200 mg Heparin Sodium (Porcine) (Heparin Vial(*)) 5,000 units SUBCUT Q8HR [facility] Last Admin: 03/23/19 14:11 Dose: 5,000 units Hydroxyzine HCl (Atarax Tab*) 25 mg PO TID [facility] Last Admin: 03/23/19 14:05 Dose: Not Given Azithromycin (Zithromax 500 Mg/250 Ml) 500 mg in 250 mls @ 250 mls/hr IVPB Q24H [facility] Last Admin: 03/23/19 12:13 Dose: 250 mls/hr Lorazepam (Ativan Tab(*)) 0.5 mg PO Q6H PRN PRN Reason: AGITATION Methylprednisolone Sodium Succinate (Solu-Medrol 40 Mg) 40 mg IV Q8H [facility] Multivitamins/Minerals (Theragran/Minerals Tab*) 1 tab PO DAILY [facility] Last Admin: 03/23/19 07:40 Dose: 1 tab Nicotine (Nicotine Patch 21 Mg/24 Hr*) 1 patch TRANSDERM DAILY [facility] Last Admin: 03/23/19 07:42 Dose: 1 patch Nicotine Polacrilex (Nicotine Gum*) 2 mg PO Q2H PRN PRN Reason: CRAVING Pharmacy Profile Note (Nicotine Patch Removal Note*) 1 note PATCH OFF 2099 [facility] Last Admin: 03/23/19 07:42 Dose: 1 note Vital Signs - 8 hr 03/23/19 03/23/19 03/23/19 09:26 13:02 14:11 Pulse Rate 87 Respiratory 24 16 18 Rate O2 Sat by Pulse 94 Oximetry 03/23/19 15:04 Pulse Rate 83 Respiratory 16 Rate O2 Sat by Pulse 97 Oximetry Oxygen Devices in Use Now: Nasal Cannula Appearance: alert, disheveled, moderate distress Eyes: No Scleral Icterus, PERRLA Ears/Nose/Mouth/Throat: Mucous Membranes Moist, - - poor dentition Neck: NL Appearance and Movements; NL JVP, Trachea Midline Respiratory: - - diminished throughout lung porter with poor air entry bilaterally Cardiovascular: NL Sounds; No Murmurs; No JVD Abdominal: NL Sounds; No Tenderness; No Distention Extremities: No Edema, - - clubbing upper extremity fingers Skin: No Rash or Ulcers Nutrition: Taking PO's Result Diagrams: 03/22/19 10:18 03/22/19 10:18 Microbiology and Other Data: Microbiology 03/22/19 10:18 Aerobic Blood Culture - Preliminary Blood Venous No Growth Day 1 Anaerobic Blood Culture - Preliminary No Growth Day 1 03/22/19 10:18 Aerobic Blood Culture - Preliminary Blood Venous No Growth Day 1 Anaerobic Blood Culture - Preliminary No Growth Day 1 03/22/19 14:20 Nasal Screen MRSA (PCR) - Final Nasal Mrsa Not Detected Diagnostic Imaging: Patient Name: AQUILES JUARES Medical Record#: [id number] Ordering Physician: Toney Bertrand MD Acct.#: [id number] : 1955 Age: 63 Sex: M Location: EMERGENCY DEPARTMENT Exam Date: 03/22/19940 ADM Status: REG ER Order Information: CHEST AP OR PORT Accession Number: [id number] CPT: 29040 HISTORY: cough sob COMPARISONS: October 25, 2013 VIEWS: 1: frontal AP view of the chest at 10:34 AM FINDINGS: LINES AND TUBES: None. CARDIOMEDIASTINAL SILHOUETTE: The cardiomediastinal silhouette is normal for portable technique. PLEURA: The costophrenic angles are sharp. No pleural abnormalities are noted. LUNG PARENCHYMA: There is hyperinflation. ABDOMEN: The upper abdomen is clear. There is no subphrenic gas. BONES AND SOFT TISSUES: No bone or soft tissue abnormalities are noted. IMPRESSION: HYPERINFLATION. NO ACTIVE CARDIOPULMONARY DISEASE. Assess/Plan/Problems-Billing Assessment: Mr. Juares is a 63 year old male with history of tobacco abuse and COPD that presented to the ED with SOB and admitted with COPD exacerbation. - Patient Problems (1) COPD with exacerbation Code(s): J44.1 - CHRONIC OBSTRUCTIVE PULMONARY DISEASE W (ACUTE) EXACERBATION SNOMED Code(s): 784202056 Comment: - Severe exacerbation with hypoxic respiratory failure - Continue oxygen at 2LNC - Change to IV solumedrol, 60mg IV now and continue 40mg IV Q8h - Scheduled duonebs Q4h with flutter valve, inhalers, add mucinex, needs aggressive pulmonary toilet - Added azithromycin today and will obtain sputum culture (2) Anxiety Code(s): F41.9 - ANXIETY DISORDER, UNSPECIFIED SNOMED Code(s): 14554640 Comment: - Patient reports severe panic attacks with air hunger - Air hunger is likely 2/2 mucous plugging - Continue atarax PRN, will add ativan as well (3) CAD (coronary artery disease) Code(s): I25.10 - ATHSCL HEART DISEASE OF [place] CORONARY ARTERY W/O ANG PCTRS SNOMED Code(s): 20740230 Comment: - Stable - Continue ASA (4) DVT prophylaxis Code(s): SKM7181 - SNOMED Code(s): 968102085 Comment: - HSQ (5) DNR (do not resuscitate) Status and Disposition: Inpatient for IV steroids and O2.
[2019-03-23] MEDS: LORazepam TAB(*) 0.5 MG PO PRN (19:31)
[2019-03-23] MEDS: methylPREDNISolone SOD 40 MG* 1 ML VIAL IV SCH (19:32)
[2019-03-23] MEDS: Albuterol/Ipratropium NEB.SOL* Albuterol 2.5 MG/Ipratropium 0.5 MG 3 ML INH PRN (20:17)
[2019-03-24] MEDS: methylPREDNISolone SOD 40 MG* 1 ML VIAL IV SCH ×3 (04:01→19:12)
[2019-03-24] MEDS: Heparin VIAL(*) 5000 UNITS/ML VIAL (FIVE THOUSAND) SUBCUT SCH ×3 (05:54→21:22)
[2019-03-24] MEDS: LORazepam TAB(*) 0.5 MG PO PRN ×2 (05:54→19:12)
[2019-03-24] MEDS: Multivitamins/Minerals TAB PO SCH (09:03)
[2019-03-24] MEDS: Gabapentin CAP(*) 300 MG PO SCH ×3 (09:03→21:20)
[2019-03-24] MEDS: Atenolol TAB* 25 MG PO SCH (09:03)
[2019-03-24] MEDS: Aspirin EC TAB* 81 MG TAB.EC PO SCH (09:03)
[2019-03-24] MEDS: guaiFENesin ER TAB 600 MG PO SCH ×2 (09:03→21:21)
[2019-03-24] MEDS: DULoxetine DR CAP* 30 MG CAP.DR PO SCH (09:03)
[2019-03-24] MEDS: Nicotine PATCH 21 MG/24 HR* PATCH TRANSDERM SCH (09:03)
[2019-03-24] MEDS: hydrOXYzine HCL TAB* 25 MG PO SCH ×3 (09:04→21:17)
[2019-03-24] MEDS: Azithromycin 500 mg/250 ml NS 500 MG/250 ML BAG IVPB SCH (11:12)
--- NOTE | 2019-03-24 16:03 | PN ---
Subjective Date of Service: 03/24/19 Interval History: Patient seen and examined. States he feels some improvement in his anxiety and his acute SOB. Still with copious sputum production and cough. Denies fevers or chills. No acute overnight events noted. Objective Active Medications: Acetaminophen (Tylenol Tab*) 650 mg PO Q6H PRN PRN Reason: PAIN Last Admin: 03/22/19 20:12 Dose: 650 mg Albuterol (Ventolin Hfa Inhaler*) 2 puff INH QID PRN PRN Reason: SHORTNESS OF BREATH Albuterol/Ipratropium (Duoneb (Albuterol 2.5 Mg/Ipratropium 0.5 Mg)) 1 neb INH [id number] AWAKE PRN PRN Reason: SOB/WHEEZING Last Admin: 03/23/19 20:17 Dose: 1 neb Aspirin (Aspirin Ec Tab*) 81 mg PO DAILY [facility] Last Admin: 03/24/19 09:03 Dose: 81 mg Atenolol (Tenormin Tab*) 25 mg PO DAILY [facility] Last Admin: 03/24/19 09:03 Dose: 25 mg Duloxetine HCl (Cymbalta Cap*) 30 mg PO DAILY [facility] Last Admin: 03/24/19 09:03 Dose: 30 mg Gabapentin (Neurontin Cap(*)) 1,200 mg PO TID [facility] Last Admin: 03/24/19 14:17 Dose: 1,200 mg Guaifenesin (Mucinex*) 1,200 mg PO BID [facility] Last Admin: 03/24/19 09:03 Dose: 1,200 mg Heparin Sodium (Porcine) (Heparin Vial(*)) 5,000 units SUBCUT Q8HR [facility] Last Admin: 03/24/19 14:17 Dose: 5,000 units Hydroxyzine HCl (Atarax Tab*) 25 mg PO TID [facility] Last Admin: 03/24/19 14:20 Dose: Not Given Azithromycin (Zithromax 500 Mg/250 Ml) 500 mg in 250 mls @ 250 mls/hr IVPB Q24H [facility] Last Admin: 03/24/19 11:12 Dose: 250 mls/hr Lorazepam (Ativan Tab(*)) 0.5 mg PO Q6H PRN PRN Reason: AGITATION Last Admin: 03/24/19 05:54 Dose: 0.5 mg Methylprednisolone Sodium Succinate (Solu-Medrol 40 Mg) 40 mg IV Q8H [facility] Last Admin: 03/24/19 11:47 Dose: 40 mg Multivitamins/Minerals (Theragran/Minerals Tab*) 1 tab PO DAILY [facility] Last Admin: 03/24/19 09:03 Dose: 1 tab Nicotine (Nicotine Patch 21 Mg/24 Hr*) 1 patch TRANSDERM DAILY [facility] Last Admin: 03/24/19 09:03 Dose: 1 patch Nicotine Polacrilex (Nicotine Gum*) 2 mg PO Q2H PRN PRN Reason: CRAVING Pharmacy Profile Note (Nicotine Patch Removal Note*) 1 note PATCH OFF 2100 [facility] Last Admin: 03/23/19 21:05 Dose: Not Given Vital Signs - 8 hr 03/24/19 03/24/19 03/24/19 08:00 08:15 08:16 Temperature Pulse Rate 76 Respiratory 18 18 Rate Blood Pressure (mmHg) O2 Sat by Pulse 95 95 Oximetry 03/24/19 03/24/19 03/24/19 08:30 09:00 09:03 Temperature 97.5 F Pulse Rate 64 Respiratory 18 16 20 Rate Blood Pressure 114/56 (mmHg) O2 Sat by Pulse Oximetry 03/24/19 03/24/19 03/24/19 11:30 11:39 14:17 Temperature 97.7 F Pulse Rate 62 Respiratory 18 16 18 Rate Blood Pressure 115/68 (mmHg) O2 Sat by Pulse 98 Oximetry 03/24/19 15:00 Temperature 97.8 F Pulse Rate 64 Respiratory 16 Rate Blood Pressure 109/61 (mmHg) O2 Sat by Pulse 91 Oximetry Oxygen Devices in Use Now: Nasal Cannula Appearance: alert, NAD Eyes: No Scleral Icterus, PERRLA Ears/Nose/Mouth/Throat: Mucous Membranes Moist, - - poor dentition Neck: NL Appearance and Movements; NL JVP, Trachea Midline Respiratory: - - poor air entry bilaterally, pigeon chest, decreased breath sounds throughout Cardiovascular: NL Sounds; No Murmurs; No JVD, RRR, No Edema Abdominal: NL Sounds; No Tenderness; No Distention Neurological: Alert and Oriented x 3, NL Sensation Nutrition: Taking PO's Result Diagrams: 03/22/19 10:18 03/22/19 10:18 Microbiology and Other Data: Microbiology 03/22/19 10:18 Aerobic Blood Culture - Preliminary Blood Venous No Growth Day 1 Anaerobic Blood Culture - Preliminary No Growth Day 1 03/22/19 10:18 Aerobic Blood Culture - Preliminary Blood Venous No Growth Day 1 Anaerobic Blood Culture - Preliminary No Growth Day 1 03/22/19 14:20 Nasal Screen MRSA (PCR) - Final Nasal Mrsa Not Detected Diagnostic Imaging: Patient Name: AQUILES JUARES Medical Record#: [id number] Ordering Physician: Toney Bertrand MD Acct.#: [id number] : 1955 Age: 63 Sex: M Location: EMERGENCY DEPARTMENT Exam Date: 03/22/19940 ADM Status: REG ER Order Information: CHEST AP OR PORT Accession Number: [id number] CPT: 38777 HISTORY: cough sob COMPARISONS: October 25, 2013 VIEWS: 1: frontal AP view of the chest at 10:34 AM FINDINGS: LINES AND TUBES: None. CARDIOMEDIASTINAL SILHOUETTE: The cardiomediastinal silhouette is normal for portable technique. PLEURA: The costophrenic angles are sharp. No pleural abnormalities are noted. LUNG PARENCHYMA: There is hyperinflation. ABDOMEN: The upper abdomen is clear. There is no subphrenic gas. BONES AND SOFT TISSUES: No bone or soft tissue abnormalities are noted. IMPRESSION: HYPERINFLATION. NO ACTIVE CARDIOPULMONARY DISEASE. Assess/Plan/Problems-Billing Assessment: Mr. Juares is a 63 year old male with history of tobacco abuse and COPD that presented to the ED with SOB and admitted with COPD exacerbation. - Patient Problems (1) COPD with exacerbation Code(s): J44.1 - CHRONIC OBSTRUCTIVE PULMONARY DISEASE W (ACUTE) EXACERBATION SNOMED Code(s): 488852197 Comment: - Severe exacerbation with hypoxic respiratory failure - Continue oxygen at 2LNC - Continue solumedrol 40mg IV Q8h - Scheduled duonebs Q4h with flutter valve, inhalers, add mucinex, needs aggressive pulmonary toilet - Continue azithromycin and follow sputum cultures - Will need home O2 qualifier before discharge (2) Anxiety Code(s): F41.9 - ANXIETY DISORDER, UNSPECIFIED SNOMED Code(s): 42146271 Comment: - Patient reports severe panic attacks with air hunger - Air hunger is likely 2/2 mucous plugging - Continue atarax PRN and ativan - Given severity of COPD, patient will likely benefit from anxiolytics at discharge and should continue to follow up with this at the [facility] (3) CAD (coronary artery disease) Code(s): I25.10 - ATHSCL HEART DISEASE OF [place] CORONARY ARTERY W/O ANG PCTRS SNOMED Code(s): 36691974 Comment: - Stable - Continue ASA (4) DVT prophylaxis Code(s): WWZ8949 - SNOMED Code(s): 789380540 Comment: - HSQ (5) DNR (do not resuscitate) Status and Disposition: Inpatient for IV steroids and O2.
[2019-03-24] MEDS: Nicotine Patch Removal NOTE PATCH OFF SCH (21:17)
[2019-03-25] MEDS: Albuterol/Ipratropium NEB.SOL* Albuterol 2.5 MG/Ipratropium 0.5 MG 3 ML INH PRN (01:32)
[2019-03-25] MEDS: methylPREDNISolone SOD 40 MG* 1 ML VIAL IV SCH ×2 (04:08→16:37)
[2019-03-25] MEDS: LORazepam TAB(*) 0.5 MG PO PRN ×2 (05:48→20:33)
[2019-03-25] MEDS: Heparin VIAL(*) 5000 UNITS/ML VIAL (FIVE THOUSAND) SUBCUT SCH ×3 (05:51→20:55)
[2019-03-25 06:55] LABS: ABS Lymphocytes 1.1 10^3/ul (1.0-4.8); ABS Monocytes 0.6 10^3/ul (0-0.8); ABS Neutrophils 10.7 10^3/ul (1.5-7.7); Hematocrit 40 % (42-52); Hemoglobin 13.3 g/dL (14.0-18.0); Lymphocyte % 8.8 %; Mean Corpuscular HGB Conc 34 g/dL (31-36); Mean Corpuscular Hemoglobin 29 pg (27-31); Mean Corpuscular Volume 87 fL (80-94); Mean Platelet Volume 7.5 fL (7.4-10.4); Platelet Count 308 10^3/uL (150-450); Red Blood Count 4.54 10^6 /uL (4.18-5.48); Red Cell Distribution Width 14 % (10-15); White Blood Count 12.3 10^3/uL (3.5-10.8)
[2019-03-25 07:07] LABS: BUN/Creatinine Ratio 22.4 (8-20); EGFR African American 144.1 (>60); EGFR Non-African American 119.1 (>60); Potassium 4.5 mmol/L (3.5-5.0)
[2019-03-25] MEDS: Nicotine PATCH 21 MG/24 HR* PATCH TRANSDERM SCH (09:50)
[2019-03-25] MEDS: Multivitamins/Minerals TAB PO SCH (09:50)
[2019-03-25] MEDS: hydrOXYzine HCL TAB* 25 MG PO SCH ×3 (09:51→20:55)
[2019-03-25] MEDS: DULoxetine DR CAP* 30 MG CAP.DR PO SCH (09:51)
[2019-03-25] MEDS: guaiFENesin ER TAB 600 MG PO SCH ×2 (09:51→20:53)
[2019-03-25] MEDS: Aspirin EC TAB* 81 MG TAB.EC PO SCH (09:51)
[2019-03-25] MEDS: Gabapentin CAP(*) 300 MG PO SCH ×3 (09:51→20:53)
[2019-03-25] MEDS: Atenolol TAB* 25 MG PO SCH (09:52)
[2019-03-25] MEDS: Azithromycin 500 mg/250 ml NS 500 MG/250 ML BAG IVPB SCH (10:58)
--- NOTE | 2019-03-25 16:11 | PN ---
Subjective Date of Service: 03/25/19 Interval History: Resting in bed on assessment. [address] Reports occasional sob, but only at night. Denies sob with exertion or rest (during the day). Continues to have occasional productive cough. Denies fever, chills, cp, palpitations, nausea, vomiting, diarrhea. Objective Active Medications: Acetaminophen (Tylenol Tab*) 650 mg PO Q6H PRN PRN Reason: PAIN Last Admin: 03/22/19 20:12 Dose: 650 mg Albuterol (Ventolin Hfa Inhaler*) 2 puff INH QID PRN PRN Reason: SHORTNESS OF BREATH Albuterol/Ipratropium (Duoneb (Albuterol 2.5 Mg/Ipratropium 0.5 Mg)) 1 neb INH [id number] AWAKE PRN PRN Reason: SOB/WHEEZING Last Admin: 03/25/19 01:32 Dose: 1 neb Aspirin (Aspirin Ec Tab*) 81 mg PO DAILY [facility] Last Admin: 03/25/19 09:51 Dose: 81 mg Atenolol (Tenormin Tab*) 25 mg PO DAILY [facility] Last Admin: 03/25/19 09:52 Dose: Not Given Duloxetine HCl (Cymbalta Cap*) 30 mg PO DAILY [facility] Last Admin: 03/25/19 09:51 Dose: 30 mg Gabapentin (Neurontin Cap(*)) 1,200 mg PO TID [facility] Last Admin: 03/25/19 13:44 Dose: 1,200 mg Guaifenesin (Mucinex*) 1,200 mg PO BID [facility] Last Admin: 03/25/19 09:51 Dose: 1,200 mg Heparin Sodium (Porcine) (Heparin Vial(*)) 5,000 units SUBCUT Q8HR [facility] Last Admin: 03/25/19 13:45 Dose: 5,000 units Hydroxyzine HCl (Atarax Tab*) 25 mg PO TID [facility] Last Admin: 03/25/19 13:45 Dose: Not Given Azithromycin (Zithromax 500 Mg/250 Ml) 500 mg in 250 mls @ 250 mls/hr IVPB Q24H [facility] Last Admin: 03/25/19 10:58 Dose: 250 mls/hr Lorazepam (Ativan Tab(*)) 0.5 mg PO Q6H PRN PRN Reason: AGITATION Last Admin: 03/25/19 05:48 Dose: 0.5 mg Methylprednisolone Sodium Succinate (Solu-Medrol 40 Mg) 40 mg IV Q12H [facility] Multivitamins/Minerals (Theragran/Minerals Tab*) 1 tab PO DAILY [facility] Last Admin: 03/25/19 09:50 Dose: 1 tab Nicotine (Nicotine Patch 21 Mg/24 Hr*) 1 patch TRANSDERM DAILY [facility] Last Admin: 03/25/19 09:50 Dose: 1 patch Nicotine Polacrilex (Nicotine Gum*) 2 mg PO Q2H PRN PRN Reason: CRAVING Pharmacy Profile Note (Nicotine Patch Removal Note*) 1 note PATCH OFF 2100 [facility] Last Admin: 03/24/19 21:17 Dose: Not Given Vital Signs - 8 hr 03/25/19 03/25/19 03/25/19 09:51 10:09 12:46 Respiratory 22 18 16 Rate 03/25/19 13:44 Respiratory 18 Rate Oxygen Devices in Use Now: Nasal Cannula Appearance: Comfortable, NAD Eyes: No Scleral Icterus Ears/Nose/Mouth/Throat: Clear Oropharnyx, Mucous Membranes Moist Neck: NL Appearance and Movements; NL JVP Respiratory: Symmetrical Chest Expansion and Respiratory Effort, Clear to Auscultation Cardiovascular: NL Sounds; No Murmurs; No JVD, RRR, No Edema Abdominal: NL Sounds; No Tenderness; No Distention Lymphatic: No Cervical Adenopathy Extremities: No Edema Skin: No Rash or Ulcers Neurological: Alert and Oriented x 3 Nutrition: Taking PO's Result Diagrams: 03/25/19 06:14 03/25/19 06:14 Additional Lab and Data: Laboratory Results - last 24 hr 03/25/19 03/25/19 06:14 06:14 WBC 12.3 H RBC 4.54 Hgb 13.3 L Hct 40 L MCV 87 MCH 29 MCHC 34 RDW 14 Plt Count 308 MPV 7.5 Neut % (Auto) 86.6 Lymph % (Auto) 8.8 [place] % (Auto) 4.5 Eos % (Auto) 0.0 Baso % (Auto) 0.1 Absolute Neuts (auto) 10.7 H Absolute Lymphs (auto) 1.1 Absolute Monos (auto) 0.6 Absolute Eos (auto) 0.0 Absolute Basos (auto) 0.0 Absolute Nucleated RBC 0.0 Nucleated RBC % 0.0 Sodium 138 Potassium 4.5 Chloride 102 Carbon Dioxide 32 Anion Gap 4 BUN 15 Creatinine 0.67 Est GFR ( Amer) 144.1 Est GFR (Non-Af Amer) 119.1 BUN/Creatinine Ratio 22.4 H Glucose 127 H Calcium 9.0 Microbiology and Other Data: Microbiology 03/23/19 20:18 Sputum Expectorated Gram Stain - Final 03/23/19 20:18 Sputum Expectorated Sputum Culture - Preliminary Proteus Vulgaris 03/22/19 10:18 Blood Venous Aerobic Blood Culture - Preliminary No Growth Day 3 03/22/19 10:18 Blood Venous Anaerobic Blood Culture - Preliminary No Growth Day 3 03/22/19 10:18 Blood Venous Aerobic Blood Culture - Preliminary No Growth Day 3 03/22/19 10:18 Blood Venous Anaerobic Blood Culture - Preliminary No Growth Day 3 03/22/19 14:20 Nasal Nasal Screen MRSA (PCR) - Final Mrsa Not Detected Diagnostic Imaging: Patient Name: AQUILES JUARES Medical Record#: [id number] Ordering Physician: Toney Bertrand MD Acct.#: [id number] : 1955 Age: 63 Sex: M Location: EMERGENCY DEPARTMENT Exam Date: 03/22/19940 ADM Status: REG ER Order Information: CHEST AP OR PORT Accession Number: [id number] CPT: 76642 HISTORY: cough sob COMPARISONS: October 25, 2013 VIEWS: 1: frontal AP view of the chest at 10:34 AM FINDINGS: LINES AND TUBES: None. CARDIOMEDIASTINAL SILHOUETTE: The cardiomediastinal silhouette is normal for portable technique. PLEURA: The costophrenic angles are sharp. No pleural abnormalities are noted. LUNG PARENCHYMA: There is hyperinflation. ABDOMEN: The upper abdomen is clear. There is no subphrenic gas. BONES AND SOFT TISSUES: No bone or soft tissue abnormalities are noted. IMPRESSION: HYPERINFLATION. NO ACTIVE CARDIOPULMONARY DISEASE. Assess/Plan/Problems-Billing Assessment: Mr. Juares is a 63 year old male with history of tobacco abuse and COPD that presented to the ED with SOB and admitted with COPD exacerbation. - Patient Problems (1) COPD with exacerbation Comment: - COPD exacerbation with hypoxic respiratory failure - Improving - Currently at 1 L NC. Continue to titrate as tolerate. Ambulatory O2 ordered - Continue solumedrol 40mg IV Q8hr reduced to Q12hr due to improvement - Scheduled duonebs Q4h with flutter valve, inhalers, add mucinex, cont pulmonary toilet - Continue azithromycin - Proteus Vulgaris in sputum. Awaiting sensitivities (2) Anxiety Comment: - Previous provider reported patient reported severe panic attacks with air hunger which was suspected to be 2/2 mucous plugging - Continue atarax PRN and ativan - Given severity of COPD, patient will likely benefit from anxiolytics at discharge and should continue to follow up with this at the [facility] (3) CAD (coronary artery disease) Comment: - Stable - Continue ASA (4) DNR (do not resuscitate) (5) DVT prophylaxis Comment: - HSQ Status and Disposition: Inpatient for IV steroids and O2. Attending: Estrella Chairez
[2019-03-25] MEDS: Nicotine Patch Removal NOTE PATCH OFF SCH (20:55)
[2019-03-26] MEDS: Albuterol/Ipratropium NEB.SOL* Albuterol 2.5 MG/Ipratropium 0.5 MG 3 ML INH PRN ×2 (02:35→07:05)
[2019-03-26] MEDS: LORazepam TAB(*) 0.5 MG PO PRN ×2 (02:44→09:26)
[2019-03-26] MEDS: Heparin VIAL(*) 5000 UNITS/ML VIAL (FIVE THOUSAND) SUBCUT SCH (04:58)
[2019-03-26] MEDS: methylPREDNISolone SOD 40 MG* 1 ML VIAL IV SCH (04:58)
[2019-03-26 06:22] LABS: ABS Lymphocytes 2.3 10^3/ul (1.0-4.8); ABS Monocytes 1.4 10^3/ul (0-0.8); ABS Neutrophils 9.3 10^3/ul (1.5-7.7); Eosinophil % 0.1 %; Hematocrit 43 % (42-52); Hemoglobin 14.3 g/dL (14.0-18.0); Lymphocyte % 17.8 %; Mean Corpuscular HGB Conc 33 g/dL (31-36); Mean Corpuscular Hemoglobin 29 pg (27-31); Mean Corpuscular Volume 87 fL (80-94); Mean Platelet Volume 7.5 fL (7.4-10.4); Platelet Count 314 10^3/uL (150-450); Red Blood Count 4.96 10^6 /uL (4.18-5.48); Red Cell Distribution Width 14 % (10-15); White Blood Count 13.1 10^3/uL (3.5-10.8)
[2019-03-26 09:18] VITALS: BP 119/62
[2019-03-26] MEDS: Atenolol TAB* 25 MG PO SCH (09:25)
[2019-03-26] MEDS: Gabapentin CAP(*) 300 MG PO SCH (09:25)
[2019-03-26] MEDS: Nicotine PATCH 21 MG/24 HR* PATCH TRANSDERM SCH (09:25)
[2019-03-26] MEDS: hydrOXYzine HCL TAB* 25 MG PO SCH (09:26)
[2019-03-26] MEDS: DULoxetine DR CAP* 30 MG CAP.DR PO SCH (09:26)
[2019-03-26] MEDS: guaiFENesin ER TAB 600 MG PO SCH (09:26)
[2019-03-26] MEDS: Multivitamins/Minerals TAB PO SCH (09:26)
[2019-03-26] MEDS: Aspirin EC TAB* 81 MG TAB.EC PO SCH (09:26)
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
== END 2019-03-26 12:10 | disposition home or self-care (01) | DRG 190 ==
LOC: ED 09:33 → MED 14:15 → OBSVTOIN 03-23 14:00
PROVIDERS: ADMIT Internal Medicine; ATTEND Internal Medicine
DX: J44.1 Chronic obstructive pulmonary disease with (acute) exacerbation (principal); J96.01 Acute respiratory failure with hypoxia; F41.9 Anxiety disorder, unspecified; I25.10 Atherosclerotic heart disease of native coronary artery without angina pectoris; F32.9 Major depressive disorder, single episode, unspecified; G62.9 Polyneuropathy, unspecified; F10.21 Alcohol dependence, in remission; F17.210 Nicotine dependence, cigarettes, uncomplicated; G89.29 Other chronic pain; Z66 Do not resuscitate; I25.2 Old myocardial infarction; Z79.82 Long term (current) use of aspirin; Z79.51 Long term (current) use of inhaled steroids; Z79.899 Other long term (current) drug therapy; Z80.0 Family history of malignant neoplasm of digestive organs; Z86.19 Personal history of other infectious and parasitic diseases
CPT/HCPCS: 36415; 71045; 80048; 80053; 83605; 84484; 85025; 87040; 87070; 87077; 87205; 87641; 93005; 94640; 99285; A9270-GY; G0378; J0456; J1644; J2920; J2930; J7512

== ENCOUNTER 2021-12-27 05:33 | Inpatient (IN) ==
[2021-12-27] MEDS ORDERED: Lactated Ringers 1000 ml BAG 1,000 ML IV ONE (06:25)
[2021-12-27 07:48] LABS: ABS Lymphocytes 1.4 10^3/ul (1.0-4.8); ABS Neutrophils 15.5 10^3/ul (1.5-7.7); Hematocrit 32 % (42-52); Hemoglobin 10.8 g/dL (14.0-18.0); Lymphocyte % 7.6 %; Mean Corpuscular HGB Conc 34 g/dL (31-36); Mean Corpuscular Hemoglobin 27 pg (27-31); Mean Corpuscular Volume 79 fL (80-94); Mean Platelet Volume 7.3 fL (7.4-10.4); Platelet Count 318 10^3/uL (150-450); Red Blood Count 4.06 10^6 /uL (4.18-5.48); Red Cell Distribution Width 17 % (10-15); White Blood Count 17.9 10^3/uL (3.5-10.8)
[2021-12-27 07:59] LABS: Venous Bicarbonate HCO3 28.3 mmol/L (24-28)
[2021-12-27] MEDS ORDERED: cefTRIAXone 1 gm/50 mL D5W 1 GM/50 ML BAG IV ONE (08:10)
[2021-12-27 08:41] LABS: Albumin 3.1 g/dL (3.2-5.2); Albumin/Globulin Ratio 1.4 (1-3); C Reactive Protein 79.56 mg/L (<8.01); Calcium 8.2 mg/dL (8.6-10.3); Globulin 2.2 g/dL (2-4); Potassium 4.4 mmol/L (3.5-5.0); Total Bilirubin 0.9 mg/dL (0.2-1.0); Total Protein 5.3 g/dL (6.4-8.9); eGFR CKD-EPI 109.8 (>60)
[2021-12-27] MEDS ORDERED: Azithromycin 500 mg/250 ml NS 500 MG/250 ML BAG IVPB ONE (08:45)
[2021-12-27 09:18] LABS: High Sensitivity Troponin 1 Hr 3 pg/mL (<20)
[2021-12-27] MEDS ORDERED: Ondansetron 4 mg VIAL 2 MG/ML 2 ml VIAL IV PRN (09:48)
[2021-12-27] MEDS ORDERED: Albuterol HFA INHALER 8 gm MDI INH PRN (09:48)
[2021-12-27] MEDS: DOXYcycline 100 MG in NS 0.9% 250 ml 250 ML IVPB SCH ×2 (11:43→23:00)
[2021-12-27] MEDS: SPIRIVA Respimat (tiotropium) 2.5 mcg/inh Inhaler INH SCH (14:44)
[2021-12-27] MEDS: Enoxaparin 30 MG/0.3 ML SYR SUBCUT SCH (15:21)
[2021-12-27] MEDS: Mometasone/Formoter 200/5 MDI INH SCH (20:51)
[2021-12-28 06:14] LABS: ABS Eosinophils 0.1 10^3/ul (0-0.6); ABS Lymphocytes 1.3 10^3/ul (1.0-4.8); ABS Monocytes 0.6 10^3/ul (0-0.8); ABS Neutrophils 5.3 10^3/ul (1.5-7.7); Eosinophil % 1.5 %; Hematocrit 26 % (42-52); Hemoglobin 8.7 g/dL (14.0-18.0); Lymphocyte % 18.1 %; Mean Corpuscular HGB Conc 33 g/dL (31-36); Mean Corpuscular Hemoglobin 26 pg (27-31); Mean Corpuscular Volume 79 fL (80-94); Platelet Count 224 10^3/uL (150-450); Red Cell Distribution Width 17 % (10-15); White Blood Count 7.3 10^3/uL (3.5-10.8)
[2021-12-28 07:00] LABS: Calcium 7.7 mg/dL (8.6-10.3); Magnesium 1.7 mg/dL (1.9-2.7); Potassium 3.9 mmol/L (3.5-5.0); eGFR CKD-EPI 111.8 (>60)
[2021-12-28] MEDS: SPIRIVA Respimat (tiotropium) 2.5 mcg/inh Inhaler INH SCH (07:47)
[2021-12-28] MEDS: Mometasone/Formoter 200/5 MDI INH SCH ×2 (07:47→21:20)
[2021-12-28] MEDS ORDERED: Magnesium Sulfate 2 gm BAG 2 GM/50 ML BAG IVPB ONE (07:56)
[2021-12-28] MEDS: cefTRIAXone 1 gm/50 mL D5W 1 GM/50 ML BAG IV SCH (08:53)
[2021-12-28] MEDS: Multivitamins/Minerals TAB PO SCH (08:58)
[2021-12-28] MEDS: Aspirin EC 81 mg TAB.EC (enteric coated) PO SCH (08:58)
[2021-12-28] MEDS: VARENICLINE 1 MG PO SCH (08:59)
[2021-12-28] MEDS: Enoxaparin 30 MG/0.3 ML SYR SUBCUT SCH (11:06)
[2021-12-28] MEDS: DOXYcycline 100 MG in NS 0.9% 250 ml 250 ML IVPB SCH ×3 (11:09→22:21)
[2021-12-28] MEDS ORDERED: Bismuth Subsalicylate (BTL) 525 MG/30 ML (BULK BTL) PO PRN (11:10)
[2021-12-28 14:53] LABS: ABS Lymphocytes 0.5 10^3/ul (1.0-4.8); ABS Monocytes 0.1 10^3/ul (0-0.8); Eosinophil % 0.1 %; Hematocrit 25 % (42-52); Hemoglobin 8.3 g/dL (14.0-18.0); Lymphocyte % 5.3 %; Mean Corpuscular HGB Conc 33 g/dL (31-36); Mean Corpuscular Hemoglobin 26 pg (27-31); Mean Corpuscular Volume 80 fL (80-94); Mean Platelet Volume 7.3 fL (7.4-10.4); Platelet Count 231 10^3/uL (150-450); Red Blood Count 3.17 10^6 /uL (4.18-5.48); Red Cell Distribution Width 16 % (10-15); White Blood Count 8.6 10^3/uL (3.5-10.8)
[2021-12-28 15:32] LABS: Total Iron Binding Capacity 167 mcg/dL (250-450); Transferrin 119 mg/dL (203-362)
[2021-12-28 15:50] LABS: Ferritin 85.1 ng/mL (24-336)
[2021-12-28 15:52] LABS: % Iron Saturation 12 % (15-55); Iron < 20 ug/dL (50-212); Unsaturated Iron Binding 147 ug/dL
[2021-12-28] MEDS: Pantoprazole VIAL 40 MG VIAL IV SCH (20:51)
[2021-12-28] MEDS: Lactated Ringers 1000 ml BAG 1,000 ML IV SCH (23:41)
[2021-12-29] MEDS: SPIRIVA Respimat (tiotropium) 2.5 mcg/inh Inhaler INH SCH (07:42)
[2021-12-29] MEDS: Mometasone/Formoter 200/5 MDI INH SCH ×2 (07:45→20:02)
[2021-12-29] MEDS: Pantoprazole VIAL 40 MG VIAL IV SCH ×2 (10:40→20:40)
[2021-12-29] MEDS: cefTRIAXone 1 gm/50 mL D5W 1 GM/50 ML BAG IV SCH (10:40)
[2021-12-29] MEDS: Enoxaparin 30 MG/0.3 ML SYR SUBCUT SCH (10:40)
[2021-12-29] MEDS: Lactated Ringers 1000 ml BAG 1,000 ML IV SCH (10:41)
[2021-12-29 11:06] LABS: Urine Appearance Clear; Urine Bilirubin Negative (Negative); Urine Blood Negative (Negative); Urine Color Yellow; Urine Glucose 1+(50 mg/dL) (Negative); Urine Ketones Negative (Negative); Urine Nitrite Negative (Negative); Urine Protein Negative (Negative); Urine Specific Gravity 1.026 (1.002-1.030); Urine Urobilinogen Negative (Negative)
[2021-12-29] MEDS: Aspirin EC 81 mg TAB.EC (enteric coated) PO SCH (12:49)
[2021-12-29] MEDS: Multivitamins/Minerals TAB PO SCH (12:49)
[2021-12-29] MEDS: VARENICLINE 1 MG PO SCH (12:52)
[2021-12-29] MEDS: DOXYcycline 100 MG in NS 0.9% 250 ml 250 ML IVPB SCH ×2 (12:52→22:37)
[2021-12-30] MEDS: Lactated Ringers 1000 ml BAG 1,000 ML IV SCH (06:15)
[2021-12-30] MEDS: SPIRIVA Respimat (tiotropium) 2.5 mcg/inh Inhaler INH SCH (07:11)
[2021-12-30] MEDS: Mometasone/Formoter 200/5 MDI INH SCH ×2 (07:11→19:13)
[2021-12-30] MEDS: Aspirin EC 81 mg TAB.EC (enteric coated) PO SCH (08:50)
[2021-12-30] MEDS: Multivitamins/Minerals TAB PO SCH (08:50)
[2021-12-30] MEDS: VARENICLINE 1 MG PO SCH (08:51)
[2021-12-30] MEDS: Enoxaparin 30 MG/0.3 ML SYR SUBCUT SCH (08:55)
[2021-12-30] MEDS: Pantoprazole VIAL 40 MG VIAL IV SCH ×2 (08:56→20:31)
[2021-12-30 09:28] LABS: ABS Lymphocytes 0.7 10^3/ul (1.0-4.8); ABS Monocytes 0.2 10^3/ul (0-0.8); ABS Neutrophils 9.3 10^3/ul (1.5-7.7); Hematocrit 26 % (42-52); Hemoglobin 8.6 g/dL (14.0-18.0); Lymphocyte % 7.2 %; Mean Corpuscular HGB Conc 33 g/dL (31-36); Mean Corpuscular Hemoglobin 26 pg (27-31); Mean Corpuscular Volume 80 fL (80-94); Mean Platelet Volume 7.3 fL (7.4-10.4); Platelet Count 255 10^3/uL (150-450); Red Blood Count 3.25 10^6 /uL (4.18-5.48); Red Cell Distribution Width 17 % (10-15); White Blood Count 10.2 10^3/uL (3.5-10.8)
[2021-12-30 09:57] LABS: Calcium 7.6 mg/dL (8.6-10.3); Magnesium 1.6 mg/dL (1.9-2.7); Potassium 4.1 mmol/L (3.5-5.0); eGFR CKD-EPI 105.7 (>60)
[2021-12-30] MEDS: cefTRIAXone 1 gm/50 mL D5W 1 GM/50 ML BAG IV SCH (10:04)
[2021-12-30] MEDS: DOXYcycline 100 MG in NS 0.9% 250 ml 250 ML IVPB SCH ×2 (12:09→22:05)
[2021-12-30] MEDS ORDERED: Magnesium Sulfate IV 3 GM in NS 0.9% 100 ml BAG 100 ML IVPB ONE (22:32)
[2021-12-30] MEDS ORDERED: Magnesium Sulfate 1 GM IV 1 GM/100 ML BAG IV ONE (22:45)
[2021-12-30] MEDS ORDERED: Magnesium Sulfate 2 GM IV (Premix) IVPB ONE (23:15)
[2021-12-31] MEDS: SPIRIVA Respimat (tiotropium) 2.5 mcg/inh Inhaler INH SCH (07:17)
[2021-12-31] MEDS: Mometasone/Formoter 200/5 MDI INH SCH ×2 (07:18→19:35)
[2021-12-31] MEDS: Aspirin EC 81 mg TAB.EC (enteric coated) PO SCH (07:48)
[2021-12-31] MEDS: VARENICLINE 1 MG PO SCH (07:49)
[2021-12-31] MEDS: Multivitamins/Minerals TAB PO SCH (07:49)
[2021-12-31] MEDS: Pantoprazole VIAL 40 MG VIAL IV SCH ×2 (08:20→21:13)
[2021-12-31] MEDS: cefTRIAXone 1 gm/50 mL D5W 1 GM/50 ML BAG IV SCH (08:21)
[2021-12-31] MEDS: Enoxaparin 30 MG/0.3 ML SYR SUBCUT SCH (10:09)
[2021-12-31] MEDS ORDERED: Lactated Ringers 500 ml BAG 500 ML IV ONE (12:26)
[2021-12-31] MEDS ORDERED: Nicotine GUM 4MG FRUIT FLAVOR PO PRN (12:31)
[2021-12-31] MEDS: Nicotine PATCH 21 MG/24 HR PATCH TRANSDERM SCH (13:12)
[2022-01-01 06:04] LABS: ABS Lymphocytes 1.6 10^3/ul (1.0-4.8); ABS Monocytes 0.7 10^3/ul (0-0.8); ABS Neutrophils 7.4 10^3/ul (1.5-7.7); Eosinophil % 0.5 %; Hematocrit 26 % (42-52); Hemoglobin 8.7 g/dL (14.0-18.0); Lymphocyte % 16.2 %; Mean Corpuscular HGB Conc 33 g/dL (31-36); Mean Corpuscular Hemoglobin 26 pg (27-31); Mean Corpuscular Volume 80 fL (80-94); Mean Platelet Volume 7.1 fL (7.4-10.4); Platelet Count 272 10^3/uL (150-450); Red Blood Count 3.28 10^6 /uL (4.18-5.48); Red Cell Distribution Width 17 % (10-15); White Blood Count 9.7 10^3/uL (3.5-10.8)
[2022-01-01 06:37] LABS: Calcium 7.8 mg/dL (8.6-10.3); Potassium 4.3 mmol/L (3.5-5.0); eGFR CKD-EPI 107.9 (>60)
[2022-01-01] MEDS: SPIRIVA Respimat (tiotropium) 2.5 mcg/inh Inhaler INH SCH (08:03)
[2022-01-01] MEDS: Mometasone/Formoter 200/5 MDI INH SCH ×2 (08:03→19:34)
[2022-01-01] MEDS ORDERED: Lactated Ringers 500 ml BAG 500 ML IV ONE (08:47)
[2022-01-01] MEDS: Nicotine PATCH 21 MG/24 HR PATCH TRANSDERM SCH (08:58)
[2022-01-01] MEDS: cefTRIAXone 1 gm/50 mL D5W 1 GM/50 ML BAG IV SCH (10:15)
[2022-01-01] MEDS: Multivitamins/Minerals TAB PO SCH (11:10)
[2022-01-01] MEDS: Aspirin EC 81 mg TAB.EC (enteric coated) PO SCH (11:10)
[2022-01-01] MEDS: Enoxaparin 30 MG/0.3 ML SYR SUBCUT SCH (11:11)
[2022-01-01] MEDS: Pantoprazole VIAL 40 MG VIAL IV SCH ×2 (11:47→21:45)
[2022-01-01] MEDS: Lactated Ringers 1000 ml BAG 1,000 ML IV SCH ×2 (11:54→19:42)
[2022-01-01] MEDS ORDERED: Naloxone 0.4 mg VIAL 0.4 mg/ml 1 ml VIAL IV PRN (14:44)
[2022-01-01] MEDS ORDERED: Propofol 10 MG/ML 20 ML BTL ONE (14:50)
[2022-01-01] MEDS ORDERED: Lidocaine 2% PF 5 ML VIAL ONE (14:50)
[2022-01-01] MEDS ORDERED: fentaNYL 100 mcg/2 ml 50 MCG/ML VIAL ONE (14:51)
[2022-01-01] MEDS ORDERED: Polyethylene Glycol 3350 17 GM PACKET PO ONE (20:00)
[2022-01-02] MEDS: Lactated Ringers 1000 ml BAG 1,000 ML IV SCH ×2 (03:48→14:49)
[2022-01-02] MEDS: Mometasone/Formoter 200/5 MDI INH SCH ×2 (07:59→19:32)
[2022-01-02] MEDS: SPIRIVA Respimat (tiotropium) 2.5 mcg/inh Inhaler INH SCH (08:00)
[2022-01-02] MEDS ORDERED: PEG 3000 GI LAVAGE 1 GALLON PO ONE ×2 (08:54)
[2022-01-02] MEDS: Nicotine PATCH 21 MG/24 HR PATCH TRANSDERM SCH (10:38)
[2022-01-02] MEDS: Pantoprazole VIAL 40 MG VIAL IV SCH ×2 (10:39→21:04)
[2022-01-02] MEDS: Aspirin EC 81 mg TAB.EC (enteric coated) PO SCH (10:40)
[2022-01-02] MEDS: Enoxaparin 30 MG/0.3 ML SYR SUBCUT SCH (10:40)
[2022-01-02] MEDS: Multivitamins/Minerals TAB PO SCH (10:43)
[2022-01-02] MEDS: cefTRIAXone 1 gm/50 mL D5W 1 GM/50 ML BAG IV SCH (10:47)
[2022-01-02] MEDS ORDERED: Lactated Ringers 500 ml BAG 500 ML IV ONE (14:50)
[2022-01-02] MEDS ORDERED: Iohexol 350 (CONTRAST) 500 ML MDV IV ONE (15:50)
[2022-01-03 05:52] LABS: ABS Lymphocytes 1.3 10^3/ul (1.0-4.8); ABS Monocytes 0.7 10^3/ul (0-0.8); ABS Neutrophils 7.8 10^3/ul (1.5-7.7); Eosinophil % 0.1 %; Hematocrit 23 % (42-52); Hemoglobin 7.6 g/dL (14.0-18.0); Lymphocyte % 13.2 %; Mean Corpuscular HGB Conc 33 g/dL (31-36); Mean Corpuscular Hemoglobin 26 pg (27-31); Mean Corpuscular Volume 80 fL (80-94); Mean Platelet Volume 6.5 fL (7.4-10.4); Platelet Count 274 10^3/uL (150-450); Red Blood Count 2.89 10^6 /uL (4.18-5.48); Red Cell Distribution Width 17 % (10-15); White Blood Count 9.8 10^3/uL (3.5-10.8)
[2022-01-03 06:35] LABS: ALT 42 U/L (7-52); AST 19 U/L (13-39); Albumin 2.3 g/dL (3.2-5.2); Albumin/Globulin Ratio 1.5 (1-3); Alkaline Phosphatase 58 U/L (35-149); Blood Urea Nitrogen 17 mg/dL (6-24); CO2 Carbon Dioxide 35 mmol/L (22-32); Calcium 7.7 mg/dL (8.6-10.3); Chloride 107 mmol/L (101-111); Globulin 1.5 g/dL (2-4); Glucose 162 mg/dL (70-100); Magnesium 1.8 mg/dL (1.9-2.7); Phosphorus 2.9 mg/dL (2.5-5.0); Potassium 4.3 mmol/L (3.5-5.0); Sodium 141 mmol/L (135-145); Total Protein 3.8 g/dL (6.4-8.9)
[2022-01-03 07:00] LABS: Vitamin D Total 25(OH) 21.5 ng/mL (20-50)
[2022-01-03] MEDS: SPIRIVA Respimat (tiotropium) 2.5 mcg/inh Inhaler INH SCH (07:29)
[2022-01-03] MEDS: Mometasone/Formoter 200/5 MDI INH SCH ×2 (07:30→19:07)
[2022-01-03] MEDS: Nicotine PATCH 21 MG/24 HR PATCH TRANSDERM SCH (09:07)
[2022-01-03] MEDS: Enoxaparin 30 MG/0.3 ML SYR SUBCUT SCH (09:08)
[2022-01-03] MEDS: Pantoprazole VIAL 40 MG VIAL IV SCH ×2 (09:08→20:31)
[2022-01-03] MEDS: Aspirin EC 81 mg TAB.EC (enteric coated) PO SCH (09:09)
[2022-01-03] MEDS: Multivitamins/Minerals TAB PO SCH (09:10)
[2022-01-03] MEDS: cefTRIAXone 1 gm/50 mL D5W 1 GM/50 ML BAG IV SCH (09:17)
[2022-01-03 10:56] LABS: Rapid COVID-19 Molecular Undetected (Undetected)
[2022-01-04] MEDS: Mometasone/Formoter 200/5 MDI INH SCH ×2 (08:27→20:22)
[2022-01-04] MEDS: SPIRIVA Respimat (tiotropium) 2.5 mcg/inh Inhaler INH SCH (08:27)
[2022-01-04] MEDS: Nicotine PATCH 21 MG/24 HR PATCH TRANSDERM SCH (09:31)
[2022-01-04] MEDS: Multivitamins/Minerals TAB PO SCH (09:32)
[2022-01-04] MEDS: Aspirin EC 81 mg TAB.EC (enteric coated) PO SCH (09:33)
[2022-01-04] MEDS: Pantoprazole VIAL 40 MG VIAL IV SCH ×2 (09:34→20:17)
[2022-01-04] MEDS: Enoxaparin 30 MG/0.3 ML SYR SUBCUT SCH (11:39)
[2022-01-04] MEDS ORDERED: fentaNYL 100 mcg/2 ml 50 MCG/ML VIAL ONE (14:18)
[2022-01-04] MEDS ORDERED: Midazolam 10 mg/10 ml VIAL 1 mg/ml 10 ml VIAL (10 mg) ONE (14:18)
[2022-01-05 06:55] LABS: ABS Eosinophils 0.1 10^3/ul (0-0.6); ABS Lymphocytes 1.6 10^3/ul (1.0-4.8); ABS Monocytes 0.6 10^3/ul (0-0.8); ABS Neutrophils 6.6 10^3/ul (1.5-7.7); Eosinophil % 1.2 %; Hematocrit 27 % (42-52); Lymphocyte % 17.8 %; Mean Corpuscular HGB Conc 33 g/dL (31-36); Mean Corpuscular Hemoglobin 27 pg (27-31); Mean Corpuscular Volume 81 fL (80-94); Mean Platelet Volume 6.5 fL (7.4-10.4); Platelet Count 287 10^3/uL (150-450); Red Blood Count 3.38 10^6 /uL (4.18-5.48); Red Cell Distribution Width 19 % (10-15); White Blood Count 8.9 10^3/uL (3.5-10.8)
[2022-01-05] MEDS: Mometasone/Formoter 200/5 MDI INH SCH ×2 (07:19→21:25)
[2022-01-05] MEDS: SPIRIVA Respimat (tiotropium) 2.5 mcg/inh Inhaler INH SCH (07:19)
[2022-01-05] MEDS: Pantoprazole VIAL 40 MG VIAL IV SCH (08:26)
[2022-01-05] MEDS: Nicotine PATCH 21 MG/24 HR PATCH TRANSDERM SCH (08:26)
[2022-01-05] MEDS: Aspirin EC 81 mg TAB.EC (enteric coated) PO SCH (08:27)
[2022-01-05] MEDS: Multivitamins/Minerals TAB PO SCH (08:27)
[2022-01-05] MEDS: Enoxaparin 30 MG/0.3 ML SYR SUBCUT SCH (08:30)
[2022-01-05 09:50] LABS: Folate 7.89 ng/mL (5.90-24.80)
[2022-01-06] MEDS: Mometasone/Formoter 200/5 MDI INH SCH ×2 (07:24→19:16)
[2022-01-06] MEDS: SPIRIVA Respimat (tiotropium) 2.5 mcg/inh Inhaler INH SCH (07:25)
[2022-01-06] MEDS: Nicotine PATCH 21 MG/24 HR PATCH TRANSDERM SCH (07:29)
[2022-01-06] MEDS: Aspirin EC 81 mg TAB.EC (enteric coated) PO SCH (08:50)
[2022-01-06] MEDS: Multivitamins/Minerals TAB PO SCH (08:51)
[2022-01-06] MEDS: Enoxaparin 30 MG/0.3 ML SYR SUBCUT SCH (10:50)
[2022-01-07] MEDS: Mometasone/Formoter 200/5 MDI INH SCH (07:55)
[2022-01-07] MEDS: SPIRIVA Respimat (tiotropium) 2.5 mcg/inh Inhaler INH SCH (07:55)
[2022-01-07 08:00] VITALS: BP 106/59
[2022-01-07] MEDS: Multivitamins/Minerals TAB PO SCH (08:54)
[2022-01-07] MEDS: Aspirin EC 81 mg TAB.EC (enteric coated) PO SCH (08:57)
[2022-01-07] MEDS: Nicotine PATCH 21 MG/24 HR PATCH TRANSDERM SCH (09:01)
[2022-01-07] MEDS: Enoxaparin 30 MG/0.3 ML SYR SUBCUT SCH (09:01)
== END 2022-01-07 11:10 | DRG 871 ==
LOC: EDHOLD 05:33 → ED 05:33 → SUATTDRO 10:08 → EDHOLD 13:54 → MEDTELE 14:21 → SUATTDRO 12-28 11:00
PROVIDERS: ADMIT Hospitalist; ATTEND Internal Medicine
PROC: O.GIEGD (2022-01-01 14:40)